=== PATIENT | male | born 1960 | race Caucasian/White ===

== ENCOUNTER 2023-10-18 10:35 | Observation (INO) | payer BC, SELFPAY ==
[2023-10-18] VITALS (72 sets, daily range): BP systolic 85–193; BP diastolic 68–139; PULSE 99–140; RESP 4–33; TEMP 36.3–36.6; O2SAT 93–98; BMI 35.9; BMI 36.7
--- NOTE | 2023-10-18 10:52 | ECG_ITS ---
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
--- NOTE | 2023-10-18 10:52 | ED.SOB1 ---
HPI - SOB/Dyspnea General Chief Complaint: Shortness of Breath/Dyspnea Stated Complaint: SOB Time Seen by Provider: 10/18/23 10:44 Source: patient Mode of arrival: walk-in Limitations: no limitations History of Present Illness HPI Narrative: 63-year-old male presents to the emergency department for shortness of breath. He states that he has not had a fever or cough. He gets quite short of breath with any small exertion. He also noted a swollen painful area in his left calf. He has never had a DVT. No injury there. He has been feeling this way for the last day or 2. Related Data Home Medications Medication Instructions Recorded Confirmed lisinopril 20 mg tablet 20 mg PO DAILY 10/18/23 10/18/23 Allergies Allergy/AdvReac Type Severity Reaction Status Date / Time aspirin Allergy Severe Verified 10/18/23 10:44 albuterol AdvReac Severe Palpitation Verified 10/18/23 10:44 s azithromycin [From Zithromax] AdvReac Severe Palpitation Verified 10/18/23 10:44 s Review of Systems ROS Narrative A ten point review of systems is negative except as noted above. PFSH PFSH Social History Smoking status: Former smoker Exam Narrative Exam Narrative: Nurses note and vital signs reviewed and patient is not hypoxic. General: The patient appears mildly dyspneic. Skin: Warm, dry, no pallor noted. There is no rash noted. Head: Normocephalic, atraumatic Eye: Normal conjunctiva, no drainage Ears, Nose, Mouth, and Throat: oral mucosa is moist. Nares patent. Cardiovascular: Regular Rate and Rhythm, tachycardia Respiratory: Patient is mildly dyspneic, no accessory muscle use, lungs are clear to auscultation, no wheezing, rales or rhonchi Back: non-tender GI: no tenderness to palpation, no masses appreciated. No rebound, guarding, or rigidity noted. Musculoskeletal: Chronic ankle edema present. He has a firm tender area on his left inferior medial calf region. Neurological: A&O x4, normal speech Psychiatric: Cooperative Constitutional Vital Signs, click to edit/add: Last Vital Signs Temp 97.7 F 10/18/23 10:38 Pulse 116 H 10/18/23 15:00 Resp 16 10/18/23 15:00 BP 176/110 H 10/18/23 14:42 Pulse Ox 95 10/18/23 12:31 Course Vital Signs Vital signs: Vital Signs Temperature 97.7 F 10/18/23 10:38 Pulse Rate 135 H 10/18/23 10:38 Respiratory Rate 20 10/18/23 10:38 Pulse Oximetry 98 10/18/23 10:38 Temperature 97.7 F 10/18/23 10:38 Pulse Rate 116 H 10/18/23 15:00 Respiratory Rate 16 10/18/23 15:00 Blood Pressure 176/110 H 10/18/23 14:42 Pulse Oximetry 95 10/18/23 12:31 MDM - SOB/Dyspnea MDM Narrative Medical decision making narrative: The patient presented with shortness of breath and he had persistent tachycardia here. CTA does not show a PE or pneumonia and his laboratory analysis is essentially negative. He was given IV Cardizem bolus which slowed his heart rate down and then he was placed on a Cardizem drip. He was also given additional IV hydralazine because of elevated blood pressure. He is being admitted to the ICU. Treatment diagnosis and disposition were discussed with the patient Differential Diagnosis Differential diagnosis: Likely congestive heart failure, community acquired pneumonia, asthma with exacerbation, pulmonary embolism and other (Pneumonia, pneumothorax) Lab Data Attestation: I reviewed the patient's lab results. Labs: Lab Results 10/18/23 10/18/23 Range/Units 10:47 10:53 WBC 8.4 (4.0-11.0) 10^3/uL RBC 4.88 (4.70-6.10) 10^6/uL Hgb 15.0 (14.0-18.0) g/dL Hct 45.7 (42.0-54.0) % MCV 93.6 (80.0-94.0) fL MCH 30.7 (25.9-34.0) pg MCHC 32.8 (29.9-35.2) g/dL RDW 12.8 (11.0-15.0) % Plt Count 213 (150-450) 10^3/uL MPV 9.4 L (9.5-13.5) fL Neut % (Auto) 71.4 (43.0-75.0) % Lymph % (Auto) 17.8 L (20.5-60.0) % Darke % (Auto) 9.4 (1.7-12.0) % Eos % (Auto) 1.1 (0.9-7.0) % Baso % (Auto) 0.1 L (0.2-2.0) % Neut # (Auto) 6.0 (1.4-6.5) 10^3/uL Lymph # (Auto) 1.5 (1.2-3.8) 10^3/uL Darke # (Auto) 0.8 (0.3-0.8) 10^3/uL Eos # (Auto) 0.1 (0.0-0.7) 10^3/uL Baso # (Auto) 0.0 (0.0-0.1) 10^3/uL Abs Immat Gran (auto) 0.02 (0.00-0.03) 10^3/uL Imm/Tot Granulo (auto) 0.2 (0.0-0.5) % Sodium 144 (136-145) mmol/L Potassium 4.3 (3.5-5.1) mmol/L Chloride 107 (98-107) mmol/L Carbon Dioxide 29.3 (21.0-32.0) mmol/L Anion Gap 12.0 BUN 23.0 H (7.0-18.0) mg/dL Creatinine 1.39 H (0.70-1.30) mg/dL Est GFR ( Amer) >60 (>=60) Est GFR (Non-Af Amer) 52 L (>=60) BUN/Creatinine Ratio 16.5 Glucose 114 H (74-106) mg/dL Calcium 9.0 (8.5-10.1) mg/dL Troponin I High Sens 29.3 (4.0-76.1) pg/mL Influenza Type A Ag Negative Influenza Type B Ag Negative SARS-CoV-2 Ag (CV2AG) Negative (NEGATIVE) Imaging Data CT scan - chest: Radiologist's impression: ITS Impressions Chest X-Ray 10/18/23 11:05 IMPRESSION: No acute heart or lung disease identified. Electronically authenticated by: DOUG JETT Date: 10/18/2023 11:38 Chest CTA 10/18/23 12:10 IMPRESSION: Negative exam. No pulmonary embolism or any acute cardiopulmonary abnormality demonstrated. Electronically authenticated by: BENNIE CRAWFORD Date: 10/18/2023 13:07 Venous Doppler Study 10/18/23 12:11 IMPRESSION: No sonographic evidence of deep venous thrombosis of the bilateral lower extremities. Noncompressible left great saphenous vein, representing thrombophlebitis. Electronically authenticated by: FAITH AMATO Date: 10/18/2023 13:36 ECG Data Attestation: I personally reviewed and interpreted this ECG as follows: (Initial EKG on my interpretation showed sinus tachycardia, uncertain rhythm. Repeat after IV Cardizem was given shows sawtooth pattern consistent with atrial flutter.) Critical Care Time Critical Care Time Critical Care Time: Yes Total Critical Care Time: 40 Attestation: Due to the high probability of sudden and clinically significant deterioration in the patient's condition he/she required the highest level of my preparedness to intervene urgently I provided critical care time including documentation time, medication orders and management, reevaluation, vital sign assessment, ordering and reviewing of lab tests, ordering and reviewing of x-ray studies, and admission orders. Aggregate critical care time is 40 minutes including only time during which I was engaged in work directly related to his/her care and did not include time spent treating other patients simultaneously. Discharge Plan Discharge Chief Complaint: Shortness of Breath/Dyspnea Clinical Impression: Atrial flutter Patient Disposition: Admitted As Inpatient Time of Disposition Decision: 15:25 Condition: Good Prescriptions / Home Meds: No Action lisinopril 20 mg tablet 20 mg PO DAILY Referrals: SHAQUILLE WHITTEN [Primary Care Provider] - 1 week
[2023-10-18 11:01] LABS: Basophils Percent Auto 0.1 % (0.2-2.0); Eosinophils Absolute Auto 0.1 10^3/uL (0.0-0.7); Eosinophils Percent Auto 1.1 % (0.9-7.0); Hematocrit 45.7 % (42.0-54.0); Immature Granulocytes Abs Auto 0.02 10^3/uL (0.00-0.03); Immature Granulocytes Pct Auto 0.2 % (0.0-0.5); Lymphocytes Absolute Auto 1.5 10^3/uL (1.2-3.8); Lymphocytes Percent Auto 17.8 % (20.5-60.0); Mean Corpuscular HGB Conc 32.8 g/dL (29.9-35.2); Mean Corpuscular Hemoglobin 30.7 pg (25.9-34.0); Mean Corpuscular Volume 93.6 fL (80.0-94.0); Mean Platelet Volume 9.4 fL (9.5-13.5); Monocytes Absolute Auto 0.8 10^3/uL (0.3-0.8); Monocytes Percent Auto 9.4 % (1.7-12.0); Neutrophils Percent Auto 71.4 % (43.0-75.0); Platelet Count 213 10^3/uL (150-450); Red Blood Count 4.88 10^6/uL (4.70-6.10); Red Cell Distribution Width 12.8 % (11.0-15.0); White Blood Count 8.4 10^3/uL (4.0-11.0)
--- NOTE | 2023-10-18 11:05 | XR_ITS ---
The [address] [address] Patient Name: LAISHA PERRIN MRN: [id number] date: 1960 Sex: M Assigned Patient Location: ER Current Patient Location: ER Accession/Order Number: [id number] Exam Date: 10/18/2023 11:00 Report Date: 10/18/2023 11:38 At the request of: RASHEEDA SAMS Procedure: XR chest 1V EXAM: XR chest 1V HISTORY: . SOB . COMPARISON: 07/11/2013 TECHNIQUE: Single view of the chest FINDINGS: Heart and vascularity are unremarkable. Lungs are free of focal infiltrates. No acute bony abnormality is appreciated. Left costophrenic angle was excluded on today's exam. XR/XR chest 1V IMPRESSION: No acute heart or lung disease identified. Electronically authenticated by: DOUG JETT Date: 10/18/2023 11:38
[2023-10-18 11:25] LABS: Influenza Virus A Antigen Negative; Influenza Virus B Antigen Negative; Internal Control Within Normal Limits; SARS-CoV-2 Ag NEGATIVE (NEGATIVE)
[2023-10-18 11:32] LABS: BUN Creatinine Ratio 16.5; Carbon Dioxide 29.3 mmol/L (21.0-32.0); Chloride 107 mmol/L (98-107); Estimated GFR (African America >60 (>=60); Estimated GFR (Non-African Ame 52 (>=60); Glucose 114 mg/dL (74-106); Potassium 4.3 mmol/L (3.5-5.1); Sodium 144 mmol/L (136-145); Troponin I High Sensitivity 29.3 pg/mL (4.0-76.1)
--- NOTE | 2023-10-18 12:10 | CT_ITS ---
[address] [address] Patient Name: LAISHA PERRIN MRN: [id number] date: 1960 Sex: M Assigned Patient Location: ER Current Patient Location: ER Accession/Order Number: [id number] Exam Date: 10/18/2023 12:33 Report Date: 10/18/2023 13:07 At the request of: RASHEEDA SAMS Procedure: CT angio chest EXAM: CT angio chest; [id number] REASON FOR EXAM: Short of breath, tachycardia TECHNIQUE: Helical CT images of the chest were obtained after the administration of IV contrast. Multiplanar reformats and maximum intensity projection images were created at the scanner. Dose reduction technique used: Automated exposure control and/or adjustment of the mA and/or kV according to patient size and/or use of iterative reconstruction technique. COMPARISON: None. FINDINGS: Technical quality: Good. Chest: Support devices: None. Visualized Thyroid: No nodules. Chest wall: Within normal limits. Earline/mediastinum/esophagus: No mass. Thoracic lymph nodes: Benign granulomatous calcifications are present within the intrathoracic lymph nodes. Heart and vasculature: -No pulmonary artery filling defect to suggest pulmonary embolism. -Moderate cardiomegaly and mild dilation of the right and left main pulmonary arteries. -No pericardial effusion or aortic aneurysm. Visualized portions of the upper abdomen: Within normal limits. Musculoskeletal: No acute abnormality or suspicious osseous lesion. Lungs/airways: -There are 2 benign calcified granulomas present. -Mild bilateral dependent subpleural scarring and/or atelectasis. -Mild centrilobular emphysema. -No significant nodule or infiltrate. -The central airways are patent. Pleura: No pleural effusion or pneumothorax. CT/CT angio chest IMPRESSION: Negative exam. No pulmonary embolism or any acute cardiopulmonary abnormality demonstrated. Electronically authenticated by: BENNIE CRAWFORD Date: 10/18/2023 13:07
--- NOTE | 2023-10-18 12:11 | US_ITS ---
The [address] [address] Patient Name: LAISHA PERRIN MRN: [id number] date: 1960 Sex: M Assigned Patient Location: ER Current Patient Location: ER Accession/Order Number: [id number] Exam Date: 10/18/2023 12:13 Report Date: 10/18/2023 13:36 At the request of: RASHEEDA SAMS Procedure: US venous doppler LE BI EXAM: US venous doppler LE BI HISTORY: Pain and swelling COMPARISON: None. TECHNIQUE: Evaluation of the deep veins of the bilateral lower extremities was performed utilizing B-mode, color flow and spectral analysis. FINDINGS: Right lower extremity: The visualized vessels comprising the deep venous systems from the common femoral vein through the calf veins demonstrate appropriate compressibility, spontaneous color Doppler flow, and augmentation of flow on spectral Doppler with distal compression. Left lower extremity: The visualized vessels comprising the deep venous systems from the common femoral vein through the calf veins demonstrate appropriate compressibility, spontaneous color Doppler flow, and augmentation of flow on spectral Doppler with distal compression. Additional findings: Bilateral lower extremity edema is present. Noncompressible left great saphenous vein, representing thrombophlebitis. US/US venous doppler LE BI IMPRESSION: No sonographic evidence of deep venous thrombosis of the bilateral lower extremities. Noncompressible left great saphenous vein, representing thrombophlebitis. Electronically authenticated by: FAITH AMATO Date: 10/18/2023 13:36
[2023-10-18] MEDS: DILTIAZEM HCL 25 MG/5 ML VIAL 10 MG IV (13:47)
--- NOTE | 2023-10-18 13:51 | ECG_ITS ---
The 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
[2023-10-18] MEDS: dilTIAZem HCL 125 MG in 0.9 % SODIUM CHLORIDE 100 ML IV (14:41)
[2023-10-18] MEDS: HYDRALAZINE HCL 20 MG/ML VIAL 10 MG IVP (15:50)
--- NOTE | 2023-10-18 16:07 | P.HP_ITS ---
H&P: HPI History of Present Illness Chief complaint: SOB Narrative: Patient presented to the emergency room with increasing shortness of breath and rapid heart rate over the last couple of days. He does have a history of atrial fibrillation with rapid ventricular response in the past. This was related to medications. He has been on no different medications recently. In ER blood pressure was significantly elevated and found to have a acute atrial flutter with rapid ventricular rate. Started on Cardizem drip. CTA showed no pulmonary embolism. Does have some lower extremities pain ultrasound showed no DVT. Review of Systems ROS Status of ROS 10 or more systems reviewed and unremark able except as noted in history and below [facility] Social History Smoking status: Former smoker Meds Home Medications and Allergies Home Medications Medication Instructions Recorded Confirmed Type lisinopril 20 mg tablet 20 mg PO DAILY 10/18/23 10/18/23 History Allergies Allergy/AdvReac Type Severity Reaction Status Date / Time aspirin Allergy Severe Verified 10/18/23 10:44 albuterol AdvReac Severe Palpitation Verified 10/18/23 10:44 s azithromycin [From Zithromax] AdvReac Severe Palpitation Verified 10/18/23 10:44 s Exam Constitutional Vital Signs, click to edit/add: Last Vital Signs Temp 97.7 F 10/18/23 10:38 Pulse 116 H 10/18/23 15:00 Resp 16 10/18/23 15:00 BP 176/110 H 10/18/23 14:42 Pulse Ox 95 10/18/23 12:31 Documenting provider has reviewed patient's vital signs: yes Common normals: no apparent distress HENVA Common normals: nasal mucous membranes and turbinates normal Chest Common normals: inspection of chest normal Respiratory Common normals: normal respiratory effort and no retractions Cardio Common normals: irregular rate and irregular rhythm Rate: tachycardic Rhythm: abnormal rhythm GI Common normals: Normal to inspection, nondistended, normoactive bowel sounds present and soft to palpation Extremity Common normals: abnormal to inspection (Varicose veins bilaterally) Results Labs Labs: Short CBC 10/18/23 Range/Units 10:47 WBC 8.4 (4.0-11.0) 10^3/uL Hgb 15.0 (14.0-18.0) g/dL Hct 45.7 (42.0-54.0) % Plt Count 213 (150-450) 10^3/uL BMP 10/18/23 10:47 Sodium 144 Potassium 4.3 Chloride 107 Carbon Dioxide 29.3 BUN 23.0 H Creatinine 1.39 H Glucose 114 H Calcium 9.0 Assessment and Plan Assessment and Plan (1) Atrial flutter: Plan Respiratory distress, uncontrolled hypertension complicating acute atrial flutter with rapid ventricular response-Place patient on anticoagulants, check echocardiogram, check thyroid, magnesium, BNP and track serial troponins. Patient currently on Cardizem drip. Will titrate that to get heart rate less than 100. Start oral Cardizem as well. May need IV Lanoxin, as needed dosing written for. Check consult to cardiology Hypertension-continue with lisinopril, add metoprolol and the aforementioned Cardizem. Blood pressure significantly elevated on admission is possible cause for going into his atrial flutter Borderline elevation in creatinine-monitor daily. Patient states he had borderline diabetes in the past-will check sugars every morning With potentially controlling his rate and anticoagulating tonight possible discharge tomorrow. Will place patient observation status.
[2023-10-18 16:42] LABS: Magnesium 1.7 mg/dL (1.8-2.4)
[2023-10-18 16:48] LABS: Lactate/Lactic Acid 1.2 mmol/L (0.4-2.0)
[2023-10-18 16:57] LABS: Alanine Aminotransferase 28 U/L (16-63); Albumin Globulin Ratio 1.2; Albumin Level 3.7 g/dL (3.4-5.0); Alkaline Phosphatase 55 U/L (46-116); Aspartate Amino Transferase 22 U/L (15-37); Bilirubin Direct 0.3 mg/dL (0.0-0.2); Bilirubin Total 1.1 mg/dL (0.2-1.0); Free T3 2.98 pg/mL (2.18-3.98); Globulin 3.2 g/dL; Thyroid Stimulating Hormone 1.593 uIU/mL (0.358-3.740); Total Protein 6.9 g/dL (6.4-8.2); Troponin I High Sensitivity 70.5 pg/mL (4.0-76.1)
[2023-10-18 20:06] LABS: Troponin I High Sensitivity 78.5 pg/mL (4.0-76.1)
[2023-10-18] MEDS: APIXABAN 5 MG TABLET PO (21:50)
[2023-10-18] MEDS: DILTIAZEM HCL 60 MG TABLET PO (21:50)
[2023-10-18] MEDS: METOPROLOL TARTRATE 25 MG TABLET PO (21:50)
[2023-10-18] MEDS: HYDROCODONE/ACET 5-325 MG TABLET 1 TAB PO (22:33)
[2023-10-19] VITALS (24 sets, daily range): BP systolic 85–132; BP diastolic 52–109; PULSE 68–180; RESP 12–25; TEMP 36.4–36.8; O2SAT 93–97
[2023-10-19 04:34] LABS: Basophils Percent Auto 0.3 % (0.2-2.0); Eosinophils Absolute Auto 0.2 10^3/uL (0.0-0.7); Eosinophils Percent Auto 1.7 % (0.9-7.0); Hematocrit 43.3 % (42.0-54.0); Hemoglobin 14.2 g/dL (14.0-18.0); Immature Granulocytes Abs Auto 0.02 10^3/uL (0.00-0.03); Immature Granulocytes Pct Auto 0.2 % (0.0-0.5); Lymphocytes Absolute Auto 2.2 10^3/uL (1.2-3.8); Lymphocytes Percent Auto 24.5 % (20.5-60.0); Mean Corpuscular HGB Conc 32.8 g/dL (29.9-35.2); Mean Corpuscular Hemoglobin 30.7 pg (25.9-34.0); Mean Corpuscular Volume 93.5 fL (80.0-94.0); Mean Platelet Volume 9.5 fL (9.5-13.5); Monocytes Absolute Auto 0.9 10^3/uL (0.3-0.8); Monocytes Percent Auto 9.7 % (1.7-12.0); Neutrophils Absolute Auto 5.6 10^3/uL (1.4-6.5); Neutrophils Percent Auto 63.6 % (43.0-75.0); Platelet Count 216 10^3/uL (150-450); Red Blood Count 4.63 10^6/uL (4.70-6.10); Red Cell Distribution Width 13.1 % (11.0-15.0); White Blood Count 8.8 10^3/uL (4.0-11.0)
[2023-10-19 04:49] LABS: Alanine Aminotransferase 24 U/L (16-63); Albumin Globulin Ratio 1.1; Albumin Level 3.3 g/dL (3.4-5.0); Alkaline Phosphatase 49 U/L (46-116); Anion Gap 13.8; Aspartate Amino Transferase 19 U/L (15-37); BUN Creatinine Ratio 18.5; Bilirubin Total 0.7 mg/dL (0.2-1.0); Calcium 8.7 mg/dL (8.5-10.1); Carbon Dioxide 27.3 mmol/L (21.0-32.0); Chloride 106 mmol/L (98-107); Estimated GFR (African America >60 (>=60); Estimated GFR (Non-African Ame 59 (>=60); Globulin 2.9 g/dL; Glucose 110 mg/dL (74-106); Potassium 4.1 mmol/L (3.5-5.1); Sodium 143 mmol/L (136-145); Total Protein 6.2 g/dL (6.4-8.2)
--- OUTSIDE RECORDS SUMMARY | 2023-10-19 06:56 | XMS_ITS | CCD ---
Author Name Unknown Address [address] [place] [address] Organization [facility] Care Team Providers Care Medical Detail Representative Name Role Phone SHAQUILLE QUEEN Admitting Unavailable SHAQUILLE QUEEN Attending Unavailable SHAQUILLE QUEEN Primary Care Unavailable SHAQUILLE QUEEN Consulting Unavailable Shaquille Queen Unavailable Allie Gould Unavailable DO Shaquille Queen Primary Care Provider [phone] SAMANTHA Kim Attending Provider [phone] DO Shaquille Queen Attending Provider Babs Kim Admitting Unavailable Babs Kim Attending Unavailable Shaquille Queen Primary Care Unavailable Shaquille Queen Admitting Unavailable Shaquille Queen Attending Unavailable Shaquille Queen Primary Care Unavailable Allergies Allergy Classification Reported Allergen(s) Allergy Type Date of Onset Reaction(s) Facility (3 sources) Albuterol Drug Allergy [facility] [employer] Other (3 sources) Aspirin Drug Allergy Unknown [facility] Other (3 sources) Azithromycin Drug Allergy [facility] [employer] [facility] Other (3 sources) DAIRY Propensity to adverse reactions DIARRHEA [employer] Other Medications Current Medications Medication Drug Class(es) Dates Sig (Normalized) Sig (Original) 5-HTP 200 MG (3 sources) 5-HTP 200 MG as directed Orally Active Ashwagandha (3 sources) Ashwagandha 5200 mg Active cholecalciferol 0.25 mg oral capsule (1 source) Vitamin D Vitamin D3 250 MCG (50803 UT) as directed Orally Active clindamycin 300 mg oral capsule (2 sources) Lincosamide Antibacterial Start: 02-21-2023 take 1 capsule by mouth every eight hours Clindamycin HCl 300 MG 1 cap(s) Orally tid for 10 day(s) Feb, Active L-Arginine (3 sources) L-Arginine Active Magnesium glycinate (3 sources) Magnesium Glycinate Active [place] 3 1000 MG (3 sources) take 1 capsule by mouth once daily [place] 3 1000 MG 1 capsule Orally Once a day Active Turmeric Curcumin 500 MG (3 sources) take 3 tablets by mouth once daily Turmeric Curcumin 500 MG 3 tab Orally DAILY Active Vitamin D3 250 MCG (64789 UT) (2 sources) Vitamin D3 250 MCG (86413 UT) as directed Orally Active Vitamin K2 100 MCG (3 sources) Vitamin K2 100 MCG as directed Orally Active Completed/Discontinued Medications Medication Drug Class(es) Dates Sig (Normalized) Sig (Original) [place] Bergamot (3 sources) [place] Bergamot 1000 mg Not-Taking [place] Bergamot 1000 mg Active lisinopril 20 mg oral tablet (3 sources) Angiotensin Converting Enzyme Inhibitor Start: 11-23-2017 take 1 tablet by mouth every twenty-four hours Lisinopril 20 MG 1 tablet Orally Once a day for 90 day(s) PRN Nov, Not-Taking Testosterone (3 sources) Androgen Testosterone OTC Not-Taking Testosterone OTC Active Problems Active Problems Problem Classification Problem Date Documented Date Episodic/Chronic Chronic ulcer of skin (3 sources) Non-pressure chronic ulcer of other part of left foot limited to breakdown of skin; Translations: [Ulcer of left foot, limited to breakdown of skin] Chronic Diabetes mellitus without complication (1 source) Prediabetes; Translations: [Prediabetes] Onset: 07-02-2023 Episodic Diabetes mellitus without complication (1 source) Prediabetes; Translations: [PREDIABETES] Onset: 04-18-2020 Essential hypertension (6 sources) Essential (primary) hypertension; Translations: [Essential hypertension] Onset: 04-18-2020 Resolved: 04-30-2022 Chronic Malaise and fatigue (3 sources) Fatigue; Translations: [Chronic fatigue, unspecified] Chronic Other aftercare (1 source) Encounter for therapeutic drug level monitoring; Translations: [Encounter for therapeutic drug level monitoring] Onset: 07-02-2023 Episodic Other inflammatory condition of skin (3 sources) Scalp psoriasis; Translations: [Psoriasis, unspecified] Chronic Other nutritional; endocrine; and metabolic disorders (4 sources) Disorder of lipoprotein metabolism, unspecified; 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 UNS] Onset: 04-10-2020 Chronic Other nutritional; endocrine; and metabolic disorders (3 sources) Body mass index 30+ - obesity; Translations: [Body mass index (BMI) 30.0-30.9, adult] Chronic Other screening for suspected conditions (not mental disorders or infectious disease) (2 sources) Encounter for screening for malignant neoplasm of prostate; Translations: [Encounter for screening for cardiovascular disorders] Onset: 04-18-2020 Episodic Other upper respiratory disease (3 sources) Allergic rhinitis; Translations: [Allergic rhinitis, unspecified] Chronic Other upper respiratory infections (3 sources) Chronic frontal sinusitis; Translations: [Chronic frontal sinusitis] Chronic Residual codes; unclassified (3 sources) History of partial resection of colon; Translations: [Acquired absence of other specified parts of digestive tract] Episodic Skin and subcutaneous tissue infections (1 source) Cellulitis of left lower limb Episodic Unclassified (1 source) Pain in left knee; Translations: [Pain in left knee] Onset: 06-12-2023 Past or Other Problems Problem Classification Problem Date Documented Da te Episodic/Chronic Other skin disorders (1 source) Other hypertrophic disorders of the skin Onset: 04-30-2022 Resolved: 04-30-2022 Episodic Results Test Name Value Interpretation Reference Range Facility Alanine aminotransferase [En zymatic activity/volume] in Serum or PlasmaOrdered By: Shaquille Queen on 07-02-2023 ALT [Catalytic activity/Vol] 14 U/L 7-52 [facility] Albumin [Mass/volume] in Ser um or Plasma by Bromocresol green (BCG) dye binding methoOrdered By: Shaquille Queen on 07-02-2023 Albumin BCG dye [Mass/Vol] 4.3 g/dL 3.5-5.7 [facility] Alkaline phosphatase [Enzyma tic activity/volume] in Serum or PlasmaOrdered By: Shaquille Queen on 07-02-2023 ALP [Catalytic activity/Vol] 54 U/L 34-104 [facility] Aspartate aminotransferase [ Enzymatic activity/volume] in Serum or PlasmaOrdered By: Shaquille Queen on 07-02-2023 AST [Catalytic activity/Vol] 17 U/L 13-39 [facility] Basophils Auto (Bld) [#/Vol] Ordered By: Shaquille Queen on 07-02-2023 Basophils (Bld) [#/Vol] 0.0 10*3/uL 0.0-0.2 [facility] Basophils/100 WBC Auto (Bld) Ordered By: Shaquille Queen on 07-02-2023 Basophils/100 WBC (Bld) 0.3 % . [facility] Bilirubin.total [Mass/volume ] in Serum or PlasmaOrdered By: Shaquille Queen on 07-02-2023 Bilirubin [Mass/Vol] 1.1 mg/dL 0.3-1.0 [facility] Calcium [Mass/volume] in Ser um or PlasmaOrdered By: Shaquille Queen on 07-02-2023 Calcium [Mass/Vol] 9.2 mg/dL 8.6-10.3 [facility] Carbon dioxide, total [Moles /volume] in Serum or PlasmaOrdered By: Shaquille Queen on 07-02-2023 CO2 [Moles/Vol] 29.8 mmol/L 21.0-31.0 [facility] Chloride [Moles/volume] in S wander or PlasmaOrdered By: Shaquille Queen on 07-02-2023 Chloride [Moles/Vol] 101 mmol/L 98-107 [facility] Cholesterol [Mass/volume] in Serum or PlasmaOrdered By: Shaquille Queen on 07-02-2023 Cholesterol [Mass/Vol] 172 mg/dL 140-200 [facility] Comment on above: Chol less than 200 m g/dl low riskChol 201-239 mg/dl borderline riskChol 240 mg/dl and greater high risk Cholesterol in LDL Calc [Mas s/Vol]Ordered By: Shaquille Queen on 07-02-2023 Cholesterol in LDL [Mass/Vol] 116 mg/dL 0-100 [facility] Comment on above: LDL ATP III CLASSIFI CATIONLDL less than 100 mg/dL OptimalLDL 100-129 mg/dL Near or above optimalLDL 130-159 mg/dL Borderline highLDL 160-189 mg/dL HighLDL greater than 189 mg/dL Very high Cholesterol in VLDL Calc [Ma ss/Vol]Ordered By: Shaquille Queen on 07-02-2023 Cholesterol in VLDL [Mass/Vol] 16 mg/dL [facility] Complete Blood Count Auto Di ffon 07-02-2023 Basophils (Bld) [#/Vol] 0.0 10*3/uL Normal 0.0-0.2 [facility] Comment on above: Order Comment: Reaso n for Exam Essential hypertension;Pre-diabetes;Medication FASTING monitoring en Result Comment: PERF ORMED BY: [place] [address] PATHOLOGIST [employer] ALMA GONZALEZ M.D. Performed By: #### L IPID, CMP, CBC #### [facility] [address] Basophils/100 WBC (Bld) 0.3 % Normal . [facility] Comment on above: Order Comment: Reaso n for Exam Essential hypertension;Pre-diabetes;Medication FASTING monitoring en Performed By: #### L IPID, CMP, CBC #### [facility] [address] [place] [address] [place] Eosinophils (Bld) [#/Vol] 0.1 10*3/uL Normal 0.0-0.45 [facility] Comment on above: Order Comment: Reaso n for Exam Essential hypertension;Pre-diabetes;Medication FASTING monitoring en Performed By: #### L IPID, CMP, CBC #### [facility] [address] [place] [address] [place] Eosinophils/100 WBC (Bld) 2.0 % Normal . [facility] Comment on above: Order Comment: Reaso n for Exam Essential hypertension;Pre-diabetes;Medication FASTING monitoring en Performed By: #### L IPID, CMP, CBC #### [facility] [address] [place] [address] [place] Erythrocyte distribution width (RBC) [Ratio] 13.3 % Normal 12.0-14.8 [facility] Comment on above: Order Comment: Reaso n for Exam Essential hypertension;Pre-diabetes;Medication FASTING monitoring en Performed By: #### L IPID, CMP, CBC #### [address] Hematocrit (Bld) [Volume fraction] 44.5 % Normal 38.8-50.0 [facility] Comment on above: Order Comment: Reaso n for Exam Essential hypertension;Pre-diabetes;Medication FASTING monitoring en Performed By: #### L IPID, CMP, CBC #### [address] Hemoglobin (Bld) [Mass/Vol] 15.1 g/dL Normal 13.0-17.0 [facility] Comment on above: Order Comment: Reaso n for Exam Essential hypertension;Pre-diabetes;Medication FASTING monitoring en Performed By: #### L IPID, CMP, CBC #### [address] Lymphocytes (Bld) [#/Vol] 1.7 10*3/uL Normal 1.00-4.8 [facility] Comment on above: Order Comment: Reaso n for Exam Essential hypertension;Pre-diabetes;Medication FASTING monitoring en Performed By: #### L IPID, CMP, CBC #### [address] Lymphocytes/100 WBC (Bld) 22.6 % Normal . [facility] Comment on above: Order Comment: Reaso n for Exam Essential hypertension;Pre-diabetes;Medication FASTING monitoring en Performed By: #### L IPID, CMP, CBC #### [place] [address] [place] MCH (RBC) [Entitic mass] 30.9 pg Normal 27.5-35.2 [facility] Comment on above: Order Comment: Reaso n for Exam Essential hypertension;Pre-diabetes;Medication FASTING monitoring en Performed By: #### L IPID, CMP, CBC #### [address] MCV (RBC) [Entitic vol] 90.9 fL Normal 83.5-101 [facility] Comment on above: Order Comment: Reaso n for Exam Essential hypertension;Pre-diabetes;Medication FASTING monitoring en Performed By: #### L IPID, CMP, CBC #### [facility] [address] Mean Corpuscular HGB Conc 33.9 g/dL Normal 32.5-35.6 [facility] Comment on above: Order Comment: Reaso n for Exam Essential hypertension;Pre-diabetes;Medication FASTING monitoring en Performed By: #### L IPID, CMP, CBC #### [facility] [address] [place] [address] [place] Monocytes (Bld) [#/Vol] 0.8 10*3/uL Normal 0.0-0.8 [facility] Comment on above: Order Comment: Reaso n for Exam Essential hypertension;Pre-diabetes;Medication FASTING monitoring en Performed By: #### L IPID, CMP, CBC #### [facility] [address] [place] [address] [place] Monocytes/100 WBC (Bld) 10.7 % Normal . [facility] Comment on above: Order Comment: Reaso n for Exam Essential hypertension;Pre-diabetes;Medication FASTING monitoring en Performed By: #### L IPID, CMP, CBC #### [facility] [address] [place] [address] [place] Neutrophils (Bld) [#/Vol] 4.8 10*3/uL Normal 1.8-7.7 [facility] Comment on above: Order Comment: Reaso n for Exam Essential hypertension;Pre-diabetes;Medication FASTING monitoring en Performed By: #### L IPID, CMP, CBC #### [facility] [address] [place] [address] [place] Neutrophils/100 WBC (Bld) 64.4 % Normal . [facility] Comment on above: Order Comment: Reaso n for Exam Essential hypertension;Pre-diabetes;Medication FASTING monitoring en Performed By: #### L IPID, CMP, CBC #### [facility] [address] [place] [address] [place] NRBC% 0.2 /100{WBC} Normal 0-0.5 [facility] Comment on above: Order Comment: Reaso n for Exam Essential hypertension;Pre-diabetes;Medication FASTING monitoring en Performed By: #### L IPID, CMP, CBC #### [facility] [address] Platelet mean volume (Bld) [Entitic vol] 7.8 fL Normal 6.6-10.1 [facility] Comment on above: Order Comment: Reaso n for Exam Essential hypertension;Pre-diabetes;Medication FASTING monitoring en Performed By: #### L IPID, CMP, CBC #### [facility] [address] Platelets (Bld) [#/Vol] 212 10*3/uL Normal 150-450 [facility] Comment on above: Order Comment: Reaso n for Exam Essential hypertension;Pre-diabetes;Medication FASTING monitoring en Performed By: #### L IPID, CMP, CBC #### [facility] [address] RBC (Bld) [#/Vol] 4.90 10*6/uL Normal 3.90-5.60 [facility] Comment on above: Order Comment: Reaso n for Exam Essential hypertension;Pre-diabetes;Medication FASTING monitoring en Performed By: #### L IPID, CMP, CBC #### [address] WBC (Bld) [#/Vol] 7.4 10*3/uL Normal 4.1-10.5 [facility] Comment on above: Order Comment: Reaso n for Exam Essential hypertension;Pre-diabetes;Medication FASTING monitoring en Performed By: #### L IPID, CMP, CBC #### [facility] [address] Comprehensive Metabolic Pane yanely 07-02-2023 Albumin [Mass/Vol] 4.3 g/dL Normal 3.5-5.7 [facility] Comment on above: Order Comment: Reaso n for Exam Essential hypertension;Pre-diabetes Reason for Exam Encounter for screening for cardiovascular disorders Performed By: #### L IPID, CMP, CBC #### [address] Albumin/Globulin [Mass ratio] 2.0 {ratio} Normal [facility] Comment on above: Order Comment: Reaso n for Exam Essential hypertension;Pre-diabetes Reason for Exam Encounter for screening for cardiovascular disorders Performed By: #### L IPID, CMP, CBC #### [facility] [address] [place] [address] [facility] ALP [Catalytic activity/Vol] 54 U/L Normal 34-104 [facility] Comment on above: Order Comment: Reaso n for Exam Essential hypertension;Pre-diabetes Reason for Exam Encounter for screening for cardiovascular disorders Performed By: #### L IPID, CMP, CBC #### [facility] [address] ALT [Catalytic activity/Vol] 14 U/L Normal 7-52 [facility] Comment on above: Order Comment: Reaso n for Exam Essential hypertension;Pre-diabetes Reason for Exam Encounter for screening for cardiovascular disorders Performed By: #### L IPID, CMP, CBC #### [facility] [address] [place] [address] [place] Anion gap [Moles/Vol] 9.8 mmol/L Normal 6.0-15.0 [facility] Comment on above: Order Comment: Reaso n for Exam Essential hypertension;Pre-diabetes Reason for Exam Encounter for screening for cardiovascular disorders Performed By: #### L IPID, CMP, CBC #### [facility] [address] [place] [id number] [place] AST [Catalytic activity/Vol] 17 U/L Normal 13-39 [facility] Comment on above: Order Comment: Reaso n for Exam Essential hypertension;Pre-diabetes Reason for Exam Encounter for screening for cardiovascular disorders Performed By: #### L IPID, CMP, CBC #### [facility] [address] [place] [id number] [place] Bilirubin [Mass/Vol] 1.1 mg/dL High 0.3-1.0 [facility] Comment on above: Order Comment: Reaso n for Exam Essential hypertension;Pre-diabetes Reason for Exam Encounter for screening for cardiovascular disorders Performed By: #### L IPID, CMP, CBC #### [facility] [address] [place] [address] [place] Calcium [Mass/Vol] 9.2 mg/dL Normal 8.6-10.3 [facility] Comment on above: Order Comment: Reaso n for Exam Essential hypertension;Pre-diabetes Reason for Exam Encounter for screening for cardiovascular disorders Performed By: #### L IPID, CMP, CBC #### [facility] [address] Chloride [Moles/Vol] 101 mmol/L Normal 98-107 [facility] Comment on above: Order Comment: Reaso n for Exam Essential hypertension;Pre-diabetes Reason for Exam Encounter for screening for cardiovascular disorders Performed By: #### L IPID, CMP, CBC #### [facility] [address] CO2 [Moles/Vol] 29.8 mmol/L Normal 21.0-31.0 [facility] Comment on above: Order Comment: Reaso n for Exam Essential hypertension;Pre-diabetes Reason for Exam Encounter for screening for cardiovascular disorders Performed By: #### L IPID, CMP, CBC #### [facility] [address] Creatinine [Mass/Vol] 1.15 mg/dL Normal 0.70-1.30 [facility] Comment on above: Order Comment: Reaso n for Exam Essential hypertension;Pre-diabetes Reason for Exam Encounter for screening for cardiovascular disorders Performed By: #### L IPID, CMP, CBC #### [facility] [address] GFR/1.73 sq M.predicted MDRD (S/P/Bld) [Vol rate/Area] mL/min/{1.73_m2} Normal [facility] Comment on above: Order Comment: Reaso n for Exam Essential hypertension;Pre-diabetes Reason for Exam Encounter for screening for cardiovascular disorders Performed By: #### L IPID, CMP, CBC #### [facility] [address] Globulin (S) [Mass/Vol] 2.1 g/dL Normal [facility] Comment on above: Order Comment: Reaso n for Exam Essential hypertension;Pre-diabetes Reason for Exam Encounter for screening for cardiovascular disorders Performed By: #### L IPID, CMP, CBC #### [facility] [address] [place] [address] [place] Glucose [Mass/Vol] 102 mg/dL High 70-100 [facility] Comment on above: Order Comment: Reaso n for Exam Essential hypertension;Pre-diabetes Reason for Exam Encounter for screening for cardiovascular disorders Result Comment: [facility] Glucose Reference Range is dependent on time and content of last meal. Glucose of more than 200 mg/dL in a nonstressed, ambulatory subject supports the diagnosis of Diabetes Mellitus. ADA recommended reference range Performed By: #### L IPID, CMP, CBC #### [facility] [address] [place] [address] [place] Potassium [Moles/Vol] 4.6 mmol/L Normal 3.5-5.1 [facility] Comment on above: Order Comment: Reaso n for Exam Essential hypertension;Pre-diabetes Reason for Exam Encounter for screening for cardiovascular disorders Performed By: #### L IPID, CMP, CBC #### [facility] [address] [place] [id number] [place] Protein [Mass/Vol] 6.4 g/dL Normal 6.4-8.9 [facility] Comment on above: Order Comment: Reaso n for Exam Essential hypertension;Pre-diabetes Reason for Exam Encounter for screening for cardiovascular disorders Performed By: #### L IPID, CMP, CBC #### [facility] [address] [place] [address] [place] Sodium [Moles/Vol] 136 mmol/L Normal 136-145 [facility] Comment on above: Order Comment: Reaso n for Exam Essential hypertension;Pre-diabetes Reason for Exam Encounter for screening for cardiovascular disorders Performed By: #### L IPID, CMP, CBC #### [facility] [address] [place] [address] [place] Urea nitrogen [Mass/Vol] 18 mg/dL Normal 7-25 [facility] Comment on above: Order Comment: Reaso n for Exam Essential hypertension;Pre-diabetes Reason for Exam Encounter for screening for cardiovascular disorders Performed By: #### L IPID, CMP, CBC #### [facility] [address] [place] [address] [place] Creatinine [Mass/volume] in Serum or PlasmaOrdered By: Shaquille Queen on 07-02-2023 Creatinine [Mass/Vol] 1.15 mg/dL 0.70-1.30 [facility] Eosinophils Auto (Bld) [#/Vo l]Ordered By: Shaquille Queen on 07-02-2023 Eosinophils (Bld) [#/Vol] 0.1 10*3/uL 0.0-0.45 [facility] Eosinophils/100 WBC Auto (Bl d)Ordered By: Shaquille Queen on 07-02-2023 Eosinophils/100 WBC (Bld) 2.0 % . [facility] Erythrocyte distribution wid th Auto (RBC) [Ratio]Ordered By: Shaquille Queen on 07-02-2023 Erythrocyte distribution width (RBC) [Ratio] 13.3 % 12.0-14.8 [facility] Globulin Calc (S) [Mass/Vol] Ordered By: Shaquille Queen on 07-02-2023 Globulin (S) [Mass/Vol] 2.1 g/dL [facility] Glucose [Mass/volume] in Ser um or PlasmaOrdered By: Shaquille Queen on 07-02-2023 Glucose [Mass/Vol] 102 mg/dL 70-100 [facility] Comment on above: ADA recommended refe rence rangeRandom Glucose Reference Range is dependent on time and content of last meal. Glucose of more than 200 mg/dL in a nonstressed, ambulatory subject supports the diagnosis of Diabetes Mellitus. Hematocrit Auto (Bld) [Volum e fraction]Ordered By: Shaquille Queen on 07-02-2023 Hematocrit (Bld) [Volume fraction] 44.5 % 38.8-50.0 [facility] Hemoglobin [Mass/volume] in BloodOrdered By: Shaquille Queen on 07-02-2023 Hemoglobin (Bld) [Mass/Vol] 15.1 g/dL 13.0-17.0 [facility] Leukocytes [#/volume] correc natalio for nucleated erythrocytes in Blood by Automated counOrdered By: Shaquille Queen on 07-02-2023 WBC corrected for nucl RBC Auto (Bld) [#/Vol] 7.4 10*3/uL 4.1-10.5 [facility] Lipid Panelon 07-02-2023 Cholesterol [Mass/Vol] 172 mg/dL Normal 140-200 [facility] Comment on above: Order Comment: Reaso n for Exam Essential hypertension;Pre-diabetes Reason for Exam Encounter for screening for cardiovascular disorders Result Comment: Chol less than 200 mg/dl low risk Chol 201-239 mg/dl borderline risk Chol 240 mg/dl and greater high risk Performed By: #### L IPID, CMP, CBC #### [facility] [address] Cholesterol in HDL [Mass/Vol] 40 mg/dL Normal 23-92 [facility] Comment on above: Order Comment: Reaso n for Exam Essential hypertension;Pre-diabetes Reason for Exam Encounter for screening for cardiovascular disorders Result Comment: HDL CHOL ATP-III CLASSIFICATION Cardiovascular Risk HDL > or equal to 60 mg/dL LOW HDL < 40 mg/dL HIGH Performed By: #### L IPID, CMP, CBC #### [facility] [address] Cholesterol.total/Choles terol in HDL [Mass ratio] 4.3 {ratio} Normal <5.0 [facility] Comment on above: Order Comment: Reaso n for Exam Essential hypertension;Pre-diabetes Reason for Exam Encounter for screening for cardiovascular disorders Result Comment: PERF ORMED BY: [place] [address] PATHOLOGIST [employer] ALMA GONZALEZ M.D. Performed By: #### L IPID, CMP, CBC #### [facility] [address] [place] [address] LDL Cholesterol,Calculated 116 mg/dL High 0-100 [facility] Comment on above: Order Comment: Reaso n for Exam Essential hypertension;Pre-diabetes Reason for Exam Encounter for screening for cardiovascular disorders Result Comment: LDL ATP III CLASSIFICATION LDL less than 100 mg/dL Optimal LDL 100-129 mg/dL Near or above optimal LDL 130-159 mg/dL Borderline high LDL 160-189 mg/dL High LDL greater than 189 mg/dL Very high Performed By: #### L IPID, CMP, CBC #### [facility] [address] [place] [address] [place] Triglyceride w/Reflex 80 mg/dL Normal 0-149 [facility] Comment on above: Order Comment: Reaso n for Exam Essential hypertension;Pre-diabetes Reason for Exam Encounter for screening for cardiovascular disorders Result Comment: TRIG ATP III CLASSIFICATION TRIG less than 150 mg/dL Normal TRIG 150-199 mg/dL Borderline high TRIG 200-500 mg/dL High TRIG greater than 500 mg/dL Very high Standard traceable to the Center for Disease Conrtrol and Prevention (CDC) test method. Performed By: #### L IPID, CMP, CBC #### [facility] [address] VLDL CHOLESTEROL 16 mg/dL Normal [facility] Comment on above: Order Comment: Reaso n for Exam Essential hypertension;Pre-diabetes Reason for Exam Encounter for screening for cardiovascular disorders Performed By: #### L IPID, CMP, CBC #### [facility] [address] [place] [id number] [facility] Lymphocytes Auto (Bld) [#/Vo l]Ordered By: Shaquille Queen on 07-02-2023 Lymphocytes (Bld) [#/Vol] 1.7 10*3/uL 1.00-4.8 [facility] Lymphocytes/100 WBC Auto (Bl d)Ordered By: Shaquille Queen on 07-02-2023 Lymphocytes/100 WBC (Bld) 22.6 % . [facility] MCH Auto (RBC) [Entitic mass ]Ordered By: Shaquille Queen on 07-02-2023 MCH (RBC) [Entitic mass] 30.9 pg 27.5-35.2 [facility] MCHC Auto (RBC) [Mass/Vol]Or dered By: Shaquille Queen on 07-02-2023 MCHC (RBC) [Mass/Vol] 33.9 g/dL 32.5-35.6 [facility] MCV Auto (RBC) [Entitic vol] Ordered By: Shaquille Queen on 07-02-2023 MCV (RBC) [Entitic vol] 90.9 fL 83.5-101 [facility] Monocytes Auto (Bld) [#/Vol] Ordered By: Shaquille Queen on 07-02-2023 Monocytes (Bld) [#/Vol] 0.8 10*3/uL 0.0-0.8 [facility] Monocytes/100 WBC Auto (Bld) Ordered By: Shaquille Queen on 07-02-2023 Monocytes/100 WBC (Bld) 10.7 % . [facility] Neutrophils Auto (Bld) [#/Vo l]Ordered By: Shaquille Queen on 07-02-2023 Neutrophils (Bld) [#/Vol] 4.8 10*3/uL 1.8-7.7 [facility] Neutrophils/100 WBC Auto (Bl d)Ordered By: Shaquille Queen on 07-02-2023 Neutrophils/100 WBC (Bld) 64.4 % . [facility] No Panel InformationOrdered By: Shaquille Queen on 07-02-2023 Estimated GFR (CKD-EPI) > 60.0 mL/Min [facility] Creatinine Clearance (Chem N/A [facility] Nucleated erythrocytes [Pres ence] in Blood by Automated countOrdered By: Shaquille Queen on 07-02-2023 Nucleated RBC Auto Ql (Bld) 0.2 /100{WBC} 0-0.5 [facility] PSA Screen (Yearly Only)on 1 0 PSA Screen (Yearly Only) 2.130 ng/mL Normal 0.000-4.00 0 [facility] Comment on above: Order Comment: Reaso n for Exam Screening for prostate cancer Result Comment: PERF ORMED BY: [place] [address] PATHOLOGIST [employer] ALMA GONZALEZ M.D. Performed By: #### P SAS #### [address] Platelet mean volume Auto (B ld) [Entitic vol]Ordered By: Shaquille Queen on 07-02-2023 Platelet mean volume (Bld) [Entitic vol] 7.8 fL 6.6-10.1 [facility] Platelets Auto (Bld) [#/Vol] Ordered By: Shaquille Queen on 07-02-2023 Platelets (Bld) [#/Vol] 212 10*3/uL 150-450 [facility] Potassium [Moles/volume] in Serum or PlasmaOrdered By: Shaquille Queen on 07-02-2023 Potassium [Moles/Vol] 4.6 mmol/L 3.5-5.1 [facility] Prostate specific Ag [Mass/v olume] in Serum or PlasmaOrdered By: Shaquille Queen on 07-02-2023 Prostate specific Ag [Mass/Vol] 2.130 ng/mL 0.000-4.000 [facility] Protein [Mass/volume] in Ser um or PlasmaOrdered By: Shaquille Queen on 07-02-2023 Protein [Mass/Vol] 6.4 g/dL 6.4-8.9 [facility] RBC Auto (Bld) [#/Vol]Ordere d By: Shaquille Queen on 07-02-2023 RBC (Bld) [#/Vol] 4.90 10*6/uL 3.90-5.60 [facility] Serum or plasma albumin/glob ulin mass ratioOrdered By: Shaquille Queen on 07-02-2023 Albumin/Globulin [Mass ratio] 2.0 {ratio} [facility] Serum or plasma anion gap de terminationOrdered By: Shaquille Queen on 07-02-2023 Anion gap [Moles/Vol] 9.8 mmol/L 6.0-15.0 [facility] Serum or plasma high density lipoprotein (HDL) cholesterol measurementOrdered By: Shaquille Queen on 07-02-2023 Cholesterol in HDL [Mass/Vol] 40 mg/dL 23-92 [facility] Comment on above: HDL CHOL ATP-III CLA SSIFICATION Cardiovascular RiskHDL > or equal to 60 mg/dL LOWHDL < 40 mg/dL HIGH Serum or plasma total choles terol/high density lipoprotein (HDL) cholesterol mass ratOrdered By: Shaquille Queen on 07-02-2023 Cholesterol.total/Choles terol in HDL [Mass ratio] 4.3 {ratio} <5.0 [facility] Sodium [Moles/volume] in Ser um or PlasmaOrdered By: Shaquille Queen on 07-02-2023 Sodium [Moles/Vol] 136 mmol/L 136-145 [facility] Triglyceride [Mass/volume] i n Serum or PlasmaOrdered By: Shaquille Bret on 07-02-2023 Triglyceride [Mass/Vol] 80 mg/dL 0-149 [facility] Comment on above: TRIG ATP III CLASSIF ICATIONTRIG less than 150 mg/dL NormalTRIG 150-199 mg/dL Borderline highTRIG 200-500 mg/dL High TRIG greater than 500 mg/dL Very highStandard traceable to the Center for Disease Conrtrol and Prevention (CDC) test method. Urea nitrogen [Mass/volume] in Serum or PlasmaOrdered By: Shaquille Queen on 07-02-2023 Urea nitrogen [Mass/Vol] 18 mg/dL 7-25 [facility] WBC Auto (Bld) [#/Vol]Ordere d By: Shaquille Queen on 07-02-2023 WBC (Bld) [#/Vol] 7.4 10*3/uL 4.1-10.5 [facility] XR knee LT 4V*on 06-12-2023 XR knee LT 4V* [facility] [address] XRay Report Signed Patient: Ulises Vang MR#: [id number] : 1960 Acct:[id number] Age/Sex: 63 / M ADM Date: 06/12/23 Loc: XDUC Room: Type: [facility] Attending Dr: Babs Kim APRN Copies to: Babs Kim APRN Ordering Provider: Babs Kim APRN Date of Service: 06/12/23 XR/XR knee LT 4V*: Acute pain of left knee LEFT KNEE - 4 views COMPARISON: None CLINICAL DATA: Pain behind the knee cap for the past 2 weeks. No injury. AP, lateral and both oblique views were obtained. There is no acute fracture or dislocation. There is moderate narrowing at the medial tibiofemoral joint compartment. There is minor marginal spurring. There is a small knee effusion. No soft tissue swelling is noted. XR/XR knee LT 4V* IMPRESSION: DEGENERATIVE CHANGES. NO ACUTE BONY FINDINGS. Impression dictated by: Sandra Duke M.D.06/12/2023 2:19 PM Dictation Location: [place] [address] Transcribed By: [facility] 06/12/23 141 Dictated By: Sandra Duke MD 06/12/231417 Signed By: 06/12/23 141 [facility] Medication Managementon 05-07 Medication Management Entered by Yon De Paz MD on May 27, 2020 13:34:43 EDT From: Yon De Paz MD To: [facility]/pharmacy #[id number] Sent: 05/27/2020 13:34:43 EDT Subject: Medication Management Documented Complete:tamsulosin (tamsulosin 0.4 mg oral capsule) Signed by Yon De Paz MD 05/27/2020 13:34:00 Approved tamsulosin (TAMSULOSIN HCL 0.4 MG CAPSULE) TAKE 1 CAPSULE BY MOUTH EVERY DAY Qty: 30 cap(s) Days Supply: 30 Refills: 10 Substitutions [facility]owed [id number] Patient matched by Yon De Paz MD on 05/27/2020 13:34:34 EDT From: [facility]/pharmacy #[id number] To: Yon De Paz MD, MD Sent: May 27, 2020 10:00:10 AM CDT Subject: Medication Management Due: May 28, 2020 10:00:10 AM CDT On Hold Pending Signature Drug: tamsulosin (tamsulosin 0.4 mg oral capsule) TAKE 1 CAPSULE BY MOUTH EVERY DAY Quantity: 30 cap(s) Days Supply: 30 Refills: 10 Substitutions Allowed Notes from Pharmacy: Dispensed Drug: tamsulosin (tamsulosin 0.4 mg oral capsule) TAKE 1 CAPSULE BY MOUTH EVERY DAY Quantity: 30 cap(s) Days Supply: 30 Refills: 10 Substitutions Allowed Notes from Pharmacy: [facility] LIPID PROFILEon 04-10-2020 CHOL-HDL RATIO NORM SEE BELOW Normal [facility] Comment on above: Result Comment: 3.3 - 4.4 LOW RISK 4.4 - 7.1 AVERAGE RISK 7.1 - 11.0 MODERATE RISK >11.0 HIGH RISK Performed By: #### C MP, LIPID, PSASC #### [facility] [address], [place] [address] Fanny Sandra Cholesterol [Mass/Vol] 180 mg/dL Normal <=200 [facility] Comment on above: Performed By: #### C MP, LIPID, PSASC #### [facility] [address], [place] [address] Fanny Sandra Cholesterol in HDL [Mass/Vol] 35 mg/dL Normal [facility] Comment on above: Performed By: #### C MP, LIPID, PSASC #### [facility] [address] [place] [address] Fanny Sandra Cholesterol in HDL [Mass/Vol] > or = 60 mg/dl - LOW CARDIOVASCULAR RISK <40 mg/dl - HIGH CARDIOVASCULAR RISK Normal [facility] Comment on above: Performed By: #### C MP, LIPID, PSASC #### [facility] [address], [place] [address] Fnany Sandra Cholesterol in LDL [Mass/Vol] 104.8 mg/dL Normal [facility] Comment on above: Performed By: #### C MP, LIPID, PSASC #### [facility] [address], [place] [address] Fanny Sandra Cholesterol in LDL [Mass/Vol] SEE BELOW Normal [facility] Comment on above: Result Comment: <100 mg/dl OPTIMAL 100 - 129 mg/dl NEAR OR ABOVE OPTIMAL 130 - 159 mg/dl BORDERLINE HIGH 160 - 189 mg/dl HIGH >190 mg/dl VERY HIGH Performed By: #### C MP, LIPID, PSASC #### [facility] [address] [place] [address] Fanny Sandra Cholesterol.total/Choles terol in HDL [Mass ratio] 5.1 {ratio} Normal [facility] Comment on above: Performed By: #### C MP, LIPID, PSASC #### [facility] [address], [place] [address] Fanny Sandra Triglyceride [Mass/Vol] 201 mg/dL Critically high <=150 [facility] Comment on above: Performed By: #### C MP, LIPID, PSASC #### [facility] [address], [place] [address] Fanny Sandra VLDL CALC 40.2 mg/dL Normal [facility] Comment on above: Performed By: #### C MP, LIPID, PSASC #### [facility] [address], [place] [address] Fanny Sandra PROF 14(COMP METB)on 020 Albumin [Mass/Vol] 3.9 g/dL Normal 3.5-5.[address] [facility] Comment on above: Performed By: #### C MP, LIPID, PSASC #### [facility] [address] [place] [id number] Fanny Sandra Albumin/Globulin [Mass ratio] 1.3 {ratio} Normal [facility] Comment on above: Performed By: #### C MP, LIPID, PSASC #### [facility] [address] [place] [id number] Fanny Sandra ALP [Catalytic activity/Vol] 61 U/L Normal 38-126 [facility] Comment on above: Performed By: #### C MP, LIPID, PSASC #### [facility] [address] [place] [id number] Fanny Asndra ALT [Catalytic activity/Vol] 37 U/L Normal 21-72 [facility] Comment on above: Performed By: #### C MP, LIPID, PSASC #### [facility] [address], [place] [address] Fanny Sandra Anion gap [Moles/Vol] 8.4 mmol/L Normal [facility] Comment on above: Performed By: #### C MP, LIPID, PSASC #### [facility] [address] [place] [id number] Fanny Sandra AST [Catalytic activity/Vol] 20 U/L Normal 17-59 [facility] Comment on above: Performed By: #### C MP, LIPID, PSASC #### [facility] [address] [place] [address] Fanny Sandra Bilirubin Ql (U) 0.7 mg/dL Normal 0.2-1.3 [facility] Comment on above: Performed By: #### C MP, LIPID, PSASC #### [facility] [address] [place] [address] Fanny Sandra Calcium [Mass/Vol] 8.9 mg/dL Normal 8.4-10.[address] [facility] Comment on above: Performed By: #### C MP, LIPID, PSASC #### [facility] [address] [place] [address] Fanny Sandra Chloride [Moles/Vol] 103 mmol/L Normal 98-107 [facility] Comment on above: Performed By: #### C MP, LIPID, PSASC #### [facility] [address] [place] [address] Fanny Sandra CO2 [Moles/Vol] 32.6 mmol/L Critically high 22.0-30.0 [facility] Comment on above: Performed By: #### C MP, LIPID, PSASC #### [facility] [address] [place] [address] Fanny Sandra Creatinine [Mass/Vol] 1.09 mg/dL Normal 0.66-1.25 [facility] Comment on above: Performed By: #### C MP, LIPID, PSASC #### [facility] [address] [place], [place] [phone] Fanny Sandra EGFR-AF QATARI >60 Normal >=60 [facility] Comment on above: Performed By: #### C MP, LIPID, PSASC #### [facility] [address] [place] [address] Fanny Sandra EGFR-NON AF QATARI >60 Normal >=60 [facility] Comment on above: Performed By: #### C MP, LIPID, PSASC #### [facility] [address] [place] [address] Fanny Sandra Globulin (S) [Mass/Vol] 3.1 g/dL Normal [facility] Comment on above: Performed By: #### C MP, LIPID, PSASC #### [facility] [address] [place] [address] Fanny Sandra Glucose [Mass/Vol] 105 mg/dL Normal 74-[address] [facility] Comment on above: Performed By: #### C MP, LIPID, PSASC #### [facility] [address] [place], [place] [phone] Fanny Sandra Potassium [Moles/Vol] 4.0 mmol/L Normal 3.4-5.0 [facility] Comment on above: Performed By: #### C MP, LIPID, PSASC #### [facility] [address] [place] [address] Fanny Sandra Protein [Mass/Vol] 7.0 g/dL Normal 6.1-8.[address] [facility] Comment on above: Performed By: #### C MP, LIPID, PSASC #### [facility] [address] [place] [address] Fanny Sandra Sodium [Moles/Vol] 140 mmol/L Normal 137-[address] [facility] Comment on above: Performed By: #### C MP, LIPID, PSASC #### [facility] [address] [place], [place] [phone] Fanny Sandra Urea nitrogen [Mass/Vol] 13.0 mg/dL Normal 9.0-20.0 [facility] Comment on above: Performed By: #### C MP, LIPID, PSASC #### [facility] [address] [place], [place] [phone] Fanny Sandra Urea nitrogen/Creatinine [Mass ratio] 11.9 mg/mg Normal [facility] Comment on above: Performed By: #### C MP, LIPID, PSASC #### [facility] [address] [place], [place] [phone] Fanny Sandra Vital Signs Date Time Vital Sign Value Performing Clinician Facility 02-21-2023 10:35-0400 Body height 187.96 cm Allie Gould Other [facility] Other 02-21-2023 10:35-0400 Body mass index (BMI) [Ratio] 36.69 kg/m2 Allie Gould Other [facility] Other 02-21-2023 10:35-0400 Body temperature 97.7 [degF] Allie Gould Other [facility] Other 02-21-2023 10:35-0400 Body weight 129.64 kg Allie Gould Other [facility] Other 02-21-2023 10:35-0400 Diastolic blood pressure 90 mm[Hg] Allie Tapiamond Other [facility] Other 02-21-2023 10:35-0400 Respiratory rate 18 /min Allie Gould Other [facility] Other 02-21-2023 10:35-0400 SaO2% (BldA) [Mass fraction] 97 % Allie Gould Other [facility] Other 02-21-2023 10:35-0400 Systolic blood pressure 144 mm[Hg] Allie Gould Other [facility] Other 04-30-2022 09:00-0400 Body height 187.96 cm Shaquille Queen Other [facility] Other 04-30-2022 09:00-0400 Body mass index (BMI) [Ratio] 35.21 kg/m2 Shaquille Queen Other [facility] Other 04-30-2022 09:00-0400 Body weight 124.42 kg Shaquille Queen Other [facility] Other 04-30-2022 09:00-0400 Diastolic blood pressure 88 mm[Hg] Shaquille Queen Other [facility] Other 04-30-2022 09:00-0400 Respiratory rate 18 /min Shaquille Queen Other [facility] Other 04-30-2022 09:00-0400 SaO2% (BldA) [Mass fraction] 97 % Shaquille Queen Other [facility] Other 04-30-2022 09:00-0400 Systolic blood pressure 138 mm[Hg] Shaquille Queen Other [facility] Other Encounters Encounter Date Encounter Type Care Provider Facility Start: 07-02-2023 End: 07-02-2023 ambulatory Shaquille Queen Facility:[facility] Start: 07-02-2023 End: 07-02-2023 ambulatory DO Shaquille Queen Work Phone: [facility] Work Phone: Start: 07-02-2023 End: 07-02-2023 Patient encounter procedure DO Shaquille Queen Work Phone: [facility] [place] Work Phone: Start: 06-12-2023 End: 06-12-2023 ambulatory Babs Kim Facility:[facility] Start: 06-12-2023 End: 06-12-2023 ambulatory DO Shaquille Queen Work Phone: [facility] Work Phone: Start: 06-12-2023 End: 06-12-2023 Patient encounter procedure DO Shaquille Queen Work Phone: [facility] Work Phone: Start: 05-02-2023 End: 05-02-2023 ambulatory Shaquille Queen Other [facility] Other Start: 05-02-2023 Telephone encounter Shaquille Apple [facility] Start: 02-21-2023 End: 02-21-2023 ambulatory Allie Gould Other [facility] Other Start: 02-21-2023 Office outpatient vi sit 15 minutes Allie Gould [facility] Start: 04-30-2022 End: 04-30-2022 ambulatory Shaquille Queen Other [facility] Other Start: 04-30-2022 Encounter for genera l adult medical examination without abnormal findings Shaquille Queen [facility] Start: 04-30-2022 Periodic preventive med est patient 40-64yrs Shaquille Queen [facility] Start: 04-10-2020 End: 2020 Patient encounter procedure SHAQUILLE QUEEN Facility:[facility] Procedures Date Procedure Procedure Detail Performing Clinician Start: 06-12-2023 Radiologic examinati on of knee DO Shaquille Queen Work Phone: Start: 04-10-2020 [object Object] SHAQUILLE QUEEN Comment on above: Performed By: #### C MP, LIPID, PSASC #### [facility] [address] [place] [address] Fanny Flores Immunizations Immunization Date Immunization Notes Care Provider Fa cili 07-18-2020 influenza, injectabl e, quadrivalent, preservative free Shaquille Queen Other [facility] Other Payers Date Payer Category Payer Self-pay [id number] 1960 Unknown [id number] [id number] [id number] 1959 Unknown [id number] Unknown [id number] [id number] [id number] Unknown [id number] [id number] [id number] Social History Date Type Detail Facility Unknown if ever smoked [facility] Other Sex Assigned At Sex Assigned At Bir th [facility] Other Start: 1960 Sex Assigned At Male [facility] Evaluation note 02-21-2023 Note Date & Type Note Facility 02-21-2023 Evaluation note Encounter Date Diagnosis Assessment Notes Feb, Ulcer of left foot, limited to breakdown of skin (ICD-10 - L97.521) Drink plenty fluids, get plenty of rest. Continue home medications as prescribed. Take the clindamycin as prescribed until gone. Soak your foot in warm water with Epsom salt 2-3 times a day. Follow-up with your family physician if no improvement in 7 to 10 days. Go to the ER for worsening symptoms or concerns Feb, Cellulitis of left foot (ICD-10 - L03.116) Cellulitis: adult home care material was printed Feb, Other Wound infection home care material was printed [facility] Other Evaluation note 04-30-2022 Note Date & Type Note Facility 04-30-2022 Evaluation note Encounter Date Diagnosis Assessment Notes Apr, Well adult exam (ICD-10 - Z00.00) 62-year-old male who is doing very well and is not on any prescribed medication but is on a bunch of [id number] r supplements. His lab work was reviewed with him today and is all within normal limits. We did discuss statin therapy but he would like to keep going with his lifestyle modification and dietary modifications. He is can work on weight loss to help improve his overall health. He would like his skin tags were removed and it was removed today in the office due to it being irritated and in an area where it gets caught on clothing. He is to follow-up in 1 year or sooner if any acute issue arises. Apr, Essential hypertension (ICD-10 - I10) 26 Apr, 2022 Skin tag (ICD-10 - L91.8) [facility] Other Evaluation note Note Date & Type Note Facility Evaluation note No Information [facility] Other Evaluation note Note Date & Type Note Facility Evaluation note No assessment information availa [facility] Work Phone: History general Narrative - Reported Note Date & Type Note Facility History general Narrative - Reported Type Medical History Seasonal allergic rh initis, unspecified chronicity, unspecified trigger Medical History heart arrythmia x 1 occurance Medical History Remote history of al coholism and drug abuse Medical History LUNG NODULES/ BX NEGATIVE Medical History ELEVATED BLOOD SUGAR Medical History RIGHT LEG FRACTURE Medical History COLON MASS S/P FOOD BORN ILLNESS RESECTION OF COLON Surgical History RIGHT SHOULDER REPLACEMENT Surgical History ORIF OF THE RIGHT AN KLE/ TIB/ FIB WITH HARDWARE PLACEMENT 1994 Surgical History hernia Surgical History COLON RESECTION (1 F OOT) DUE TO MASS THAT DEVELOPED S/P FOOD BORN ILLNESS. BENIGN Surgical History hand surgery Surgical History colonoscopy Surgical History tonsillectomy Surgical History wisdom teeth Hospitalization History see above Hospitalization History PNEUMONIA [facility] Other Summary Purpose Family History No Family History Records FoundNo Family History Records FoundNo Family History Records Found Advance Directives No Advanced Directives Records Found Advance Directive Response Recorded Date/ Time Advance Directives No August 9:21am Chief Complaint and Reason for Visit Chief Complaint M25.562 I10 R73.03 Z51.81 Z12.5 Additional Source Comments (unrecognized sect ion and content) No Status Records FoundNo Status Records FoundNo Status Records Found INFORMATION SOURCE (unrecogn ized section and content) DATE CREATED AUTHOR 04/19/2020 [facility] DATE CREATED AUTHOR AUTHOR'S ORGANIZ ATION 05/27/2020 [facility] DATE CREATED AUTHOR AUTHOR'S ORGANIZ ATION 07/04/2023 [facility] REASON FOR VISIT (unrecogniz ed section and content) WELL ADULT/1 YEAR FOLLOWiNFE CTED LEFT FOOT, SHOE RUBBED HOLE AND MADE A OREmissed appt Care Teams (unrecognized sec tion and content) Team Status: Active Member Role Status Dates Shaquille Queen , Primary Care Provider Active Team Status: Inactive Member Role Status Dates Shaquille Queen , DO Primary Care Provider Active Babs Kim APRN Attending Provider Active Team Status: Inactive Member Role Status Dates Shaquille Queen , DO Primary Care Provider, Attending Provider Active Goals (unrecognized section and content) Goals may be documented in a n alternate section FOR RECORDS PERTAINING TO PATIENTS WHO ARE OR HAVE BEEN ENROLLED IN A CHEMICAL DEPENDENCY/SUBSTANCEABUSE PROGRAM, SOME INFORMATION MAY BE OMITTED. This clinical summary was aggregated from multiple sources. Caution should be exercised in using it in the provision of clinical care. This summary normalizes information from multiple sources, and as a consequence, information in this document may materially change the coding, format and clinical context of patient data. In addition, data may be omitted in some cases. CLINICAL DECISIONS SHOULD BE BASED ON THE PRIMARY CLINICAL RECORDS. [facility] [employer] provides no warranty or guarantee of the accuracy or completeness of information in this document.
[2023-10-19 06:59] LABS: Troponin I High Sensitivity 75.2 pg/mL (4.0-76.1)
[2023-10-19] MEDS: MAGNESIUM OXIDE 400 MG TABLET PO (08:44)
[2023-10-19] MEDS: DILTIAZEM HCL 120 MG CAP.ER.24H PO (08:44)
[2023-10-19] MEDS: METOPROLOL TARTRATE 25 MG TABLET PO ×2 (08:44→20:09)
--- NOTE | 2023-10-19 09:22 | P.PN_ITS ---
Progress Note: Subjective Subjective Interval history: Still with significant dyspnea despite improvement in heart rate. With crystal growing technician who does the calculations with ejection fraction. Currently calculations will consider this 20%. Will see if cardiology agrees. This is new for the patient. Exam Constitutional Vital Signs, click to edit/add: Last Vital Signs Temp 98.0 F 10/19/23 07:00 Pulse 87 10/19/23 08:30 Resp 16 10/19/23 08:30 BP 120/90 10/19/23 08:00 Pulse Ox 94 L 10/19/23 08:00 O2 Del Method Room Air 10/19/23 05:31 Documenting provider has reviewed patient's vital signs: yes Common normals: no apparent distress HENMT Common normals: nasal mucous membranes and turbinates normal Chest Common normals: inspection of chest normal Respiratory Common normals: normal respiratory effort and no retractions Cardio Common normals: regular rate; irregular rhythm Rate: not tachycardic Rhythm: abnormal rhythm GI Common normals: Normal to inspection, nondistended, normoactive bowel sounds present and soft to palpation Extremity Common normals: abnormal to inspection (Varicose veins bilaterally) Other: Slight increase in edema compared to previous day. Progress Note: Objective Labs Labs: Short CBC 10/18/23 10/19/23 Range/Units 10:47 04:03 WBC 8.4 8.8 (4.0-11.0) 10^3/uL Hgb 15.0 14.2 (14.0-18.0) g/dL Hct 45.7 43.3 (42.0-54.0) % Plt Count 213 216 (150-450) 10^3/uL BMP 10/18/23 10/19/23 10:47 04:03 Sodium 144 143 Potassium 4.3 4.1 Chloride 107 106 Carbon Dioxide 29.3 27.3 BUN 23.0 H 23.0 H Creatinine 1.39 H 1.24 Glucose 114 H 110 H Calcium 9.0 8.7 Liver Function 10/18/23 10/19/23 Range/Units 16:21 04:03 Total Bilirubin 1.1 H 0.7 (0.2-1.0) mg/dL Direct Bilirubin 0.3 H (0.0-0.2) mg/dL AST 22 19 (15-37) U/L ALT 28 24 (16-63) U/L Alkaline Phosphatase 55 49 (46-116) U/L Albumin 3.7 3.3 L (3.4-5.0) g/dL Progress Note: A&P Assessment and Plan (1) Atrial flutter: Plan Respiratory distress, uncontrolled hypertension complicating acute atrial flutter with rapid ventricular response-Place patient on anticoagulants, echocardiogram with significantly reduced ejection fraction.-Check plan with cardiology, change oral anticoagulants to heparin drip in case of transfer for heart cath. Elevated high-sensitivity troponin-better today. Continue to monitor. Just barely elevated likely due to rate related to demand ischemia. Elevated BNP-with the peripheral edema worse today, likely diastolic heart failure with reduced ejection fraction-plan per cardiology Hypertension-blood pressure low this morning, will hold his lisinopril, continue with metoprolol and Cardizem but use the long-acting Cardizem for rate control. Cough cough cough cough Borderline elevation in creatinine-monitor daily.-Resolved Hyperbilirubinemia possibly related to passive congestion from above. Improved today Patient states he had borderline diabetes in the past-will check sugars every morning With severity of his symptoms progressing. Still with dyspnea and now with peripheral edema consistent with diastolic heart failure with reduced ejection fraction and the atrial flutter, change patient to inpatient status, likely hospitalized 2 more days thus passing the 2 midnights
--- NOTE | 2023-10-19 09:27 | CM.NOTE ---
Rounds made with Dr. Benítez, discussed echo results with pt and need for director operating to evaluate pt. Also discussed possible transfer to higher level of care, pt verbalizes understanding and is in agreement.
[2023-10-19] MEDS: HEPARIN SODIUM,PORCINE/D5W 25,000 UNIT/500 ML IV.SOLN 20 UNIT IV (09:49)
[2023-10-19 10:45] LABS: Partial Thromboplastin Time 29.1 sec (22.3-36.2)
[2023-10-19] MEDS: SPIRONOLACTONE 25 MG TABLET PO (14:04)
--- NOTE | 2023-10-19 16:01 | CA_ITS ---
Patient Name: LAISHA PERRIN MR#: [id number] : 1960 Exam Date: 10/19/2023 Ordering Doctor: DR Jesus Benítez . ECHOCARDIOGRAM REPORT PROCEDURE: CA ECHO DOPPLER COMPLETE INDICATIONS: Dyspnea, Elevated troponin COMPARISON: None. DESCRIPTION: COMPLETE ECHOCARDIOGRAM Real-time transthoracic echocardiography with 2D, M-mode, spectral and color flow Doppler performed. QUALITY: Technical quality was good. LEFT VENTRICLE: Mild dilatation. Mild concentric left ventricular hypertrophy. LV EF: Global left ventricular systolic function is severely decreased. Visual estimation of left ventricular ejection fraction is 15-20%. Global hypokinesis. DIASTOLIC: Not adequately assessed due to heart rhythm. ATRIAL SEPTUM: Inadequately visualized. LEFT ATRIUM: Moderate dilatation. RIGHT ATRIUM: Severe dilatation. RIGHT VENTRICLE: Moderate dilatation. Decreased right ventricular systolic function. TRICUSPID VALVE: Normal mobility and thickness. Moderate regurgitation. Moderate pulmonary hypertension. RVSP 49mmHg MITRAL VALVE: Mildly thickened with normal mobility. No evidence of mitral valve stenosis. There is no mitral annular calcification. Moderate mitral regurgitation. AORTIC VALVE: Normal trileaflet appearance. No visible sclerosis. Normal leaflet mobility. No evidence of aortic valve stenosis. Trivial aortic regurgitation. AORTIC ROOT: Normal diameter and appearance. PULMONIC VALVE: Normal thickness and mobility. No stenosis. Mild regurgitation. PERICARDIUM: Anterior free space; trivial effusion versus fat pad. IVC: Moderate dilatation. Measuring 2.9cm with no collapse. CONCLUSION: 1. Global left ventricular systolic function is severely reduced; visually estimated ejection fraction is 15 to 20% 2. The right ventricle is moderately dilated with reduced systolic function 3. Mildly increased left ventricular wall thickness 4. Biatrial enlargement 5. Moderate tricuspid regurgitation 6. Moderately elevated right ventricular systolic pressure; RVSP 49 mmHg 7. Moderate mitral regurgitation 8. Mild pulmonic regurgitation 9. Anterior free space; trivial effusion versus fat pad Adult Echocardiography Procedure Report Left Ventricle LVEDD (3.7 - 5.6 cm): 6.33 cm LVESD (2.2 - 4.0 cm): 5.77 cm LVIVS thickness (0.6 - 1.2 cm): 1.10 cm LVPW thickness (0.5 - 1.0 cm): 0.98 cm e': 0.08 m/s E - e': 12.19 LVOT Max Gradient: 1.20 mm[Hg], 1.40 mm[Hg] LVOT Area (cm2): 0.57 m/s Peak Velocity (LVOT): 0.55 m/s, 0.59 m/s Mean Velocity (LVOT): 0.37 m/s LVOT Diameter 2.60 cm Left Ventricular Ejection Fraction: 20.14 % Left Atrium LA Volume Index (2D A2C): 51.86 ml/m2 Left Atrium Systolic Dimension: 4.90 cm Mitral Valve Mitral Valve E-Wave Peak Velocity: 0.96 m/s Right Ventricle RV Internal Diastolic Dimension: 5.13 cm Aorta AO Root Diam: 2.92 cm Ascending Ao Diam: 2.85 cm Aortic Valve AoV Area (Peak Ángel): 3.04 cm2, 2.83 cm2, 3.27 cm2 AoV Area (VTI): 3.35 cm2, 3.06 cm2, 3.66 cm2 Peak Velocity(Antegrade Flow): 1.03 m/s, 0.96 m/s Peak Gradient(Antegrade Flow): 4.21 mm[Hg], 3.66 mm[Hg] Mean Velocity(Antegrade Flow): 0.76 m/s, 0.71 m/s Mean Gradient(Antegrade Flow): 2.57 mm[Hg], 2.26 mm[Hg] Velocity Time Integral: 18.43 cm, 16.86 cm Tricuspid Valve Peak Velocity (Regurgitant Flow): 2.91 m/s, 2.78 m/s, 2.76 m/s, 2.83 m/s, 2.86 m/s Pulmonic Valve Mean Gradient: 2.03 mm[Hg], 0.96 mm[Hg], 1.62 mm[Hg] Mean Velocity: 0.69 m/s, 0.47 m/s, 0.62 m/s Peak Velocity: 0.78 m/s Peak Gradient: 3.22 mm[Hg], 1.70 mm[Hg], 2.44 mm[Hg] Right Atrium Right Atrium Systolic Pressure: 199.71 ml, 199.71 ml Dictated by: Eliot Bell M.D. on 10/19/2023 at 08:41 Approved by: Eliot Bell M.D. on 10/19/2023 at 08:46
[2023-10-19 16:16] LABS: PTT Heparin Monitor 30.8 sec (48.2-68.6)
--- NOTE | 2023-10-19 17:37 | P.CN_ITS ---
<Statement entered by PENNY BELTRE - 11/09/23 00:21> This documentation has been reviewed and approved. Consult Note: HPI Data of Consult Patient: new to practice Consult date: 10/19/23 Requesting Physician: Jesus Benítez MD Primary Care Provider: SHAQUILLE WHITTEN Consult Narrative Reason for consult: Atrial flutter with RVR, newly reduced EF Narrative: 63 yo male presented to the emergency room with increasing shortness of breath, fatigue and rapid heart rate over the last couple of days. Admits a history of atrial fibrillation with rapid ventricular response in the past while he was treated for PNA. This was related to medications. He has been on no different medications recently. In ER blood pressure was significantly elevated and found to have a acute atrial flutter with rapid ventricular rate. Started on Cardizem drip and currently is rate controlled with oral cardizem. CTA showed no pulmonary embolism. Does have some lower extremities pain ultrasound showed no DVT. Currently pt is up sitting in chair without s/s of distress, no acute events overnight. Remains in rate controlled A flutter. Admits SOB with exertion and orthopnea. Denied chest pain, recent illness, fever, chills, N/V/D. States leg swelling is much better than when he presented to ED. Currently on heparin infusion. cc:: CC: Jesus Benítez MD Review of Systems ROS Constitutional Reports: change in weight (admits weight gain over last 3-4 weeks); Denies: fever or chills Cardiovascular Reports: shortness of breath with exertion and shortness of breath when lying down; Denies: chest pain [facility] Medical History (Updated 10/19/23 @ 17:55 by SOCORRO ESCOABR) Tonsil and adenoid disease, chronic ?J35.9 - Chronic disease of tonsils and adenoids, unspecified (ICD-10) Gastritis ?K29.70 - Gastritis, unspecified, without bleeding (ICD-10) Bronchitis ?J40 - Bronchitis, not specified as acute or chronic (ICD-10) Pneumonia ?J18.9 - Pneumonia, unspecified organism (ICD-10) HTN (hypertension) ?I10 - Essential (primary) hypertension (ICD-10) Surgical History History of ankle surgery ?Z98.890 - Other specified postprocedural states (ICD-10) H/O shoulder surgery ?Z98.890 - Other specified postprocedural states (ICD-10) History of colon resection ?Z90.49 - Acquired absence of other specified parts of digestive tract (ICD- 10) Family History Mother Family history of cancer Family history of diabetes mellitus Family history of hypertension Father Family history of cancer Social History Smoking status: Former smoker Highest level of school completed/degree received: high school graduate Meds Home Medications and Allergies Home Medications Medication Instructions Recorded Confirmed Type lisinopril 20 mg tablet 20 mg PO DAILY 10/18/23 10/18/23 History Allergies Allergy/AdvReac Type Severity Reaction Status Date / Time aspirin Allergy Severe Verified 10/18/23 10:44 albuterol AdvReac Severe Palpitation Verified 10/18/23 10:44 s azithromycin [From Zithromax] AdvReac Severe Palpitation Verified 10/18/23 10:44 s Exam Constitutional Vital Signs, click to edit/add: Last Vital Signs Temp 98.2 F 10/19/23 15:00 Pulse 96 H 10/19/23 17:00 Resp 16 10/19/23 15:00 BP 117/71 10/19/23 15:00 Pulse Ox 96 10/19/23 15:00 O2 Del Method Room Air 10/19/23 15:00 Common normals: no apparent distress, oriented x3 and well nourished Nutritional appearance: obese Respiratory Common normals: normal respiratory effort, no retractions and no use of ac cessory muscles Auscultation: rales and diminished lung sounds (Diminished B/L posterior bases and fine rales) Cardio Common normals: no JVD (+ JVD), S1 normal heart sound and S2 normal heart sound; irregular rhythm Rate: regular rate Rhythm: abnormal rhythm Heart sounds: no gallops, no murmurs and no rubs Peripheral pulses: radial pulses present, posterior tibial pulses present and dorsalis pedis pulses present Extremity Common normals: full ROM and normal capillary refill General: edema (2-3+ BLE edema) Neuro Common normals: oriented x3, CN's II-XII intact bilaterally and moves all extremities Psych Common normals: mental status grossly normal, thought process normal, cooperative and affect normal Results Labs Labs: Short CBC 10/19/23 Range/Units 04:03 WBC 8.8 (4.0-11.0) 10^3/uL Hgb 14.2 (14.0-18.0) g/dL Hct 43.3 (42.0-54.0) % Plt Count 216 (150-450) 10^3/uL BMP 10/19/23 04:03 Sodium 143 Potassium 4.1 Chloride 106 Carbon Dioxide 27.3 BUN 23.0 H Creatinine 1.24 Glucose 110 H Calcium 8.7 Liver Function 10/19/23 Range/Units 04:03 Total Bilirubin 0.7 (0.2-1.0) mg/dL AST 19 (15-37) U/L ALT 24 (16-63) U/L Alkaline Phosphatase 49 (46-116) U/L Albumin 3.3 L (3.4-5.0) g/dL HS troponin level negative x4 Pro BNP 10/19/23 04:03 714.0 pg/mL <=900.0? 10/18/23 16:21 935.0?H pg/mL =900.0 Pulse Oximetry Attestation: I have reviewed the pertinent pulse oximetry results. Interpretation: stable on room air ECG Attestation: ?I have reviewed the pertinent ECG results. ECG interpretation date: 10/18/23 Interpretation: Interpretive Statements Supraventricular tachycardia, consider atrial flutter with variable AV block 2440 Incomplete right bundle branch block 9150 abnormal ECG Electronically Signed On 10-18-2023 20:18:47 EST by GRABIEL REYES Imaging Chest x-ray: Attestation: I have reviewed the pertinent imaging results. Radiologist's impression: EXAM: XR chest 1V HISTORY: . SOB . COMPARISON: 07/11/2013 TECHNIQUE: Single view of the chest FINDINGS: Heart and vascularity are unremarkable. Lungs are free of focal infiltrates. No acute bony abnormality is appreciated. Left costophrenic angle was excluded on today's exam. XR/XR chest 1V IMPRESSION: No acute heart or lung disease identified. TTE: Radiologist's impression: LEFT VENTRICLE: Mild dilatation. Mild concentric left ventricular hypertrophy. LV EF: Global left ventricular systolic function is severely decreased. Visual estimation of left ventricular ejection fraction is 15-20%. Global hypokinesis. DIASTOLIC: Not adequately assessed due to heart rhythm. ATRIAL SEPTUM: Inadequately visualized. LEFT ATRIUM: Moderate dilatation. RIGHT ATRIUM: Severe dilatation. RIGHT VENTRICLE: Moderate dilatation. Decreased right ventricular systolic function. TRICUSPID VALVE: Normal mobility and thickness. Moderate regurgitation. Moderate pulmonary hypertension. RVSP 49mmHg MITRAL VALVE: Mildly thickened with normal mobility. No evidence of mitral valve stenosis. There is no mitral annular calcification. Moderate mitral regurgitation. AORTIC VALVE: Normal trileaflet appearance. No visible sclerosis. Normal leaflet mobility. No evidence of aortic valve stenosis. Trivial aortic regurgitation. AORTIC ROOT: Normal diameter and appearance. PULMONIC VALVE: Normal thickness and mobility. No stenosis. Mild regurgitation. PERICARDIUM: Anterior free space; trivial effusion versus fat pad. IVC: Moderate dilatation. Measuring 2.9cm with no collapse. CONCLUSION: 1. Global left ventricular systolic function is severely reduced; visually estimated ejection fraction is 15 to 20% 2. The right ventricle is moderately dilated with reduced systolic function 3. Mildly increased left ventricular wall thickness 4. Biatrial enlargement 5. Moderate tricuspid regurgitation 6. Moderately elevated right ventricular systolic pressure; RVSP 49 mmHg 7. Moderate mitral regurgitation 8. Mild pulmonic regurgitation 9. Anterior free space; trivial effusion versus fat pad Venous US: Attestation: I have reviewed the pertinent imaging results. Radiologist's impression: FINDINGS: Right lower extremity: The visualized vessels comprising the deep venous systems from the common femoral vein through the calf veins demonstrate appropriate compressibility, spontaneous color Doppler flow, and augmentation of flow on spectral Doppler with distal compression. Left lower extremity: The visualized vessels comprising the deep venous systems from the common femoral vein through the calf veins demonstrate appropriate compressibility, spontaneous color Doppler flow, and augmentation of flow on spectral Doppler with distal compression. Additional findings: Bilateral lower extremity edema is present. Noncompressible left great saphenous vein, representing thrombophlebitis. US/US venous doppler LE IMPRESSION: No sonographic evidence of deep venous thrombosis of the bilateral lower extremities. Noncompressible left great saphenous vein, representing thrombophlebitis. Electronically authenticated by: FAITH AMATO Date: 10/18/2023 13:36 CT scan - chest: Attestation: I have reviewed the pertinent imaging results. Radiologist's impression: Chest wall: Within normal limits. Earline/mediastinum/esophagus: No mass. Thoracic lymph nodes: Benign granulomatous calcifications are present within the intrathoracic lymph nodes. Heart and vasculature: -No pulmonary artery filling defect to suggest pulmonary embolism. -Moderate cardiomegaly and mild dilation of the right and left main pulmonary arteries. -No pericardial effusion or aortic aneurysm. Visualized portions of the upper abdomen: Within normal limits. Musculoskeletal: No acute abnormality or suspicious osseous lesion. Lungs/airways: -There are 2 benign calcified granulomas present. -Mild bilateral dependent subpleural scarring and/or atelectasis. -Mild centrilobular emphysema. -No significant nodule or infiltrate. -The central airways are patent. Pleura: No pleural effusion or pneumothorax. CT/CT angio chest IMPRESSION: Negative exam. No pulmonary embolism or any acute cardiopulmonary abnormality demonstrated. Assessment and Plan Assessment and Plan (1) Atrial flutter with rapid ventricular response: Assessment and Plan: [id number]= 2- CHF and HTN Remains on heparin infusion anticoagulation- can transition to DOAC after cardiac cath at [facility] pending transfer Rate controlled on cardizem and metoprolol- in light of reduced EF most likely tachycardia mediated will leave pt on these and further GDMT optimization at [facility] Informed Dr Mendiola and D/W Dr Berg and plan for Rt LT CORS cardiac cath and possible a flutter ablation vs JOSELO/CV at [facility]. (2) Acute on chronic systolic heart failure, NYHA class 3: Assessment and Plan: Will need further GDMT optimization and Rate/rhythm control Will continue metoprolol tartrate and cardizem for now can transition to Toprol or Coreg post CV/Ablation and can then DC cardizem, start lasix 40 mg IV bid, potassium Ch 20 meq daily and aldactone Monitor renal function, electrolytes, I&O, daily weights, fluid restriction Low sodium- heart healthy diet. Maintain K+ > 4 and MAG > 2 Planning transfer to [facility] for Cardiac cath and A flutter management with Ablation VS Cardioversion. (3) Benign hypertensive heart disease with heart failure: Assessment and Plan: HTn currently well controlled continue all meds (4) Former cigarette smoker: Assessment and Plan: continue smoking cessation (5) Morbid obesity due to excess calories: Assessment and Plan: recommend weight loss Plan as above
[2023-10-19] MEDS: POTASSIUM CHLORIDE 10 MEQ ER TABLET 20 MEQ PO (20:01)
[2023-10-19] MEDS: FUROSEMIDE 40 MG/4 ML VIAL IVP (20:01)
[2023-10-19] MEDS: HYDROCODONE/ACET 5-325 MG TABLET 1 TAB PO (20:09)
[2023-10-19 22:26] LABS: PTT Heparin Monitor 32.5 sec (48.2-68.6)
[2023-10-19 23:40] LABS: Bilirubin Urine NEGATIVE (NEGATIVE); Blood Urine NEGATIVE (NEGATIVE); Clarity Urine CLEAR (CLEAR); Color Urine LT. YELLOW (YELLOW); Glucose Urine UA NEGATIVE (NEGATIVE); Ketones Urine NEGATIVE (NEGATIVE); Leukocyte Esterase Urine NEGATIVE (NEGATIVE); Nitrite Urine NEGATIVE (NEGATIVE); Protein Urine NEGATIVE (NEG/TRACE); Urobilinogen Urine 0.2 EU/dL (0.2-1.0)
[2023-10-19 23:43] LABS: Urine Microscopic Indicated NO
[2023-10-20] VITALS (45 sets, daily range): BP systolic 113–144; BP diastolic 75–102; PULSE 52–129; RESP 12–20; TEMP 36.4–37; O2SAT 92–97
[2023-10-20 04:34] LABS: Basophils Percent Auto 0.4 % (0.2-2.0); Eosinophils Absolute Auto 0.2 10^3/uL (0.0-0.7); Hemoglobin 14.4 g/dL (14.0-18.0); Immature Granulocytes Abs Auto 0.02 10^3/uL (0.00-0.03); Immature Granulocytes Pct Auto 0.3 % (0.0-0.5); Lymphocytes Absolute Auto 2.5 10^3/uL (1.2-3.8); Lymphocytes Percent Auto 33.8 % (20.5-60.0); Mean Corpuscular HGB Conc 33.5 g/dL (29.9-35.2); Mean Corpuscular Hemoglobin 30.8 pg (25.9-34.0); Mean Corpuscular Volume 92.1 fL (80.0-94.0); Mean Platelet Volume 9.8 fL (9.5-13.5); Monocytes Absolute Auto 0.9 10^3/uL (0.3-0.8); Monocytes Percent Auto 12.1 % (1.7-12.0); Neutrophils Absolute Auto 3.7 10^3/uL (1.4-6.5); Neutrophils Percent Auto 50.4 % (43.0-75.0); Platelet Count 217 10^3/uL (150-450); Red Blood Count 4.67 10^6/uL (4.70-6.10); Red Cell Distribution Width 12.9 % (11.0-15.0); White Blood Count 7.3 10^3/uL (4.0-11.0)
[2023-10-20 05:04] LABS: Alanine Aminotransferase 26 U/L (16-63); Albumin Globulin Ratio 1.1; Albumin Level 3.3 g/dL (3.4-5.0); Alkaline Phosphatase 49 U/L (46-116); Anion Gap 13.3; Aspartate Amino Transferase 21 U/L (15-37); BUN Creatinine Ratio 15.6; Bilirubin Total 0.8 mg/dL (0.2-1.0); Calcium 8.7 mg/dL (8.5-10.1); Carbon Dioxide 28.7 mmol/L (21.0-32.0); Chloride 106 mmol/L (98-107); Estimated GFR (African America >60 (>=60); Estimated GFR (Non-African Ame 53 (>=60); Globulin 3.1 g/dL; Glucose 112 mg/dL (74-106); Sodium 144 mmol/L (136-145); Total Protein 6.4 g/dL (6.4-8.2)
[2023-10-20 05:18] LABS: Troponin I High Sensitivity 43.2 pg/mL (4.0-76.1)
[2023-10-20 05:32] LABS: PTT Heparin Monitor 35.1 sec (48.2-68.6)
[2023-10-20] MEDS: FUROSEMIDE 40 MG/4 ML VIAL IVP ×2 (05:57→19:37)
[2023-10-20] MEDS: HEPARIN SODIUM,PORCINE/D5W 25,000 UNIT/500 ML IV.SOLN 28 UNIT IV (05:57)
[2023-10-20] MEDS: DILTIAZEM HCL 120 MG CAP.ER.24H PO (09:37)
[2023-10-20] MEDS: METOPROLOL TARTRATE 25 MG TABLET PO ×2 (09:38→21:14)
[2023-10-20] MEDS: SPIRONOLACTONE 25 MG TABLET PO (09:38)
[2023-10-20] MEDS: MAGNESIUM OXIDE 400 MG TABLET PO (09:38)
[2023-10-20 10:14] LABS: PTT Heparin Monitor 35.8 sec (48.2-68.6)
--- NOTE | 2023-10-20 11:42 | CM.NOTE ---
Rounds made with Dr. Rockwell. Awaiting transfer to a Tertiary Facility.
[2023-10-20 15:52] LABS: PTT Heparin Monitor 35.5 sec (48.2-68.6)
--- NOTE | 2023-10-20 21:11 | PM.DS1 ---
DS: Providers Provider Date of admission: 10/18/23 19:55 Primary care physician: SHAQUILLE WHITTEN Consults: 10/18/23 16:01 Consult to Cardiology Routine Reason for consultation: recurrent a-flutter - a fib Has provider been notified: No DS: Diagnosis Discharge Diagnosis (1) Atrial flutter with rapid ventricular response: (2) Acute on chronic systolic heart failure, NYHA class 3: (3) Benign hypertensive heart disease with heart failure: (4) Former cigarette smoker: (5) Obesity (BMI 30-39.9): DS: Summary Hospital Course Hospital Course: Reason for admission: See ER note and H&P for details. 63 y/o male to ER with SOB. C/o SOB for several days and pain and swelling in left calf. SOB worsened and to ER. Noted tachycardia and EKG showed rapid atrial flutter. CTA chest negative. Given IV cardizem then started drip and admitted. Hospital course: Continued cardizem drip. Cardiology consulted. Added metoprolol and weaned drip. US leg negative for DVT. Echo showed EF 15-20%. Cardiology recommended transfer to [facility] for heart cath. Started heparin drip. Started IV lasix and edema improved. Patient stable in hospital. Bed available and transferred to [facility] in stable condition. Time Spent with Patient Time attestation: Total time spent providing and/or coordinating discharge services: Exam Constitutional Vital Signs, click to edit/add: Last Vital Signs Temp 98.6 F 10/20/23 16:00 Pulse 102 H 10/20/23 18:00 Resp 18 10/20/23 16:00 BP 113/89 10/20/23 12:14 Pulse Ox 96 10/20/23 11:48 O2 Del Method Room Air 10/20/23 07:09 Documenting provider has reviewed patient's vital signs: yes Common normals: no apparent distress, oriented x3 and alert HENMT Common normals: normocephalic Eye Common normals: PERRL and EOMs intact bilaterally Respiratory Common normals: normal respiratory effort and clear to auscultation bilaterally Cardio Common normals: regular rate, no gallops, no murmurs and no rub Rhythm: abnormal rhythm irregularly irregular GI Common normals: Normal to inspection, nondistended, normoactive bowel sounds present and non-tender Extremity General: edema (1+ pitting bipedal edema) DS: Data Data Completed and Pending Labs on day of discharge: Labs from last 24 hours 10/20/23 10/20/23 10/20/23 15:12 09:25 03:37 WBC 7.3 RBC 4.67 L Hgb 14.4 Hct 43.0 MCV 92.1 MCH 30.8 MCHC 33.5 RDW 12.9 Plt Count 217 MPV 9.8 Neut % (Auto) 50.4 Lymph % (Auto) 33.8 Maverick % (Auto) 12.1 H Eos % (Auto) 3.0 Baso % (Auto) 0.4 Neut # (Auto) 3.7 Lymph # (Auto) 2.5 Maverick # (Auto) 0.9 H Eos # (Auto) 0.2 Baso # (Auto) 0.0 Abs Immat Gran (auto) 0.02 Imm/Tot Granulo (auto) 0.3 PTT (Heparin Absorb) 35.5 L* 35.8 L* 35.1 L* Sodium 144 Potassium 4.0 Chloride 106 Carbon Dioxide 28.7 Anion Gap 13.3 BUN 21.0 H Creatinine 1.35 H Est GFR ( Amer) >60 Est GFR (Non-Af Amer) 53 L BUN/Creatinine Ratio 15.6 Glucose 112 H Calcium 8.7 Total Bilirubin 0.8 AST 21 ALT 26 Alkaline Phosphatase 49 Troponin I High Sens 43.2 NT-Pro-B Natriuret Pep 614.0 Total Protein 6.4 Albumin 3.3 L Globulin 3.1 Albumin/Globulin Ratio 1.1 Urine Color Urine Clarity Urine pH Ur Specific [place] Urine Protein Urine Glucose (UA) Urine Ketones Urine Occult Blood Urine Nitrite Urine Bilirubin Urine Urobilinogen Ur Leukocyte Esterase 10/19/23 10/19/23 23:30 21:52 WBC RBC Hgb Hct MCV MCH MCHC RDW Plt Count MPV Neut % (Auto) Lymph % (Auto) Maverick % (Auto) Eos % (Auto) Baso % (Auto) Neut # (Auto) Lymph # (Auto) [place] # (Auto) Eos # (Auto) Baso # (Auto) Abs Immat Gran (auto) Imm/Tot Granulo (auto) PTT (Heparin Absorb) 32.5 L* Sodium Potassium Chloride Carbon Dioxide Anion Gap BUN Creatinine Est GFR ( Amer) Est GFR (Non-Af Amer) BUN/Creatinine Ratio Glucose Calcium Total Bilirubin AST ALT Alkaline Phosphatase Troponin I High Sens NT-Pro-B Natriuret Pep Total Protein Albumin Globulin Albumin/Globulin Ratio Urine Color Lt. yellow Urine Clarity Clear Urine pH 6.0 Ur Specific [place] 1.010 Urine Protein Negative Urine Glucose (UA) Negative Urine Ketones Negative Urine Occult Blood Negative Urine Nitrite Negative Urine Bilirubin Negative Urine Urobilinogen 0.2 Ur Leukocyte Esterase Negative Discharge Plan Discharge Disposition: Xfer Acute Care Hospital Condition: Good
[2023-10-20] MEDS: POTASSIUM CHLORIDE 10 MEQ ER TABLET 20 MEQ PO (21:14)
[2023-10-20] MEDS: HEPARIN SODIUM,PORCINE/D5W 25,000 UNIT/500 ML IV.SOLN 32 UNIT IV (21:27)
--- NOTE | 2023-10-20 22:24 | PC.NURSE ---
Patient transferred to [facility] via [facility]. Heparin Drip infusing at 1600 Units/hour or 32 ml/hour per [facility] equipment prior to [facility] assuming care of drip and converting to their equipment/pump. Heparin Drip maintained infusing per pump and equipment of Transfer Team. Report Called to [facility] at phone [phone] To VIPUL EVANS. Patient Room number is [id number].
== END 2023-10-20 22:10 | disposition short-term general hospital (02) ==
LOC: ER 16:29 → ICU 10-19 06:54
PROVIDERS: Family Medicine; Admitting Provider Family Medicine; Emergency Provider Emergency Medicine; Visit Provider Family Medicine
DX: I48.92 Unspecified atrial flutter (principal); I11.0 Hypertensive heart disease with heart failure; I50.23 Acute on chronic systolic (congestive) heart failure; R06.03 Acute respiratory distress; R79.89 Other specified abnormal findings of blood chemistry; E80.6 Other disorders of bilirubin metabolism; E66.9 Obesity, unspecified; Z68.36 Body mass index [BMI] 36.0-36.9, adult; Z87.891 Personal history of nicotine dependence; Z79.899 Other long term (current) drug therapy; I83.93 Asymptomatic varicose veins of bilateral lower extremities; Z87.01 Personal history of pneumonia (recurrent); Z90.49 Acquired absence of other specified parts of digestive tract; Z98.890 Other specified postprocedural states; Z20.822 Contact with and (suspected) exposure to COVID-19
CPT/HCPCS: 36415; 71045; 71275; 80048; 80053; 80076; 81003; 83605; 83735; 83880; 84436; 84443; 84481; 84484; 85025; 85730; 87804; 87811; 93005; 93306; 93356; 93970; 94761; 96365; 96366; 96367; 96375; 96376; 99285; G0378; J0360; J1644; J1940; Q9967

== ENCOUNTER 2023-10-27 14:00 | Outpatient (OUT) | payer BC, SELFPAY ==
--- OUTSIDE RECORDS SUMMARY | 2023-10-27 14:11 | XMS_ITS | CCD ---
Author Name Unknown Address [address] [place] [address] Organization [facility] Care Team Providers Care Intranet Support Name Role Phone SHAQUILLE WHITTEN Admitting Unavailable SHAQUILLE WHITTEN Attending Unavailable SHAQUILLE WHITTEN Primary Care Unavailable SHAQUILLE WHITTEN Consulting Unavailable Bret Shaquille Unavailable Allie Gould Unavailable DO Shaquille Whitten Primary Care Provider SAMANTHA Kim Attending Provider DO Shaquille Whitten Attending Provider [phone] Babs Kim Admitting Unavailable Babs Kim Attending Unavailable Shaquille Whitten N Primary Care Unavailable Shaquille Whitten N Admitting Unavailable Shaquille Whitten Attending Unavailable Shaquille Whitten N Primary Care Unavailable DELMY, HANI Referring Unavailable DELMY, HANI Referring Unavailable LUZ, SOCORRO Referring Unavailable MILADY, ANTONIO Admitting Unavailable HORANI, GALDINO Attending Unavailable DELMY, HANI Referring Unavailable Allergies Allergy Classification Reported Allergen(s) Allergy Type Date of Onset Reaction(s) Facility (4 sources) Albuterol; Translations: [ALBUTEROL] Drug Allergy 10-24-19 [facility] Repository (3 sources) Aspirin Drug Allergy Unknown [facility] Other (3 sources) Azithromycin Drug Allergy heart [facility] Other (3 sources) DAIRY Propensity to adverse reactions DIARRHEA [facility] Other (1 source) Lactose; Translations: [LACTOSE] Drug Allergy 10-24-19 [facility] Repository (1 source) Salicylic Acid; Translations: [SALICYLIC ACID] Drug Allergy 10-24-19 [facility] Repository (1 source) ALLERGIES NOT ON FILE; Translations: [ALLERGIES NOT ON FILE] Propensity to adverse reactions (disorder) [facility] Repository Medications Current Medications Medication Drug Class(es) Dates Sig (Normalized) Sig (Original) 5-HTP 200 MG (3 sources) 5-HTP 200 MG as directed Orally Active Ashwagandha (3 sources) Ashwagandha 5200 mg Active cholecalciferol 0.25 mg oral capsule (1 source) Vitamin D Vitamin D3 250 MCG (10334 UT) as directed Orally Active clindamycin 300 mg oral capsule (2 sources) Lincosamide Antibacterial Start: 02-21-2023 take 1 capsule by mouth every eight hours Clindamycin HCl 300 MG 1 cap(s) Orally tid for 10 day(s) Feb, Active L-Arginine (3 sources) L-Arginine Active Magnesium glycinate (3 sources) Magnesium Glycinate Active Bristow 3 1000 MG (3 sources) take 1 capsule by mouth once daily Bristow 3 1000 MG 1 capsule Orally Once a day Active Turmeric Curcumin 500 MG (3 sources) take 3 tablets by mouth once daily Turmeric Curcumin 500 MG 3 tab Orally DAILY Active Vitamin D3 250 MCG (42516 UT) (2 sources) Vitamin D3 250 MCG (77861 UT) as directed Orally Active Vitamin K2 100 MCG (3 sources) Vitamin K2 100 MCG as directed Orally Active Completed/Discontinued Medications Medication Drug Class(es) Dates Sig (Normalized) Sig (Original) Soddy-Daisy Bergamot (3 sources) Soddy-Daisy Bergamot 1000 mg Not-Taking Soddy-Daisy Bergamot 1000 mg Active lisinopril 20 mg oral tablet (3 sources) Angiotensin Converting Enzyme Inhibitor Start: 11-23-2017 take 1 tablet by mouth every twenty-four hours Lisinopril 20 MG 1 tablet Orally Once a day for 90 day(s) PRN Nov, Not-Taking Testosterone (3 sources) Androgen Testosterone OTC Not-Taking Testosterone OTC Active Problems Active Problems Problem Classification Problem Date Documented Da te Episodic/Chronic Cardiac dysrhythmias (4 sources) Unspecified atrial fibrillation; Translations: [Typical atrial flutter] Onset: 10-21-2023 Chronic Chronic ulcer of skin (3 sources) Non-pressure chronic ulcer of other part of left foot limited to breakdown of skin; Translations: [Ulcer of left foot, limited to breakdown of skin] Chronic Congestive heart failure; nonhypertensive (4 sources) Acute on chronic systolic (congestive) heart failure; Translations: [Chronic systolic (congestive) heart failure] Onset: 10-21-2023 Chronic Diabetes mellitus without complication (1 source) [...] Test Name Value Interpretation Reference Range Facility 30on 10-25-2023 30 The patient is Moderately Stable - Low risk of patient condition declining or worsening The patient's goals for the shift include Comfort The clinical goals for the shift include VSS, safety Problem: Pain - Adult Goal: Verbalizes/displays adequate comfort level or baseline comfort level Outcome: Progressing Flowsheets (Taken 10/25/2023 0715) Verbalizes/displays adequate comfort level or baseline comfort level: Encourage patient to monitor pain and request assistance Problem: Discharge Planning Goal: Discharge to home or other facility with appropriate resources Outcome: Progressing Problem: Chronic Conditions and Co-morbidities Goal: Patient's chronic conditions and co-morbidity symptoms are monitored and maintained or improved Outcome: Progressing Normal [facility] 30 The patient is Moderately Stable - Low risk of patient condition declining or worsening The patient's goals for the shift include comfort/rest The clinical goals for the shift include vss Problem: Pain - Adult Goal: Verbalizes/displays adequate comfort level or baseline comfort level Outcome: Progressing Problem: Safety - Adult Goal: Free from fall injury Outcome: Progressing Flowsheets (Taken 10/24/2023 2300) Free from fall injury: Assess patient frequently for physical needs Identify cognitive and physical deficits and behaviors that affect risk of falls Maple fall precautions as indicated by assessment Educate patient/family on patient safety, including physical limitations Instruct patient to call for assistance with activity based on assessment Modify environment to reduce risk of injury Consider OT/PT consult to assist with strengthening/mobilit y Problem: Discharge Planning Goal: Discharge to home or other facility with appropriate resources Outcome: Progressing Flowsheets (Taken 10/24/2023 2300) Discharge to home or other facility with appropriate resources: Identify barriers to discharge with patient and caregiver Arrange for needed discharge resources and transportation as appropriate Identify discharge learning needs (meds, wound care, etc) Refer to discharge planning if patient needs post-hospital services based on physician order or complex needs related to functional status, cognitive ability or social support system Problem: Chronic Conditions and Co-morbidities Goal: Patient's chronic conditions and co-morbidity symptoms are monitored and maintained or improved Outcome: Progressing Flowsheets (Taken 10/24/2023 2300) Care Plan - Patient's Chronic Conditions and Co-Morbidity Symptoms are Monitored and Maintained or Improved: Monitor and assess patient's chronic conditions and comorbid symptoms for stability, deterioration, or improvement Collaborate with multidisciplinary team to address chronic and comorbid conditions and prevent exacerbation or deterioration Update acute care plan with appropriate goals if chronic or comorbid symptoms are exacerbated and prevent overall improvement and discharge Normal [facility] BASIC METABOLIC PANELon 02-2 Anion gap [Moles/Vol] 13 mmol/L Normal 7-20 [facility] Comment on above: Performed By: #### L [id number] #### [facility] [address] [place] [address] Calcium [Mass/Vol] 8.9 mg/dL Normal 8.6-10.3 [facility] Comment on above: Performed By: #### L [id number] #### [facility] (BEAK[facility]) [address] [place] [address] Chloride [Moles/Vol] 97 mmol/L Low 98-107 [facility] Comment on above: Performed By: #### L [id number] #### [facility] (BEAKER) [address] [place] [address] CO2 [Moles/Vol] 29 mmol/L Normal 21-31 [facility] Comment on above: Performed By: #### L [id number] #### [facility] ([facility]) [address] [place] [address] Creatinine [Mass/Vol] 1.48 mg/dL High 0.70-1.30 [facility] Comment on above: Performed By: #### L [id number] #### [facility] [address] [place] [address] GLOMERULAR FILTRATION RATE ML/MIN/1.73 SQ M.PREDICTED 52.8 mL/min/1.73m*2 Low >60.0 [facility] Comment on above: Result Comment: The [facility]???s estimated glomerular filtration rate (eGFR) will no longer include consideration of race in its calculation. The National Kidney Foundation???s eGFR Task Force developed new recommendations for the estimation of the glomerular filtration rate in the [place] They recommend immediate implementation of the new equation refit without the race variable in all laboratories because the calculation does not include race. In addition to not including race in the calculation and reporting, it included diversity in its development, and has acceptable performance characteristics and potential consequences that do not disproportionately affect any one group of individuals. Performed By: #### L [id number] #### [facility] ([facility]) [address] [place] [address] Glucose [Mass/Vol] 117 mg/dL High 70-100 [facility] Comment on above: Performed By: #### L [id number] #### [facility] ([facility]) [address] [place] [address] Potassium [Moles/Vol] 4.0 mmol/L Normal 3.5-5.1 [facility] Comment on above: Performed By: #### L [id number] #### [facility] ([facility]) [address] [place] [address] Sodium [Moles/Vol] 135 mmol/L Low 136-145 [facility] Comment on above: Performed By: #### L [id number] #### [facility] ([facility]) [address] [place] [address] Urea nitrogen [Mass/Vol] 29 mg/dL High 7-25 [facility] Comment on above: Performed By: #### L [id number] #### [facility] ([facility]) [address] [place] [address] UREA NITROGEN/CREATININE (MASS RATIO) IN SER/PLAS 19.6 Normal [facility] Comment on above: Performed By: #### L [id number] #### [facility] ([facility]) [address] [place] [address] CBCon 10-25-2023 Erythrocyte distribution width (RBC) [Ratio] 12.7 % Normal 11.5-15.0 [facility] Comment on above: Performed By: #### L [id number] #### [facility] [address] [place] [address] ERYTHROCYTE MEAN CORPUSCULAR HEMOGLOBIN CONCENTRATION (G/DL) BY AUTOMATED 34.1 g/dL Normal 32.0-35.0 [facility] Comment on above: Performed By: #### L [id number] #### [facility] ([facility]) [address] [place] [address] Hematocrit (Bld) [Volume fraction] 49.3 % Normal 39.0-55.0 [facility] Comment on above: Performed By: #### L [id number] #### [facility] ([facility]) [address] [place] [address] Hemoglobin (Bld) [Mass/Vol] 16.8 g/dL Normal 13.0-17.0 [facility] Comment on above: Performed By: #### L [id number] #### [facility] ([facility]) [address] [place] [address] MCH (RBC) [Entitic mass] 30.8 pg Normal 27.0-33.0 [facility] Comment on above: Performed By: #### L [id number] #### [facility] ([facility]) [address] [place] [address] MCV (RBC) [Entitic vol] 90.5 fL Normal 82.0-98.0 [facility] Comment on above: Performed By: #### L [id number] #### [facility] ([facility]) [address] [place] [address] PLATELETS (10*3/UL) IN BLOOD AUTOMATED COUNT 259 10*3/uL Normal 150-400 [facility] Comment on above: Performed By: #### L [id number] #### [facility] [address] [place] [address] RBC (Bld) [#/Vol] 5.45 10*6/uL Normal 4.20-5.70 [facility] Comment on above: Performed By: #### L [id number] #### [facility] (BEAKER) [address] [place] [address] WBC (Bld) [#/Vol] 9.33 10*3/uL Normal 4.00-10.60 [facility] Comment on above: Performed By: #### L [id number] #### [facility] (AKER) [address] [place] [address] 30on 10-24-2023 30 The patient is Moderately Stable - Low risk of patient condition declining or worsening The patient's goals for the shift include heart cath The clinical goals for the shift include VSS, safety Problem: Pain - Adult Goal: Verbalizes/displays adequate comfort level or baseline comfort level Outcome: Progressing Flowsheets (Taken 10/24/2023 0725) Verbalizes/displays adequate comfort level or baseline comfort level: Encourage patient to monitor pain and request assistance Problem: Safety - Adult Goal: Free from fall injury Outcome: Progressing Flowsheets (Taken 10/24/2023 0803) Free from fall injury: Assess patient frequently for physical needs [facility] 30 Daily Case Managemen t Update Multidisciplinary rounds have been completed. Barriers to Discharge: Pending clinical course and improvement in clinical condition. Pending catheterization and ablation planned for today. Diet: Dietary Orders (From admission, onward) Start Ordered 10/24/23 0001 Diet NPO Diet effective midnight Comments: Sips with medications Question: Reason for NPO: Answer: Operation/Procedure 10/23/23 0932 Physician Expected Discharge Date: Discharge Delays: PT Six Click Score: 24 OT Six Click Score: PT Recommendations: OT Recommendations: New Consults: Normal [facility] 30 The patient is Moderately Stable - Low risk of patient condition declining or worsening The patient's goals for the shift include NPO for heart cath The clinical goals for the shift include vss Problem: Pain - Adult Goal: Verbalizes/displays adequate comfort level or baseline comfort level Outcome: Progressing Problem: Safety - Adult Goal: Free from fall injury Outcome: Progressing Flowsheets (Taken 10/24/2023 0000) Free from fall injury: Assess patient frequently for physical needs Identify cognitive and physical deficits and behaviors that affect risk of falls Maple fall precautions as indicated by assessment Educate patient/family on patient safety, including physical limitations Instruct patient to call for assistance with activity based on assessment Modify environment to reduce risk of injury Consider OT/PT consult to assist with strengthening/mobilit y Problem: Discharge Planning Goal: Discharge to home or other facility with appropriate resources Outcome: Progressing Flowsheets (Taken 10/24/20239) Discharge to home or other facility with appropriate resources: Identify barriers to discharge with patient and caregiver Arrange for needed discharge resources and transportation as appropriate Identify discharge learning needs (meds, wound care, etc) Refer to discharge planning if patient needs post-hospital services based on physician order or complex needs related to functional status, cognitive ability or social support system Problem: Chronic Conditions and Co-morbidities Goal: Patient's chronic conditions and co-morbidity symptoms are monitored and maintained or improved Outcome: Progressing Flowsheets (Taken 10/24/20239) Care Plan - Patient's Chronic Conditions and Co-Morbidity Symptoms are Monitored and Maintained or Improved: Monitor and assess patient's chronic conditions and comorbid symptoms for stability, deterioration, or improvement Collaborate with multidisciplinary team to address chronic and comorbid conditions and prevent exacerbation or deterioration Update acute care plan with appropriate goals if chronic or comorbid symptoms are exacerbated and prevent overall improvement and discharge Normal [facility] Sincere 10-24-2023 ANES - Attestation signed by Hernandez Mendiola MD at 10/26/2023 8:59 AM By using the attestations below, the signing clinician agrees that I have read and verify that the documentation has been personally reviewed by me and ensure that the documentation accurately reflects the encounter. GC: I personally saw this patient on the day of the encounter, performed the yanez portion(s) of the service and participated in the management and confirm the resident's documentation. Please note there may be an additional personal documentation from me. 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 Use of blood products discussed with patient who consented to blood products. Plan discussed with attending. Additional Equipment Requests Normal [facility] ANTI-XA (HEPARIN LEVEL)on HEPARIN UNFRACTIONATED (U/ML) IN PPP BY CHROMOGENIC METHOD <0.10 Invalid Interpretation Code 0.3-0.7 [facility] Comment on above: Result Comment: Bernie roxaban and Apixaban will interfere with the anti Xa assay used to monitor UFH and LMWH. Performed By: #### L [id number] #### [facility] (BEAKER) [address] [place] [address] HEPARIN UNFRACTIONATED (U/ML) IN PPP BY CHROMOGENIC METHOD 0.28 IU/mL Low 0.3-0.7 [facility] Comment on above: Result Comment: Bernie roxaban and Apixaban will interfere with the anti Xa assay used to monitor UFH and LMWH. Performed By: #### L [id number] #### [facility] (BEAKER) [address] [place] [address] BASIC METABOLIC PANELon 10-06 Anion gap [Moles/Vol] 10 mmol/L Normal 7-20 [facility] Comment on above: Performed By: #### L [id number] ####[facility] (BEAKER)[address] [place] [address] Calcium [Mass/Vol] 9.1 mg/dL Normal 8.6-10.3 [facility] Comment on above: Performed By: #### L [id number] ####[facility] ([facility]ER)[address] [place] [address] Chloride [Moles/Vol] 100 mmol/L Normal 98-107 [facility] Comment on above: Performed By: #### L [id number] ####[facility] (BEAKER)[address] [place] [address] CO2 [Moles/Vol] 29 mmol/L Normal 21-31 [facility] Comment on above: Performed By: #### L [id number] ####[facility] (BEAKER)[address] [place] [address] Creatinine [Mass/Vol] 1.24 mg/dL Normal 0.70-1.30 [facility] Comment on above: Performed By: #### L [id number] ####[facility] ([facility])[address] [place] [address] GLOMERULAR FILTRATION RATE ML/MIN/1.73 SQ M.PREDICTED 65.3 mL/min/1.73m*2 Normal >60.0 [facility] Comment on above: Result Comment: The [facility]???s estimated glomerular filtration rate (eGFR) will no longer include consideration of race in its calculation. The National Kidney Foundation???s eGFR Task Force developed new recommendations for the estimation of the glomerular filtration rate in the [place] They recommend immediate implementation of the new equation refit without the race variable in all laboratories because the calculation does not include race. In addition to not including race in the calculation and reporting, it included diversity in its development, and has acceptable performance characteristics and potential consequences that do not disproportionately affect any one group of individuals. Performed By: #### L [id number] ####[facility] (BEAKER)[address] [place] [address] Glucose [Mass/Vol] 98 mg/dL Normal 70-100 [facility] Comment on above: Performed By: #### L [id number] ####[facility] (BEAKER)[address] [place] [address] Potassium [Moles/Vol] 4.0 mmol/L Normal 3.5-5.1 [facility] Comment on above: Performed By: #### L [id number] ####[facility] [place] [address] Sodium [Moles/Vol] 135 mmol/L Low 136-145 [facility] Comment on above: Performed By: #### L [id number] ####[facility] [place] [address] Urea nitrogen [Mass/Vol] 24 mg/dL Normal 7-25 [facility] Comment on above: Performed By: #### L [id number] ####[facility] [place] [address] UREA NITROGEN/CREATININE (MASS RATIO) IN SER/PLAS 19.4 Normal [facility] Comment on above: Performed By: #### L [id number] ####[facility] [place] [address] CBCon 10-24-2023 Erythrocyte distribution width (RBC) [Ratio] 12.6 % Normal 11.5-15.0 [facility] Comment on above: Performed By: #### L [id number] #### [facility] [address] [place] [address] ERYTHROCYTE MEAN CORPUSCULAR HEMOGLOBIN CONCENTRATION (G/DL) BY AUTOMATED 34.4 g/dL Normal 32.0-35.0 [facility] Comment on above: Performed By: #### L [id number] #### [facility] [address] [place] [address] Hematocrit (Bld) [Volume fraction] 49.1 % Normal 39.0-55.0 [facility] Comment on above: Performed By: #### L [id number] #### [facility] (BEAKER) [address] [place] [address] Hemoglobin (Bld) [Mass/Vol] 16.9 g/dL Normal 13.0-17.0 [facility] Comment on above: Performed By: #### L [id number] #### [facility] [address] [place] [address] MCH (RBC) [Entitic mass] 30.6 pg Normal 27.0-33.0 [facility] Comment on above: Performed By: #### L [id number] #### [facility] [address] [place] [address] MCV (RBC) [Entitic vol] 88.9 fL Normal 82.0-98.0 [facility] Comment on above: Performed By: #### L [id number] #### [facility] ([facility]) [address] [place] [address] PLATELETS (10*3/UL) IN BLOOD AUTOMATED COUNT 263 10*3/uL Normal 150-400 [facility] Comment on above: Performed By: #### L [id number] #### [facility] ([facility]) [address] [place] [address] RBC (Bld) [#/Vol] 5.52 10*6/uL Normal 4.20-5.70 [facility] Comment on above: Performed By: #### L [id number] #### [facility] ([facility]) [address] [place] [address] WBC (Bld) [#/Vol] 8.44 10*3/uL Normal 4.00-10.60 [facility] Comment on above: Performed By: #### L [id number] #### [facility] ([facility]) [address] [place] [address] HPon 10-24-2023 HP - Attestation signed by Hernandez Mendiola MD at 10/26/2023 8:59 AM By using the attestations below, the signing clinician agrees that I have read and verify that the documentation has been personally reviewed by me and ensure that the documentation accurately reflects the encounter. GC: I personally saw this patient on the day of the encounter, performed the yanez portion(s) of the service and participated in the management and confirm the resident's documentation. Please note there may be an additional personal documentation from me. Cardiology Consult Note HPI: Ranjit Perrin is a 63 y.o. male was transferred from [facility], the patient presented there with shortness of breath, and palpitation he said he started feeling episodes of palpitation for the last 2 weeks prior to his admission, he was being treated as pneumonia, he was found to have atrial flutter, evaluation there showed elevated BNP at 700, echo was done showed drop in ejection fraction to 10 to 15%, he has known normal baseline EF, the patient was transferred to our hospital for further evaluation. patient denies exertional chest pain, denies orthopnea, denies PND's denies lower extremity swelling. Cardiology ROS: GENERAL: Denies fever, chills, night sweats, weight loss. CARDIOVASCULAR: mentioned RESPIRATORY: Denies SOB, coughing, wheezing GI: Denies abdominal pain, nausea/vomiting. PSYCH: Denies anxiety. Past Medical History He has no past medical history on file. Surgical History He has no past surgical history on file. Social History He reports that he quit smoking about 15 years ago. His smoking use included cigarettes. He has never used smokeless tobacco. No history on file for alcohol use and drug use. Family History No family history on file. Allergies Patient has no allergy information on record. Medications Medications Prior to Admission Medication Sig Dispense Refill Last Dose lisinopril 20 mg tablet Take 20 mg by mouth in the morning. Last Recorded Vitals Patient Vitals for the past 24 hrs: BP Temp Temp src Pulse Resp SpO2 Weight 10/24/23 1115 118/84 36.5 ???C (97.7 ???F) Temporal (!) 111 19 96 % -- 10/24/23 0912 123/84 -- -- 103 -- -- -- 10/24/23 0725 105/78 36.6 ???C (97.8 ???F) Temporal 107 24 97 % -- 10/24/23 0600 -- -- -- -- -- -- 123 kg (272 lb 2.8 oz) 10/24/23 0440 114/87 36.5 ???C (97.7 ???F) Temporal 103 19 96 % -- 10/24/23 0010 120/76 36.6 ???C (97.9 ???F) Temporal 103 17 96 % -- 10/23/23 2110 147/79 36.6 ???C (97.9 ???F) Temporal (!) 112 20 92 % -- Physical Examination: GENERAL: AOx3, in no acute distress. HEAD: Atraumatic, normocephalic. EYES: NÉSTOR, EOMI. NECK: No JVD present. CARDIAC: RRR. No murmur, rubs, or gallops. RESPIRATORY: CTAB, no increased effort of breathing. ABDOMEN: Soft, nontender, nondistended. EXTREMITIES: No lower extremity edema, peripheral pulses are 2+ bilaterally. NEURO: No focal deficits Relevant Lab Results @LABRESULTS@ Encounter Date: 10/20/23 ECG 12 lead Result Value Ventricular Rate 97 Atrial Rate 250 QRS DURATION 116 QT Interval 382 QTC CALCULATION(BAZETT) 485 P [place] 267 R-[place] -9 T Wave [place] 64 Impression Atrial flutter with variable A-V block Cannot rule out Inferior infarct , age undetermined Abnormal ECG No previous ECGs available Confirmed by Nicky TAMEZ, L.S. (2) on 10/21/2023 6:27:14 PM No results found for: CKTOTAL , CKMB , CKMBINDEX , TROPONINI Complete Echo (TTE) w/wo Imaging Agent, Strain, 3D, Bubble Study Result Date: 10/22/2023 1 1 [facility] Heart Station [address] [place] [address] [phone] (fax) Echocardiogram-[facility] Name: LAISHA PERRIN Study Date: 10/21/2023 02:19 PM B/P: 112 mmHg/92 mmHg HR: 108 bpm Date of : 1960 Location: [facility] Height: 74 in. Age: 63 year(s) Patient Room: 3141 Weight: 278 lb. Gender: Male Patient Status: InPt BSA: 2.5 m2 Indication: Atrial Fibrillation, Atrial Flutter Examination: Echocardiogram (Complete) Image Quality: Fair Patient Consent: Procedure explained to patient Conclusions Left Ventricle: The left ventricle is normal size. Global left ventricular systolic function is severely reduced. The EF is 20 % visually. Left ventricular wall thickness is mildly increased. No regional wall motion abnormality. Right Ventricle: The right ventricle is at upper normal limits in size. Mildly reduced right ventricular systolic function.Doppler studies suggest normal right sided pressures. Left Atrium: The left atrium is mildly enlarged. Overall Conclusions: No significant valvular abnormalities Measurements Left Ventricle Label Value Normal Value LVOTd 2 cm (19cm - 21cm) LVOT VTI 9 cm (18cm - 22cm) LV (more content not included)... Normal [facility] ANTI-XA (HEPARIN LEVEL)on HEPARIN UNFRACTIONATED (U/ML) IN PPP BY CHROMOGENIC METHOD 0.51 IU/mL Normal 0.3-0.7 [facility] Comment on above: Result Comment: [place] roxaban and Apixaban will interfere with the anti Xa assay used to monitor UFH and LMWH. Performed By: #### L [id number] #### [facility] ([facility]) [address] [place] [address] BASIC METABOLIC PANELon 10-06 Anion gap [Moles/Vol] 12 mmol/L Normal 7-20 [facility] Comment on above: Performed By: #### L [id number] #### [facility] ([facility]) [address] [place] [address] Calcium [Mass/Vol] 9.2 mg/dL Normal 8.6-10.3 [facility] Comment on above: Performed By: #### L [id number] #### [facility] [address] [place] [address] Chloride [Moles/Vol] 100 mmol/L Normal 98-107 [facility] Comment on above: Performed By: #### L [id number] #### [facility] ([facility]) [address] [place] [address] CO2 [Moles/Vol] 28 mmol/L Normal 21-31 [facility] Comment on above: Performed By: #### L [id number] #### [facility] ([facility]) [address] [place] [address] Creatinine [Mass/Vol] 1.28 mg/dL Normal 0.70-1.30 [facility] Comment on above: Performed By: #### L [id number] #### [facility] ([facility]) [address] [place] [address] GLOMERULAR FILTRATION RATE ML/MIN/1.73 SQ M.PREDICTED 62.9 mL/min/1.73m*2 Normal >60.0 [facility] Comment on above: Result Comment: The [facility]???s estimated glomerular filtration rate (eGFR) will no longer include consideration of race in its calculation. The National Kidney Foundation???s eGFR Task Force developed new recommendations for the estimation of the glomerular filtration rate in the [place] They recommend immediate implementation of the new equation refit without the race variable in all laboratories because the calculation does not include race. In addition to not including race in the calculation and reporting, it included diversity in its development, and has acceptable performance characteristics and potential consequences that do not disproportionately affect any one group of individuals. Performed By: #### L [id number] #### [facility] [address] [place] [address] Glucose [Mass/Vol] 111 mg/dL High 70-100 [facility] Comment on above: Performed By: #### L [id number] #### [facility] ([facility]) [address] [place] [address] Potassium [Moles/Vol] 4.0 mmol/L Normal 3.5-5.1 [facility] Comment on above: Performed By: #### L [id number] #### [facility] ([facility]) [address] [place] [address] Sodium [Moles/Vol] 136 mmol/L Normal 136-145 [facility] Comment on above: Performed By: #### L [id number] #### [facility] ([facility]) [address] [place] [address] Urea nitrogen [Mass/Vol] 24 mg/dL Normal 7-25 [facility] Comment on above: Performed By: #### L [id number] #### [facility] ([facility]) [address] [place] [address] UREA NITROGEN/CREATININE (MASS RATIO) IN SER/PLAS 18.8 Normal [facility] Comment on above: Performed By: #### L [id number] #### [facility] [address] [place] [address] 30on 10-22-2023 30 The patient is Moderately Stable - Low risk of patient condition declining or worsening The patient's goals for the shift include comfort, rest The clinical goals for the shift include stable vitals Over the shift, the patient did not make progress toward the following goals. Problem: Pain - Adult Goal: Verbalizes/displays adequate comfort level or baseline comfort level Outcome: Progressing Problem: Safety - Adult Goal: Free from fall injury Outcome: Progressing Problem: Discharge Planning Goal: Discharge to home or other facility with appropriate resources Outcome: Progressing Problem: Chronic Conditions and Co-morbidities Goal: Patient's chronic conditions and co-morbidity symptoms are monitored and maintained or improved Outcome: Progressing Normal [facility] 30 The patient is Moderately Stable - Low risk of patient condition declining or worsening The patient's goals for the shift include Rest The clinical goals for the shift include control heartrate Problem: Pain - Adult Goal: Verbalizes/displays adequate comfort level or baseline comfort level Outcome: Progressing Problem: Safety - Adult Goal: Free from fall injury Outcome: Progressing Problem: Discharge Planning Goal: Discharge to home or other facility with appropriate resources Outcome: Progressing Problem: Chronic Conditions and Co-morbidities Goal: Patient's chronic conditions and co-morbidity symptoms are monitored and maintained or improved Outcome: Progressing Normal [facility] ANTI-XA (HEPARIN LEVEL)on HEPARIN UNFRACTIONATED (U/ML) IN PPP BY CHROMOGENIC METHOD 0.51 IU/mL Normal 0.3-0.7 [facility] Comment on above: Result Comment: [place] roxaban and Apixaban will interfere with the anti Xa assay used to monitor UFH and LMWH. Performed By: #### L [id number] #### [facility] [address] [place] [address] BASIC METABOLIC PANELon 10-06 Anion gap [Moles/Vol] 10 mmol/L Normal 7-20 [facility] Comment on above: Performed By: #### L [id number] #### [facility] ([facility]) [address] [place] [address] Calcium [Mass/Vol] 9.1 mg/dL Normal 8.6-10.3 [facility] Comment on above: Performed By: #### L [id number] #### [facility] [address] [place] [address] Chloride [Moles/Vol] 101 mmol/L Normal 98-107 [facility] Comment on above: Performed By: #### L [id number] #### [facility] ([facility]) [address] [place] [address] CO2 [Moles/Vol] 28 mmol/L Normal 21-31 [facility] Comment on above: Performed By: #### L [id number] #### [facility] ([facility]) [address] [place] [address] Creatinine [Mass/Vol] 1.40 mg/dL High 0.70-1.30 [facility] Comment on above: Performed By: #### L [id number] #### [facility] ([facility]) [address] [place] [address] GLOMERULAR FILTRATION RATE ML/MIN/1.73 SQ M.PREDICTED 56.5 mL/min/1.73m*2 Low >60.0 [facility] Comment on above: Result Comment: The [facility]???s estimated glomerular filtration rate (eGFR) will no longer include consideration of race in its calculation. The National Kidney Foundation???s eGFR Task Force developed new recommendations for the estimation of the glomerular filtration rate in the [place] They recommend immediate implementation of the new equation refit without the race variable in all laboratories because the calculation does not include race. In addition to not including race in the calculation and reporting, it included diversity in its development, and has acceptable performance characteristics and potential consequences that do not disproportionately affect any one group of individuals. Performed By: #### L [id number] #### [facility] ([facility]) [address] [place] [address] Glucose [Mass/Vol] 134 mg/dL High 70-100 [facility] Comment on above: Performed By: #### L [id number] #### [facility] ([facility]) [address] [place] [address] Potassium [Moles/Vol] 3.8 mmol/L Normal 3.5-5.1 [facility] Comment on above: Performed By: #### L [id number] #### [facility] ([facility]) [address] [place] [address] Sodium [Moles/Vol] 135 mmol/L Low 136-145 [facility] Comment on above: Performed By: #### L [id number] #### [facility] ([facility]) [address] [place] [address] Urea nitrogen [Mass/Vol] 21 mg/dL Normal 7-25 [facility] Comment on above: Performed By: #### L [id number] #### [facility] ([facility]) [address] [place] [address] UREA NITROGEN/CREATININE (MASS RATIO) IN SER/PLAS 15.0 Normal [facility] Comment on above: Performed By: #### L [id number] #### [facility] [address] [place] [address] CBCon 10-22-2023 Erythrocyte distribution width (RBC) [Ratio] 12.9 % Normal 11.5-15.0 [facility] Comment on above: Performed By: #### L [id number] ####[facility] ([facility])[address] [place] [address] ERYTHROCYTE MEAN CORPUSCULAR HEMOGLOBIN CONCENTRATION (G/DL) BY AUTOMATED 34.5 g/dL Normal 32.0-35.0 [facility] Comment on above: Performed By: #### L [id number] ####[facility] ([facility])[address] [place] [address] Hematocrit (Bld) [Volume fraction] 47.5 % Normal 39.0-55.0 [facility] Comment on above: Performed By: #### L [id number] ####[facility] ([facility])[address] [place] [address] Hemoglobin (Bld) [Mass/Vol] 16.4 g/dL Normal 13.0-17.0 [facility] Comment on above: Performed By: #### L [id number] ####[facility] ([facility])[address] [place] [address] MCH (RBC) [Entitic mass] 31.3 pg Normal 27.0-33.0 [facility] Comment on above: Performed By: #### L [id number] ####[facility] ([facility])[address] [place] [address] MCV (RBC) [Entitic vol] 90.6 fL Normal 82.0-98.0 [facility] Comment on above: Performed By: #### L [id number] ####[facility] ([facility])[address] [place] [address] PLATELETS (10*3/UL) IN BLOOD AUTOMATED COUNT 242 10*3/uL Normal 150-400 [facility] Comment on above: Performed By: #### L [id number] ####[facility] ([facility])[address] [place] [address] RBC (Bld) [#/Vol] 5.24 10*6/uL Normal 4.20-5.70 [facility] Comment on above: Performed By: #### L [id number] ####[facility] ([facility])[address] [place] [address] WBC (Bld) [#/Vol] 7.70 10*3/uL Normal 4.00-10.60 [facility] Comment on above: Performed By: #### L [id number] ####[facility] ([facility])[address] [place] [address] 30on 10-21-2023 30 Problem: Pain - Adul t Goal: Verbalizes/displays adequate comfort level or baseline comfort level Outcome: Progressing Problem: Safety - Adult Goal: Free from fall injury Outcome: Progressing Flowsheets (Taken 10/21/2023729) Free from fall injury: Assess patient frequently for physical needs Identify cognitive and physical deficits and behaviors that affect risk of falls Maple fall precautions as indicated by assessment Educate patient/family on patient safety, including physical limitations Instruct patient to call for assistance with activity based on assessment Modify environment to reduce risk of injury Consider OT/PT consult to assist with strengthening/mobilit y Problem: Discharge Planning Goal: Discharge to home or other facility with appropriate resources Outcome: Progressing Flowsheets (Taken 10/21/2023718) Discharge to home or other facility with appropriate resources: Identify barriers to discharge with patient and caregiver Arrange for needed discharge resources and transportation as appropriate Identify discharge learning needs (meds, wound care, etc) Arrange for interpreters to assist at discharge as needed Refer to discharge planning if patient needs post-hospital services based on physician order or complex needs related to functional status, cognitive ability or social support system Problem: Chronic Conditions and Co-morbidities Goal: Patient's chronic conditions and co-morbidity symptoms are monitored and maintained or improved Outcome: Progressing Flowsheets (Taken 10/21/2023718) Care Plan - Patient's Chronic Conditions and Co-Morbidity Symptoms are Monitored and Maintained or Improved: Monitor and assess patient's chronic conditions and comorbid symptoms for stability, deterioration, or improvement Collaborate with multidisciplinary team to address chronic and comorbid conditions and prevent exacerbation or deterioration Update acute care plan with appropriate goals if chronic or comorbid symptoms are exacerbated and prevent overall improvement and discharge The patient is Moderately Stable - Low risk of patient condition declining or worsening The patient's goals for the shift include cath The clinical goals for the shift include control heartrate Normal [facility] 30 The patient is Moderately Stable - Low risk of patient condition declining or worsening The patient's goals for the shift include Rest The clinical goals for the shift include stable vs Problem: Safety - Adult Goal: Free from fall injury Outcome: Progressing Problem: Chronic Conditions and Co-morbidities Goal: Patient's chronic conditions and co-morbidity symptoms are monitored and maintained or improved Outcome: Progressing Normal [facility] ANTI-XA (HEPARIN LEVEL)on HEPARIN UNFRACTIONATED (U/ML) IN PPP BY CHROMOGENIC METHOD 0.59 IU/mL Normal 0.3-0.7 [facility] Comment on above: Result Comment: [place] roxaban and Apixaban will interfere with the anti Xa assay used to monitor UFH and LMWH. Performed By: #### L [id number] #### [facility] ([facility]) [address] [place] [address] HEPARIN UNFRACTIONATED (U/ML) IN PPP BY CHROMOGENIC METHOD 0.72 IU/mL High 0.3-0.7 [facility] Comment on above: Result Comment: [place] roxaban and Apixaban will interfere with the anti Xa assay used to monitor UFH and LMWH. Performed By: #### L [id number] #### [facility] ([place]) [address] [place] [address] HEPARIN UNFRACTIONATED (U/ML) IN PPP BY CHROMOGENIC METHOD 0.43 IU/mL Normal 0.3-0.7 [facility] Comment on above: Order Comment: Check anti-Xa level every 6 hours while on heparin infusion, or per protocol. Result Comment: [place] roxaban and Apixaban will interfere with the anti Xa assay used to monitor UFH and LMWH. Performed By: #### L [id number] ####[facility] ([facility])[address] [place] [address] APTTon 10-21-2023 ACTIVATED PARTIAL THROMBOPLASTIN TIME IN PPP BY COAGULATION ASSAY 35.9 Seconds High 25.0-35.0 [facility] Comment on above: Order Comment: Basel ine aPTT before initiating heparin infusion. Result Comment: Clin ical significance of the APTT is questionable in the presence of heparin. Performed By: #### L [id number] ####[facility] ([facility])[address] [place] [address] B-TYPE NATRIURETIC PEPTIDEon 10-21-2023 Natriuretic peptide B (Bld) [Mass/Vol] 169 pg/mL High 0-100 [facility] Comment on above: Performed By: #### L [id number] #### [facility] ([facility]) [address] [place] [address] CBC WITH AUTO DIFFERENTIALon 10-21-2023 Basophils (Bld) [#/Vol] 0.03 10*3/uL Normal 0.00-0.20 [facility] Comment on above: Performed By: #### L [id number] #### [facility] ([facility]) [address] [place] [address] Basophils/100 WBC (Bld) 0.4 % Normal 0.0-1.0 [facility] Comment on above: Performed By: #### L [id number] #### [facility] ([facility]) [address] [place] [address] Eosinophils (Bld) [#/Vol] 0.21 10*3/uL Normal 0.00-0.50 [facility] Comment on above: Performed By: #### L [id number] #### [facility] ([facility]) [address] [place] [address] Eosinophils/100 WBC (Bld) 2.5 % Normal 0.0-6.0 [facility] Comment on above: Performed By: #### L [id number] #### [facility] ([facility]) [address] [place] [address] Erythrocyte distribution width (RBC) [Ratio] 12.8 % Normal 11.5-15.0 [facility] Comment on above: Performed By: #### L [id number] #### [facility] ([facility]) [address] [place] [address] ERYTHROCYTE MEAN CORPUSCULAR HEMOGLOBIN CONCENTRATION (G/DL) BY AUTOMATED 33.7 g/dL Normal 32.0-35.0 [facility] Comment on above: Performed By: #### L [id number] #### [facility] ([facility]) [address] [place] [address] Hematocrit (Bld) [Volume fraction] 46.0 % Normal 39.0-55.0 [facility] Comment on above: Performed By: #### L [id number] #### [facility] [address] [place] [address] Hemoglobin (Bld) [Mass/Vol] 15.5 g/dL Normal 13.0-17.0 [facility] Comment on above: Performed By: #### L [id number] #### [facility] ([facility]) [address] [place] [address] Immature granulocytes (Bld) [#/Vol] 0.03 10*3/uL Normal 0.00-0.20 [facility] Comment on above: Performed By: #### L [id number] #### [facility] ([facility]) [address] [place] [address] Immature granulocytes/100 WBC (Bld) 0.4 % Normal 0.0-1.0 [facility] Comment on above: Performed By: #### L [id number] #### [facility] ([facility]) [address] [place] [address] Lymphocytes (Bld) [#/Vol] 2.58 10*3/uL Normal 1.20-4.00 [facility] Comment on above: Performed By: #### L [id number] #### [facility] ([facility]) [address] [place] [address] Lymphocytes/100 WBC (Bld) 30.3 % Normal 20.0-45.0 [facility] Comment on above: Performed By: #### L [id number] #### [facility] ([facility]) [address] [place] [address] MCH (RBC) [Entitic mass] 30.4 pg Normal 27.0-33.0 [facility] Comment on above: Performed By: #### L [id number] #### [facility] ([facility]) [address] [place] [address] MCV (RBC) [Entitic vol] 90.2 fL Normal 82.0-98.0 [facility] Comment on above: Performed By: #### L [id number] #### [facility] ([facility]) [address] [place] [address] Monocytes (Bld) [#/Vol] 0.82 10*3/uL Normal 0.10-1.00 [facility] Comment on above: Performed By: #### L [id number] #### [facility] ([facility]) [address] [place] [address] Monocytes/100 WBC (Bld) 9.6 % Normal 5.0-12.0 [facility] Comment on above: Performed By: #### L [id number] #### [facility] ([facility]) [address] [place] [address] Neutrophils (Bld) [#/Vol] 4.85 10*3/uL Normal 1.60-7.60 [facility] Comment on above: Performed By: #### L [id number] #### [facility] ([facility]) [address] [place] [address] Neutrophils/100 WBC (Bld) 56.8 % Normal 40.0-72.0 [facility] Comment on above: Performed By: #### L [id number] #### [facility] ([facility]) [address] [place] [address] NRBC (PER 100 WBCS) BY AUTOMATED COUNT 0.0 % Normal 0 [facility] Comment on above: Performed By: #### L [id number] #### [facility] ([facility]) [address] [place] [address] PLATELETS (10*3/UL) IN BLOOD AUTOMATED COUNT 249 10*3/uL Normal 150-400 [facility] Comment on above: Performed By: #### L [id number] #### [facility] ([facility]) [address] [place] [address] RBC (Bld) [#/Vol] 5.10 10*6/uL Normal 4.20-5.70 [facility] Comment on above: Performed By: #### L [id number] #### [facility] ([facility]) [address] [place] [address] WBC (Bld) [#/Vol] 8.52 10*3/uL Normal 4.00-10.60 [facility] Comment on above: Performed By: #### L [id number] #### [facility] ([facility]) [address] [place] [address] COMPREHENSIVE METABOLIC PANE Eyal 10-21-2023 Albumin [Mass/Vol] 4.0 g/dL Normal 3.5-5.7 [facility] Comment on above: Performed By: #### L [id number] #### [facility] ([facility]) [address] [place] [address] ALP [Catalytic activity/Vol] 44 U/L Normal 34-104 [facility] Comment on above: Performed By: #### L [id number] #### [facility] ([facility]) [address] [place] [address] ALT [Catalytic activity/Vol] 16 U/L Normal 7-52 [facility] Comment on above: Performed By: #### L [id number] #### [facility] ([facility]) [address] [place] [address] Anion gap [Moles/Vol] 12 mmol/L Normal 7-20 [facility] Comment on above: Performed By: #### L [id number] #### [facility] ([facility]) [address] [place] [address] AST [Catalytic activity/Vol] 19 U/L Normal 13-39 [facility] Comment on above: Performed By: #### L [id number] #### [facility] [address] [place] [address] Bilirubin [Mass/Vol] 0.9 mg/dL Normal 0.3-1.0 [facility] Comment on above: Performed By: #### L [id number] #### [facility] [address] [place] [address] Calcium [Mass/Vol] 8.9 mg/dL Normal 8.6-10.3 [facility] Comment on above: Performed By: #### L [id number] #### [facility] ([facility]) [address] [place] [address] Chloride [Moles/Vol] 100 mmol/L Normal 98-107 [facility] Comment on above: Performed By: #### L [id number] #### [facility] [address] [place] [address] CO2 [Moles/Vol] 30 mmol/L Normal 21-31 [facility] Comment on above: Performed By: #### L [id number] #### [facility] ([facility]) [address] [place] [address] Creatinine [Mass/Vol] 1.39 mg/dL High 0.70-1.30 [facility] Comment on above: Performed By: #### L [id number] #### [facility] [address] [place] [address] GLOMERULAR FILTRATION RATE ML/MIN/1.73 SQ M.PREDICTED 57.0 mL/min/1.73m*2 Low >60.0 [facility] Comment on above: Result Comment: The [facility]???s estimated glomerular filtration rate (eGFR) will no longer include consideration of race in its calculation. The National Kidney Foundation???s eGFR Task Force developed new recommendations for the estimation of the glomerular filtration rate in the [place] They recommend immediate implementation of the new equation refit without the race variable in all laboratories because the calculation does not include race. In addition to not including race in the calculation and reporting, it included diversity in its development, and has acceptable performance characteristics and potential consequences that do not disproportionately affect any one group of individuals. Performed By: #### L [id number] #### [facility] ([facility]) [address] [place] [address] Glucose [Mass/Vol] 99 mg/dL Normal 70-100 [facility] Comment on above: Performed By: #### L [id number] #### [facility] ([facility]) [address] [place] [address] Potassium [Moles/Vol] 3.8 mmol/L Normal 3.5-5.1 [facility] Comment on above: Performed By: #### L [id number] #### [facility] ([facility]) [address] [place] [address] Protein [Mass/Vol] 6.4 g/dL Normal 6.0-8.3 [facility] Comment on above: Performed By: #### L [id number] #### [facility] ([facility]) [address] [place] [address] Sodium [Moles/Vol] 138 mmol/L Normal 136-145 [facility] Comment on above: Performed By: #### L [id number] #### [facility] ([facility]) [address] [place] [address] Urea nitrogen [Mass/Vol] 20 mg/dL Normal 7-25 [facility] Comment on above: Performed By: #### L [id number] #### [facility] ([facility]) [address] [place] [address] UREA NITROGEN/CREATININE (MASS RATIO) IN SER/PLAS 14.4 Normal [facility] Comment on above: Performed By: #### L [id number] #### [facility] ([facility]) [address] [place] [address] CONSULTon 10-21-2023 CONSULT Cardiology Consult Note Reason for Consult: A. fib/flutter HPI: Ranjit Perrin is a 63 y.o. male was transferred from [facility], the patient presented there with shortness of breath, and palpitation he said he started feeling episodes of palpitation for the last 2 weeks prior to his admission, he was being treated as pneumonia, he was found to have atrial flutter, evaluation there showed elevated BNP at 700, echo was done showed drop in ejection fraction to 10 to 15%, he has known normal baseline EF, the patient was transferred to our hospital for further evaluation. patient denies exertional chest pain, denies orthopnea, denies PND's denies lower extremity swelling. Cardiology ROS: GENERAL: Denies fever, chills, night sweats, weight loss. CARDIOVASCULAR: mentioned RESPIRATORY: Denies SOB, coughing, wheezing GI: Denies abdominal pain, nausea/vomiting. PSYCH: Denies anxiety. Past Medical History He has no past medical history on file. Surgical History He has no past surgical history on file. Social History He reports that he quit smoking about 15 years ago. His smoking use included cigarettes. He has never used smokeless tobacco. No history on file for alcohol use and drug use. Family History No family history on file. Allergies Patient has no allergy information on record. Medications Medications Prior to Admission Medication Sig Dispense Refill Last Dose lisinopril 20 mg tablet Take 20 mg by mouth in the morning. Last Recorded Vitals Patient Vitals for the past 24 hrs: BP Temp Temp src Pulse Resp SpO2 Height Weight 10/21/23 1247 (!) 112/92 36.4 ???C (97.5 ???F) Temporal 106 22 95 % -- -- 10/21/23 1029 (!) 125/91 36.6 ???C (97.9 ???F) Temporal 100 19 95 % -- -- 10/21/23 0833 -- -- -- -- -- 93 % -- -- 10/21/23 0719 114/84 36.6 ???C (97.9 ???F) Temporal 98 14 92 % -- -- 10/21/23 0525 -- -- -- -- -- -- -- 126 kg (278 lb 6.4 oz) 10/21/23 0355 109/87 -- -- 93 16 93 % -- -- 10/20/23 2348 (!) 124/92 36.7 ???C (98.1 ???F) Temporal 96 20 96 % 1.88 m (6' 2.02 ) 126 kg (278 lb 6.4 oz) Physical Examination: GENERAL: AOx3, in no acute distress. HEAD: Atraumatic, normocephalic. EYES: NÉSTOR, EOMI. NECK: No JVD present. CARDIAC: RRR. No murmur, rubs, or gallops. RESPIRATORY: CTAB, no increased effort of breathing. ABDOMEN: Soft, nontender, nondistended. EXTREMITIES: No lower extremity edema, peripheral pulses are 2+ bilaterally. NEURO: No focal deficits Relevant Lab Results @LABRESULTS@ Encounter Date: 10/20/23 ECG 12 lead Result Value Ventricular Rate 97 Atrial Rate 250 QRS DURATION 116 QT Interval 382 QTC CALCULATION(BAZETT) 485 P [place] 267 R-[place] -9 T Wave [place] 64 Impression Atrial flutter with variable A-V block Inferior infarct , age undetermined Abnormal ECG No previous ECGs available No results found for: CKTOTAL , CKMB , CKMBINDEX , TROPONINI No echocardiogram results found for the past 12 months No nuclear medicine results found for the past 12 months Relevant Imaging Results ECG 12 lead Atrial flutter with variable A-V block Inferior infarct , age undetermined Abnormal ECG No previous ECGs available Assessment: atrial flutter with rapid ventricular response 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 , 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 essential hypertension tobacco use Plan: anticoagulation with Eliquis for stroke prevention, we will try rhythm control with beta-blockers plan on flutter ablation if remains in a flutter plans for coronary angiography to rule out ischemic cardiomyopathy on Tuesday will uptitrate his GDMT based on his blood pressure/kidney function duration will continue to follow Galdino Fischer MD [employer] - PGY4 [facility] By using the attestations below, the signing clinician agrees that I have read and verify that the documentation has been personally reviewed by me and ensure that the documentation accurately reflects the encounter. GC: I personally saw this patient on the day of the encounter, performed the yanez portion(s) of the service and participated in the management and confirm the resident's documentation. Please note there may be an additional personal documentation from me. Will aim for termination to SR on Tuesday with flutter ablation. Educated pt that he possibly has underlying Afib also. Will also consider eval for ischemia if CMP not tachycardia mediated. Normal [facility] PLATELET COUNTon 10-21-2023 PLATELETS (10*3/UL) IN BLOOD AUTOMATED COUNT 279 10*3/uL Normal 150-400 [facility] Comment on above: Performed By: #### L [id number] #### [facility] ([facility]) [address] [place] [address] POCT GLUCOSE METER UNSOLICIT ED RESULTSon 10-21-2023 Glucose [Mass/Vol] 173 mg/dL High 70-105 [facility] Comment on above: Order Comment: Waive d Testing in the ED is performed under the ED CLIA certificate #[id number]. Result Comment: estefani tel2 Performed By: #### L [id number] #### [facility] ([facility]) [address] [place] [address] Alanine aminotransferase [En zymatic activity/volume] in Serum or PlasmaOrdered By: Shaquille Whitten on 07-02-2023 ALT [Catalytic activity/Vol] 14 U/L 7-52 [facility] Albumin [Mass/volume] in Ser um or Plasma by Bromocresol green (BCG) dye binding methoOrdered By: Shaquille Whitten on 07-02-2023 Albumin BCG dye [Mass/Vol] 4.3 g/dL 3.5-5.7 [facility] Alkaline phosphatase [Enzyma tic activity/volume] in Serum or PlasmaOrdered By: Shaquille Whitten on 07-02-2023 ALP [Catalytic activity/Vol] 54 U/L 34-104 [facility] Aspartate aminotransferase [ Enzymatic activity/volume] in Serum or PlasmaOrdered By: Shaquille Whitten on 07-02-2023 AST [Catalytic activity/Vol] 17 U/L 13-39 [facility] Basophils Auto (Bld) [#/Vol] Ordered By: Shaquille Whitten on 07-02-2023 Basophils (Bld) [#/Vol] 0.0 10*3/uL 0.0-0.2 [facility] Basophils/100 WBC Auto (Bld) Ordered By: Shaquille Whitten on 07-02-2023 Basophils/100 WBC (Bld) 0.3 % . F [facility] Bilirubin.total [Mass/volume ] in Serum or PlasmaOrdered By: Shaquille Whitten on 07-02-2023 Bilirubin [Mass/Vol] 1.1 mg/dL 0.3-1.0 [facility] Calcium [Mass/volume] in Ser um or PlasmaOrdered By: Shaquille Whitten on 07-02-2023 Calcium [Mass/Vol] 9.2 mg/dL 8.6-10.3 [facility] Carbon dioxide, total [Moles /volume] in Serum or PlasmaOrdered By: Shaquille Whitten on 07-02-2023 CO2 [Moles/Vol] 29.8 mmol/L 21.0-31.0 [facility] Chloride [Moles/volume] in S wander or PlasmaOrdered By: Shaquille Whitten on 07-02-2023 Chloride [Moles/Vol] 101 mmol/L 98-107 [facility] Cholesterol [Mass/volume] in Serum or PlasmaOrdered By: Shaquille Whitten on 07-02-2023 Cholesterol [Mass/Vol] 172 mg/dL 140-200 [facility] Comment on above: Chol less than 200 m g/dl low riskChol 201-239 mg/dl borderline riskChol 240 mg/dl and greater high risk Cholesterol in LDL Calc [Mas s/Vol]Ordered By: Shaquille Whitten on 07-02-2023 Cholesterol in LDL [Mass/Vol] 116 mg/dL 0-100 [facility] Comment on above: LDL ATP III CLASSIFI CATIONLDL less than 100 mg/dL OptimalLDL 100-129 mg/dL Near or above optimalLDL 130-159 mg/dL Borderline highLDL 160-189 mg/dL HighLDL greater than 189 mg/dL Very high Cholesterol in VLDL Calc [Ma ss/Vol]Ordered By: Shaquille Whitten on 07-02-2023 Cholesterol in VLDL [Mass/Vol] 16 mg/dL [facility] Complete Blood Count Auto Di ffon 07-02-2023 Basophils (Bld) [#/Vol] 0.0 10*3/uL Normal 0.0-0.2 [facility] Comment on above: Order Comment: Reaso n for Exam Essential hypertension;Pre-diabetes;Medication FASTING monitoring en Result Comment: PERF ORMED BY: [place] [address] PATHOLOGIST SERVICE DISMANTLER ALMA GONZALEZ M.D. Performed By: #### L IPID, CMP, CBC #### [facility] [address] [place] [address] [place] Basophils/100 WBC (Bld) 0.3 % Normal . [facility] Comment on above: Order Comment: Reaso n for Exam Essential hypertension;Pre-diabetes;Medication FASTING monitoring en Performed By: #### L IPID, CMP, CBC #### [address] Eosinophils (Bld) [#/Vol] 0.1 10*3/uL Normal 0.0-0.45 [facility] Comment on above: Order Comment: Reaso n for Exam Essential hypertension;Pre-diabetes;Medication FASTING monitoring en Performed By: #### L IPID, CMP, CBC #### [facility] [address] [place] [address] [place] Eosinophils/100 WBC (Bld) 2.0 % Normal . [facility] Comment on above: Order Comment: Reaso n for Exam Essential hypertension;Pre-diabetes;Medication FASTING monitoring en Performed By: #### L IPID, CMP, CBC #### [facility] [address] [place] [address] Erythrocyte distribution width (RBC) [Ratio] 13.3 % Normal 12.0-14.8 [facility] Comment on above: Order Comment: Reaso n for Exam Essential hypertension;Pre-diabetes;Medication FASTING monitoring en Performed By: #### L IPID, CMP, CBC #### [facility] [address] [place] [address] Hematocrit (Bld) [Volume fraction] 44.5 % Normal 38.8-50.0 [facility] Comment on above: Order Comment: Reaso n for Exam Essential hypertension;Pre-diabetes;Medication FASTING monitoring en Performed By: #### L IPID, CMP, CBC #### [address] Hemoglobin (Bld) [Mass/Vol] 15.1 g/dL Normal 13.0-17.0 [facility] Comment on above: Order Comment: Reaso n for Exam Essential hypertension;Pre-diabetes;Medication FASTING monitoring en Performed By: #### L IPID, CMP, CBC #### [address] Lymphocytes (Bld) [#/Vol] 1.7 10*3/uL Normal 1.00-4.8 [facility] Comment on above: Order Comment: Reaso n for Exam Essential hypertension;Pre-diabetes;Medication FASTING monitoring en Performed By: #### L IPID, CMP, CBC #### [address] Lymphocytes/100 WBC (Bld) 22.6 % Normal . [facility] Comment on above: Order Comment: Reaso n for Exam Essential hypertension;Pre-diabetes;Medication FASTING monitoring en Performed By: #### L IPID, CMP, CBC #### [address] MCH (RBC) [Entitic mass] 30.9 pg Normal 27.5-35.2 [facility] Comment on above: Order Comment: Reaso n for Exam Essential hypertension;Pre-diabetes;Medication FASTING monitoring en Performed By: #### L IPID, CMP, CBC #### [address] MCV (RBC) [Entitic vol] 90.9 fL Normal 83.5-101 F [facility] Comment on above: Order Comment: Reaso n for Exam Essential hypertension;Pre-diabetes;Medication FASTING monitoring en Performed By: #### L IPID, CMP, CBC #### [address] Mean Corpuscular HGB Conc 33.9 g/dL Normal 32.5-35.6 [facility] Comment on above: Order Comment: Reaso n for Exam Essential hypertension;Pre-diabetes;Medication FASTING monitoring en Performed By: #### L IPID, CMP, CBC #### [facility] [address] [place] [address] [place] Monocytes (Bld) [#/Vol] 0.8 10*3/uL Normal 0.0-0.8 [facility] Comment on above: Order Comment: Reaso n for Exam Essential hypertension;Pre-diabetes;Medication FASTING monitoring en Performed By: #### L IPID, CMP, CBC #### [facility] [address] [place] [address] [place] Monocytes/100 WBC (Bld) 10.7 % Normal . [facility] Comment on above: Order Comment: Reaso n for Exam Essential hypertension;Pre-diabetes;Medication FASTING monitoring en Performed By: #### L IPID, CMP, CBC #### [facility] [address] [place] [address] [place] Neutrophils (Bld) [#/Vol] 4.8 10*3/uL Normal 1.8-7.7 [facility] Comment on above: Order Comment: Reaso n for Exam Essential hypertension;Pre-diabetes;Medication FASTING monitoring en Performed By: #### L IPID, CMP, CBC #### [facility] [address] [place] [address] [place] Neutrophils/100 WBC (Bld) 64.4 % Normal . [facility] Comment on above: Order Comment: Reaso n for Exam Essential hypertension;Pre-diabetes;Medication FASTING monitoring en Performed By: #### L IPID, CMP, CBC #### [facility] [address] [place] [address] [place] NRBC% 0.2 /100{WBC} Normal 0-0.5 [facility] Comment on above: Order Comment: Reaso n for Exam Essential hypertension;Pre-diabetes;Medication FASTING monitoring en Performed By: #### L IPID, CMP, CBC #### [facility] [address] Platelet mean volume (Bld) [Entitic vol] 7.8 fL Normal 6.6-10.1 [facility] Comment on above: Order Comment: Reaso n for Exam Essential hypertension;Pre-diabetes;Medication FASTING monitoring en Performed By: #### L IPID, CMP, CBC #### [facility] [address] Platelets (Bld) [#/Vol] 212 10*3/uL Normal 150-450 [facility] Comment on above: Order Comment: Reaso n for Exam Essential hypertension;Pre-diabetes;Medication FASTING monitoring en Performed By: #### L IPID, CMP, CBC #### [facility] [address] RBC (Bld) [#/Vol] 4.90 10*6/uL Normal 3.90-5.[address] [facility] Comment on above: Order Comment: Reaso n for Exam Essential hypertension;Pre-diabetes;Medication FASTING monitoring en Performed By: #### L IPID, CMP, CBC #### [address] WBC (Bld) [#/Vol] 7.4 10*3/uL Normal 4.1-10.5 [facility] Comment on above: Order Comment: Reaso n for Exam Essential hypertension;Pre-diabetes;Medication FASTING monitoring en Performed By: #### L IPID, CMP, CBC #### [facility] [address] [place] [address] Comprehensive Metabolic Pane eyal 07-02-2023 Albumin [Mass/Vol] 4.3 g/dL Normal 3.5-5.7 [facility] Comment on above: Order Comment: Reaso n for Exam Essential hypertension;Pre-diabetes Reason for Exam Encounter for screening for cardiovascular disorders Performed By: #### L IPID, CMP, CBC #### [facility] [address] Albumin/Globulin [Mass ratio] 2.0 {ratio} Normal [facility] Comment on above: Order Comment: Reaso n for Exam Essential hypertension;Pre-diabetes Reason for Exam Encounter for screening for cardiovascular disorders Performed By: #### L IPID, CMP, CBC #### [facility] [address] ALP [Catalytic activity/Vol] 54 U/L Normal 34-104 [facility] Comment on above: Order Comment: Reaso n for Exam Essential hypertension;Pre-diabetes Reason for Exam Encounter for screening for cardiovascular disorders Performed By: #### L IPID, CMP, CBC #### [facility] [address] [place] [id number] [facility] ALT [Catalytic activity/Vol] 14 U/L Normal 7-52 [facility] Comment on above: Order Comment: Reaso n for Exam Essential hypertension;Pre-diabetes Reason for Exam Encounter for screening for cardiovascular disorders Performed By: #### L IPID, CMP, CBC #### [facility] [address] Anion gap [Moles/Vol] 9.8 mmol/L Normal 6.0-15.0 [facility] Comment on above: Order Comment: Reaso n for Exam Essential hypertension;Pre-diabetes Reason for Exam Encounter for screening for cardiovascular disorders Performed By: #### L IPID, CMP, CBC #### [facility] [address] AST [Catalytic activity/Vol] 17 U/L Normal 13-39 [facility] Comment on above: Order Comment: Reaso n for Exam Essential hypertension;Pre-diabetes Reason for Exam Encounter for screening for cardiovascular disorders Performed By: #### L IPID, CMP, CBC #### [facility] [address] Bilirubin [Mass/Vol] 1.1 mg/dL High 0.3-1.0 [facility] Comment on above: Order Comment: Reaso n for Exam Essential hypertension;Pre-diabetes Reason for Exam Encounter for screening for cardiovascular disorders Performed By: #### L IPID, CMP, CBC #### [facility] [address] [place] [address] [place] Calcium [Mass/Vol] 9.2 mg/dL Normal 8.6-10.3 [facility] Comment on above: Order Comment: Reaso n for Exam Essential hypertension;Pre-diabetes Reason for Exam Encounter for screening for cardiovascular disorders Performed By: #### L IPID, CMP, CBC #### [facility] [address] [place] [address] [place] Chloride [Moles/Vol] 101 mmol/L Normal 98-107 [facility] Comment on above: Order Comment: Reaso n for Exam Essential hypertension;Pre-diabetes Reason for Exam Encounter for screening for cardiovascular disorders Performed By: #### L IPID, CMP, CBC #### [facility] [address] CO2 [Moles/Vol] 29.8 mmol/L Normal 21.0-31.0 [facility] Comment on above: Order Comment: Reaso n for Exam Essential hypertension;Pre-diabetes Reason for Exam Encounter for screening for cardiovascular disorders Performed By: #### L IPID, CMP, CBC #### [facility] [address] Creatinine [Mass/Vol] 1.15 mg/dL Normal 0.70-1.30 [facility] Comment on above: Order Comment: Reaso n for Exam Essential hypertension;Pre-diabetes Reason for Exam Encounter for screening for cardiovascular disorders Performed By: #### L IPID, CMP, CBC #### [facility] [address] [place] [address] [place] GFR/1.73 sq M.predicted MDRD (S/P/Bld) [Vol rate/Area] mL/min/{1.73_m2} Normal [facility] Comment on above: Order Comment: Reaso n for Exam Essential hypertension;Pre-diabetes Reason for Exam Encounter for screening for cardiovascular disorders Performed By: #### L IPID, CMP, CBC #### [facility] [address] Globulin (S) [Mass/Vol] 2.1 g/dL Normal [facility] Comment on above: Order Comment: Reaso n for Exam Essential hypertension;Pre-diabetes Reason for Exam Encounter for screening for cardiovascular disorders Performed By: #### L IPID, CMP, CBC #### [facility] [address] [place] [id number] [facility] Glucose [Mass/Vol] 102 mg/dL High 70-100 [facility] Comment on above: Order Comment: Reaso n for Exam Essential hypertension;Pre-diabetes Reason for Exam Encounter for screening for cardiovascular disorders Result Comment: [facility] Glucose Reference Range is dependent on time and content of last meal. Glucose of more than 200 mg/dL in a nonstressed, ambulatory subject supports the diagnosis of Diabetes Mellitus. ADA recommended reference range Performed By: #### L IPID, CMP, CBC #### [facility] [address] [place] [address] [place] Potassium [Moles/Vol] 4.6 mmol/L Normal 3.5-5.1 [facility] Comment on above: Order Comment: Reaso n for Exam Essential hypertension;Pre-diabetes Reason for Exam Encounter for screening for cardiovascular disorders Performed By: #### L IPID, CMP, CBC #### [facility] [address] [place] [address] [place] Protein [Mass/Vol] 6.4 g/dL Normal 6.4-8.9 [facility] Comment on above: Order Comment: Reaso n for Exam Essential hypertension;Pre-diabetes Reason for Exam Encounter for screening for cardiovascular disorders Performed By: #### L IPID, CMP, CBC #### [facility] [address] [place] [id number] [place] Sodium [Moles/Vol] 136 mmol/L Normal 136-145 [facility] Comment on above: Order Comment: Reaso n for Exam Essential hypertension;Pre-diabetes Reason for Exam Encounter for screening for cardiovascular disorders Performed By: #### L IPID, CMP, CBC #### [facility] [address] [place] [id number] [place] Urea nitrogen [Mass/Vol] 18 mg/dL Normal 7-25 [facility] Comment on above: Order Comment: Reaso n for Exam Essential hypertension;Pre-diabetes Reason for Exam Encounter for screening for cardiovascular disorders Performed By: #### L IPID, CMP, CBC #### [facility] [address] [place] [address] [place] Creatinine [Mass/volume] in Serum or PlasmaOrdered By: Shaquille Whitten on 07-02-2023 Creatinine [Mass/Vol] 1.15 mg/dL 0.70-1.30 [facility] Eosinophils Auto (Bld) [#/Vo l]Ordered By: Shaquille Whitten on 07-02-2023 Eosinophils (Bld) [#/Vol] 0.1 10*3/uL 0.0-0.45 [facility] Eosinophils/100 WBC Auto (Bl d)Ordered By: Shaquille Whitten on 07-02-2023 Eosinophils/100 WBC (Bld) 2.0 % . [facility] Erythrocyte distribution wid th Auto (RBC) [Ratio]Ordered By: Shaquille Whitten on 07-02-2023 Erythrocyte distribution width (RBC) [Ratio] 13.3 % 12.0-14.8 [facility] Globulin Calc (S) [Mass/Vol] Ordered By: Shaquille Whitten on 07-02-2023 Globulin (S) [Mass/Vol] 2.1 g/dL F [facility] Glucose [Mass/volume] in Ser um or PlasmaOrdered By: Shaquille Whitten on 07-02-2023 Glucose [Mass/Vol] 102 mg/dL 70-100 [facility] Comment on above: ADA recommended refe rence rangeRandom Glucose Reference Range is dependent on time and content of last meal. Glucose of more than 200 mg/dL in a nonstressed, ambulatory subject supports the diagnosis of Diabetes Mellitus. Hematocrit Auto (Bld) [Volum e fraction]Ordered By: Shaquille Whitten on 07-02-2023 Hematocrit (Bld) [Volume fraction] 44.5 % 38.8-50.0 [facility] Hemoglobin [Mass/volume] in BloodOrdered By: Shaquille Whitten on 07-02-2023 Hemoglobin (Bld) [Mass/Vol] 15.1 g/dL 13.0-17.0 [facility] Leukocytes [#/volume] correc natalio for nucleated erythrocytes in Blood by Automated counOrdered By: Shaquille Whitten on 07-02-2023 WBC corrected for nucl RBC Auto (Bld) [#/Vol] 7.4 10*3/uL 4.1-10.5 [facility] Lipid Panelon 07-02-2023 Cholesterol [Mass/Vol] 172 mg/dL Normal 140-200 [facility] Comment on above: Order Comment: Reaso n for Exam Essential hypertension;Pre-diabetes Reason for Exam Encounter for screening for cardiovascular disorders Result Comment: Chol less than 200 mg/dl low risk Chol 201-239 mg/dl borderline risk Chol 240 mg/dl and greater high risk Performed By: #### L IPID, CMP, CBC #### [facility] [address] [place] [id number] [place] Cholesterol in HDL [Mass/Vol] 40 mg/dL Normal 23-92 [facility] Comment on above: Order Comment: Reaso n for Exam Essential hypertension;Pre-diabetes Reason for Exam Encounter for screening for cardiovascular disorders Result Comment: HDL CHOL ATP-III CLASSIFICATION Cardiovascular Risk HDL > or equal to 60 mg/dL LOW HDL < 40 mg/dL HIGH Performed By: #### L IPID, CMP, CBC #### [facility] [address] [place] [address] [place] Cholesterol.total/Merna sterol in HDL [Mass ratio] 4.3 {ratio} Normal <5.0 [facility] Comment on above: Order Comment: Reaso n for Exam Essential hypertension;Pre-diabetes Reason for Exam Encounter for screening for cardiovascular disorders Result Comment: PERF ORMED BY: [place] [address] PATHOLOGIST SERVICE DISMANTLER ALMA GONZALEZ M.D. Performed By: #### L IPID, CMP, CBC #### [facility] [address] LDL Cholesterol,Calculated 116 mg/dL High 0-100 [facility] Comment on above: Order Comment: Reaso [...] By: #### L IPID, CMP, CBC #### [facility] [address] [place] [id number] [place] Triglyceride w/Reflex 80 mg/dL Normal 0-149 [facility] Comment on above: Order Comment: Reaso n [...] By: #### L IPID, CMP, CBC #### [facility] [address] VLDL CHOLESTEROL 16 mg/dL Normal [facility] Comment on above: Order Comment: Reaso n for Exam Essential hypertension;Pre-diabetes Reason for Exam Encounter for screening for cardiovascular disorders Performed By: #### L IPID, CMP, CBC #### [facility] [address] Lymphocytes Auto (Bld) [#/Vo l]Ordered By: Shaquille Whitten on 07-02-2023 Lymphocytes (Bld) [#/Vol] 1.7 10*3/uL 1.00-4.8 [facility] Lymphocytes/100 WBC Auto (Bl d)Ordered By: Shaquille Whitten on 07-02-2023 Lymphocytes/100 WBC (Bld) 22.6 % . [facility] MCH Auto (RBC) [Entitic mass ]Ordered By: Shaquille Whitten on 07-02-2023 MCH (RBC) [Entitic mass] 30.9 pg 27.5-35.2 [facility] MCHC Auto (RBC) [Mass/Vol]Or dered By: Shaquille Whitten on 07-02-2023 MCHC (RBC) [Mass/Vol] 33.9 g/dL 32.5-35.6 [facility] MCV Auto (RBC) [Entitic vol] Ordered By: Shaquille Whitten on 07-02-2023 MCV (RBC) [Entitic vol] 90.9 fL 83.5-101 F [facility] Monocytes Auto (Bld) [#/Vol] Ordered By: Shaquille Whitten on 07-02-2023 Monocytes (Bld) [#/Vol] 0.8 10*3/uL 0.0-0.8 [facility] Monocytes/100 WBC Auto (Bld) Ordered By: Shaquille Whitten on 07-02-2023 Monocytes/100 WBC (Bld) 10.7 % . [facility] Neutrophils Auto (Bld) [#/Vo l]Ordered By: Shaquille Whitten on 07-02-2023 Neutrophils (Bld) [#/Vol] 4.8 10*3/uL 1.8-7.7 [facility] Neutrophils/100 WBC Auto (Bl d)Ordered By: Shaquille Whitten on 07-02-2023 Neutrophils/100 WBC (Bld) 64.4 % . [facility] No Panel InformationOrdered By: Shaquille Whitten on 07-02-2023 Estimated GFR (CKD-EPI) > 60.0 mL/Min [facility] Creatinine Clearance (Chem N/A [facility] Nucleated erythrocytes [Pres ence] in Blood by Automated countOrdered By: Shaquille Whitten on 07-02-2023 Nucleated RBC Auto Ql (Bld) 0.2 /100{WBC} 0-0.5 [facility] PSA Screen (Yearly Only)on 1 PSA Screen (Yearly Only) 2.130 ng/mL Normal 0.000-4.000 [facility] Comment on above: Order Comment: Reaso n for Exam Screening for prostate cancer Result Comment: PERF ORMED BY: [place] [address] PATHOLOGIST SERVICE DISM[employer] ALMA GONZALEZ M.D. Performed By: #### P SAS #### [address] Platelet mean volume Auto (B ld) [Entitic vol]Ordered By: Shaquille Whitten on 07-02-2023 Platelet mean volume (Bld) [Entitic vol] 7.8 fL 6.6-10.1 [facility] Platelets Auto (Bld) [#/Vol] Ordered By: Shaquille Whitten on 07-02-2023 Platelets (Bld) [#/Vol] 212 10*3/uL 150-450 [facility] Potassium [Moles/volume] in Serum or PlasmaOrdered By: Shaquille Whitten on 07-02-2023 Potassium [Moles/Vol] 4.6 mmol/L 3.5-5.1 [facility] Prostate specific Ag [Mass/v olume] in Serum or PlasmaOrdered By: Shaquille Whitten on 07-02-2023 Prostate specific Ag [Mass/Vol] 2.130 ng/mL 0.000-4.000 [facility] Protein [Mass/volume] in Ser um or PlasmaOrdered By: Shaquille Whitten on 07-02-2023 Protein [Mass/Vol] 6.4 g/dL 6.4-8.9 [facility] RBC Auto (Bld) [#/Vol]Ordere d By: Shaquille Whitten on 07-02-2023 RBC (Bld) [#/Vol] 4.90 10*6/uL 3.90-5.[address] [facility] Serum or plasma albumin/glob ulin mass ratioOrdered By: Shaquille Whitten on 07-02-2023 Albumin/Globulin [Mass ratio] 2.0 {ratio} [facility] Serum or plasma anion gap de terminationOrdered By: Shaquille Whitten on 07-02-2023 Anion gap [Moles/Vol] 9.8 mmol/L 6.0-15.0 [facility] Serum or plasma high density lipoprotein (HDL) cholesterol measurementOrdered By: Shaquille Whitten on 07-02-2023 Cholesterol in HDL [Mass/Vol] 40 mg/dL 23-92 [facility] Comment on above: HDL CHOL ATP-III CLA SSIFICATION Cardiovascular RiskHDL > or equal to 60 mg/dL LOWHDL < 40 mg/dL HIGH Serum or plasma total choles terol/high density lipoprotein (HDL) cholesterol mass ratOrdered By: Shaquille Whitten on 07-02-2023 Cholesterol.total/Merna sterol in HDL [Mass ratio] 4.3 {ratio} <5.0 [facility] Sodium [Moles/volume] in Ser um or PlasmaOrdered By: Shaquille Whitten on 07-02-2023 Sodium [Moles/Vol] 136 mmol/L 136-145 [facility] Triglyceride [Mass/volume] i n Serum or PlasmaOrdered By: Shaquille Whitten on 07-02-2023 Triglyceride [Mass/Vol] 80 mg/dL 0-149 [facility] Comment on above: TRIG ATP III CLASSIF ICATIONTRIG less than 150 mg/dL NormalTRIG 150-199 mg/dL Borderline highTRIG 200-500 mg/dL High TRIG greater than 500 mg/dL Very highStandard traceable to the Center for Disease Conrtrol and Prevention (CDC) test method. Urea nitrogen [Mass/volume] in Serum or PlasmaOrdered By: Shaquille Whitten on 07-02-2023 Urea nitrogen [Mass/Vol] 18 mg/dL 03-29 [facility] WBC Auto (Bld) [#/Vol]Ordere d By: Shaquille Whitten on 07-02-2023 WBC (Bld) [#/Vol] 7.4 10*3/uL 4.1-10.5 [facility] XR knee LT 4V*on 06-12-2023 XR knee LT 4V* [facility] [place] [address] XRay Report Signed Patient: Laisha Perrin MR#: [id number] : 1960 Acct:[id number] Age/Sex: 63 / M ADM Date: 06/12/23 Loc: XDUCLY Room: Type: [facility] Attending Dr: Babs Kim APRN Copies to: [...] Sandra Duke M.D.06/12/2023 2:19 PM Dictation Location: [place] [address] Transcribed By: [facility] 06/12/23 1419 Dictated By: Sandra Duke MD 06/12/23 1418 Signed By: 06/12/23 1419 [facility] Medication Managementon 05-07 Medication Management Entered by Yon De Paz MD on May 27, 2020 13:34:43 EDT From: Yon De Paz MD To: [facility]/pharmacy #[id number] Sent: 05/27/2020 13:34:43 EDT Subject: Medication Management Documented Complete:tamsulosin (tamsulosin 0.4 mg oral capsule) Signed by Yon De Paz MD 05/27/2020 13:34:00 Approved tamsulosin (TAMSULOSIN HCL 0.4 MG CAPSULE) TAKE 1 CAPSULE BY MOUTH EVERY DAY Qty: 30 cap(s) Days Supply: 30 Refills: 10 Substitutions Allowed [id number] Patient matched by Yon De Paz MD on 05/27/2020 13:34:34 EDT From: [facility]/pharmacy #[id number] To: Yon De Paz MD, [...] Refills: 10 Substitutions Allowed Notes from Pharmacy: Normal [facility] LIPID PROFILEon 04-10-2020 CHOL-HDL RATIO NORM SEE BELOW Normal [facility] Comment on above: Result Comment: 3.3 - 4.4 LOW RISK 4.4 - 7.1 AVERAGE RISK 7.1 - 11.0 MODERATE RISK >11.0 HIGH RISK Performed By: #### C MP, LIPID, PSASC #### [facility] [address] [place], [place] [address] Fanny Sandra Cholesterol [Mass/Vol] 180 mg/dL Normal <=200 [facility] Comment on above: Performed By: #### C MP, LIPID, PSASC #### [facility] [address] [place], [place] [address] Fanny Sandra Cholesterol in HDL [Mass/Vol] 35 mg/dL Normal [facility] Comment on above: Performed By: #### C MP, LIPID, PSASC #### [facility] [address] [place], [place] [address] Fanny Sandra Cholesterol in HDL [Mass/Vol] > or = 60 mg/dl - LOW CARDIOVASCULAR RISK <40 mg/dl - HIGH CARDIOVASCULAR RISK Normal [facility] Comment on above: Performed By: #### C MP, LIPID, PSASC #### [facility] [address] [place], [place] [address] Fanny Sandra Cholesterol in LDL [Mass/Vol] 104.8 mg/dL Normal [facility] Comment on above: Performed By: #### C MP, LIPID, PSASC #### [facility] [address] [place], [place] [address] Fanny Sandra Cholesterol in LDL [Mass/Vol] SEE BELOW Normal [facility] Comment on above: Result Comment: <100 mg/dl OPTIMAL 100 - 129 mg/dl NEAR OR ABOVE OPTIMAL 130 - 159 mg/dl BORDERLINE HIGH 160 - 189 mg/dl HIGH >190 mg/dl VERY HIGH Performed By: #### C MP, LIPID, PSASC #### [facility] [address] [place], [place] [address] Fanny Sandra Cholesterol.total/Merna sterol in HDL [Mass ratio] 5.1 {ratio} Normal [facility] Comment on above: Performed By: #### C MP, LIPID, PSASC #### [facility] [address] [place], [place] [address] Fanny Sandra Triglyceride [Mass/Vol] 201 mg/dL Critically high <=150 [facility] Comment on above: Performed By: #### C MP, LIPID, PSASC #### [facility] [address] [place] [id number] Fanny Sandra VLDL CALC 40.2 mg/dL Normal [facility] Comment on above: Performed By: #### C MP, LIPID, PSASC #### [facility] [address] [place] [id number] Fanny Sandra PROF 14(COMP METB)on 020 Albumin [Mass/Vol] 3.9 g/dL Normal 3.5-5.0 [facility] Comment on above: Performed By: #### C MP, LIPID, PSASC #### [facility] [address] [place] [id number] Fanny Sandra Albumin/Globulin [Mass ratio] 1.3 {ratio} Normal [facility] Comment on above: Performed By: #### C MP, LIPID, PSASC #### [facility] [address] [place] [id number] Fanny Sandra ALP [Catalytic activity/Vol] 61 U/L Normal 38-126 [facility] Comment on above: Performed By: #### C MP, LIPID, PSASC #### [facility] [address] [place] [id number] Fanny Sandra ALT [Catalytic activity/Vol] 37 U/L Normal 21-72 [facility] Comment on above: Performed By: #### C MP, LIPID, PSASC #### [facility] [address] [place] [id number] Fanny Sandra Anion gap [Moles/Vol] 8.4 mmol/L Normal [facility] Comment on above: Performed By: #### C MP, LIPID, PSASC #### [facility] [address] [place], [place] [id number] Fanny Sandra AST [Catalytic activity/Vol] 20 U/L Normal 17-59 [facility] Comment on above: Performed By: #### C MP, LIPID, PSASC #### [facility] [address] [place] [id number] Fanny Sandra Bilirubin Ql (U) 0.7 mg/dL Normal 0.2-1.3 [facility] Comment on above: Performed By: #### C MP, LIPID, PSASC #### [facility] [address] [place] [id number] Fanny Sandra Calcium [Mass/Vol] 8.9 mg/dL Normal 8.4-10.2 [facility] Comment on above: Performed By: #### C MP, LIPID, PSASC #### [facility] [address] [place] [address] Fanny Sandra Chloride [Moles/Vol] 103 mmol/L Normal 98-107 [facility] Comment on above: Performed By: #### C MP, LIPID, PSASC #### [facility] [address] [place] [address] Fanny Sandra CO2 [Moles/Vol] 32.6 mmol/L Critically high 22.0-30.0 [facility] Comment on above: Performed By: #### C MP, LIPID, PSASC #### [facility] [address] [place] [address] Fanny Sandra Creatinine [Mass/Vol] 1.09 mg/dL Normal 0.66-1.25 [facility] Comment on above: Performed By: #### C MP, LIPID, PSASC #### [facility] [address] [place], [place] [id number] Fanny Sandra EGFR-AF [place] >60 Normal >=60 [facility] Comment on above: Performed By: #### C MP, LIPID, PSASC #### [facility] [address] [place] [address] Fanny Sandra EGFR-NON AF [place] >60 Normal >=60 [facility] Comment on above: Performed By: #### C MP, LIPID, PSASC #### [facility] [address] [place] [address] Fanny Sandra Globulin (S) [Mass/Vol] 3.1 g/dL Normal [facility] Comment on above: Performed By: #### C MP, LIPID, PSASC #### [facility] [address] [place] [address] Fanny Sandra Glucose [Mass/Vol] 105 mg/dL Normal 74-106 [facility] Comment on above: Performed By: #### C MP, LIPID, PSASC #### [facility] [address] [place], [place] [address] Fanny Sandra Potassium [Moles/Vol] 4.0 mmol/L Normal 3.4-5.0 [facility] Comment on above: Performed By: #### C MP, LIPID, PSASC #### [facility] [address] [place], [place] [address] Fanny Sandra Protein [Mass/Vol] 7.0 g/dL Normal 6.1-8.2 [facility] Comment on above: Performed By: #### C MP, LIPID, PSASC #### [facility] [address] [place] [address] Fanny Sandra Sodium [Moles/Vol] 140 mmol/L Normal 137-145 [facility] Comment on above: Performed By: #### C MP, LIPID, PSASC #### [facility] [address] [place], [place] [phone] Fanny Sandra Urea nitrogen [Mass/Vol] 13.0 mg/dL Normal 9.0-20.0 [facility] Comment on above: Performed By: #### C MP, LIPID, PSASC #### [facility] [address] [place], [place] [id number] Fanny Sandra Urea nitrogen/Creatinine [Mass ratio] 11.9 mg/mg Normal [facility] Comment on above: Performed By: #### C MP, LIPID, PSASC #### [facility] [address] [place] [address] Fanny Sandra Vital Signs Date Time Vital Sign Value Performing Clinician Facility 02-21-2023 10:35-0400 Body height 187.96 cm Allie Gould Other [facility] 02-21-2023 10:35-0400 Body mass index (BMI) [Ratio] 36.69 kg/m2 Allie Gould Other [facility] 02-21-2023 10:35-0400 Body temperature 97.7 [degF] Allie Gould Other [facility] Other 02-21-2023 10:35-0400 Body weight 129.64 kg Allie Tapiamond Other [facility] Other 02-21-2023 10:35-0400 Diastolic blood pressure 90 mm[Hg] Allie Bryanna Other [facility] Other 02-21-2023 10:35-0400 Respiratory rate 18 /min Allie Tapiamond Other [facility] Other 02-21-2023 10:35-0400 SaO2% (BldA) [Mass fraction] 97 % Allie Gould Other [facility] Other 02-21-2023 10:35-0400 Systolic blood pressure 144 mm[Hg] Allie Gould Other [facility] Other 04-30-2022 09:00-0400 Body height 187.96 cm Shaquille Whitten Other [facility] Other 04-30-2022 09:00-0400 Body mass index (BMI) [Ratio] 35.21 kg/m2 Shaquille Whitten Other [facility] Other 04-30-2022 09:00-0400 Body weight 124.42 kg Shaquille Whitten Other [facility] Other 04-30-2022 09:00-0400 Diastolic blood pressure 88 mm[Hg] Shaquille Whitten Other [facility] Other 04-30-2022 09:00-0400 Respiratory rate 18 /min Shaquille Whitten Other [facility] Other 04-30-2022 09:00-0400 SaO2% (BldA) [Mass fraction] 97 % Shaquille Whitten Other [facility] Other 04-30-2022 09:00-0400 Systolic blood pressure 138 mm[Hg] Shaquille Whitten Other [facility] Other Encounters Encounter Date Encounter Type Care Provider Facility Start: 10-24-2023 Evaluation and management of inpatient [facility] Start: 10-21-2023 Evaluation and management of inpatient [facility] Start: 10-21-2023 End: 10-25-2023 Evaluation and management of inpatient SOCORRO ESCOBAR [facility] Start: 07-02-2023 End: 07-02-2023 ambulatory Shaquille N Bret Facility:[facility] Start: 07-02-2023 End: 07-02-2023 ambulatory DO Shaquille Whitten Work Phone: [facility] Work Phone: Start: 07-02-2023 End: 07-02-2023 Patient encounter procedure DO Shaquille Whitten Work Phone: [facility] [place] Work Phone: Start: 06-12-2023 End: 06-12-2023 ambulatory Babs Kim Facility:[facility] Start: 06-12-2023 End: 06-12-2023 ambulatory DO Shaquille N Bret Work Phone: [facility] Work Phone: Start: 06-12-2023 End: 06-12-2023 Patient encounter procedure DO Shaquille Whitten Work Phone: [facility] Work Phone: Start: 05-02-2023 End: 05-02-2023 ambulatory Shaquille Whitten Other [facility] Other Start: 05-02-2023 Telephone encounter Shaquille Whitten [facility] Start: 02-21-2023 End: 02-21-2023 ambulatory Allie Gould Other [facility] Other Start: 02-21-2023 Office outpatient vi sit 15 minutes Allie Gould [facility] Start: 04-30-2022 End: 04-30-2022 ambulatory Shaquille Whitten Other [facility] Other Start: 04-30-2022 Encounter for genera l adult medical examination without abnormal findings Shaquille Whitten [facility] Start: 04-30-2022 Periodic preventive med est patient 40-64yrs Shaquille Whitten [facility] Start: 04-10-2020 End: 2020 Patient encounter procedure SHAQUILLE WHITTEN Facility:[facility] Procedures Date Procedure Procedure Detail Performing Clinician Start: 06-12-2023 Radiologic examinati on of knee DO Shaquille Whitten Work Phone: Start: 04-10-2020 [object Object] SHAQUILLE WHITTEN Comment on above: Performed By: #### C MP, LIPID, PSASC #### [facility] [address] [place], [place] [id number] Fanny Flores Immunizations Immunization Date Immunization Notes Care Provider Fa cili 07-18-2020 influenza, injectabl e, quadrivalent, preservative free Shaquille Whitten Other [facility] Other Payers Date Payer Category Payer Self-pay [id number] 1960 Unknown [id number] 1959 Unknown [id number] Unknown [id number] [id number] [id number] Unknown [id number] Social History Date Type Detail Facility Unknown if ever smoked [place] Other Sex Assigned At Sex Assigned At Bir th [place] Other Start: 1960 Sex Assigned At Male F [facility] Clinical Notes 04-30-2022 to 10-25-2023 Note Date & Type Note Facility 10-25-2023 Note Hospital Medicine Discharge Summary Final Discharge Diagnosis: Atrial fibrillation (CMS/HCC) Admission Diagnosis: Atrial fibrillation (CMS/HCC) [I48.91] Hospital course: 63 y.o. male transferred from [facility] where he presented with progressive shortness of breath palpitation and rapid heartbeat over the last 2 to 3 days patient stated that he had noticed progressive shortness of breath which started about 4 days back and became progressively worse limiting his level of activity getting severely dyspneic walking half a block he also noticed paroxysmal nocturnal dyspnea denies any increase in weight but has noticed swelling in the legs denies any fever chills sore throat he denies any chest pain in the ER he was noted to have elevated blood pressure and was found in acute atrial flutter with rapid ventricular rate was started on Cardizem drip he had a CT scan of the chest done which showed no pulmonary embolism or pneumonia he also underwent venous Doppler of the legs because of swelling of the left legbut was negative for acute DVT patient was started on IV heparin cardiology was consulted who accepted the patient to have cardioversion and left and right heart cath patient quit tobacco more than 10 years no history of alcohol dependency he had echocardiogram done which showed EF ejection fraction of 20% had global left ventricular systolic function reduction right ventricle was moderately dilated with reduced systolic function biatrial enlargement moderately elevated right ventricular systolic pressure of 49 mmHg his white count was 7.3 hemoglobin 14.4 hematocrit 43 platelet count was 217 sodium was 144 potassium 4 chloride 106 bicarb was 28 anion gap 13 BUN 21 and creatinine 1.35 ALT was 26 TSH was 1.593 # New onset A.flutter w/ RVR s/p ablation, converted to NSR: - Discharged on Toprol and Eliquis. # 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 , 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, likely nonischemic: - Discharged on Lasix, Toprol, Farxiga and spironolactone along with his lisinopril. - Repeat echo in one month. - Cardio recommended no lifevest at this time. # HTN: - Continue lisinopril. Dear Dr. Bret MD, Liasha Church is advised to follow up with you within 1-2 weeks. Follow-up with: Cardiology Scheduled appointments: Future Appointments Date Time Provider Department Center 11/02/2023 9:00 AM NOAH Tuttle [facility] Your medication list START taking these medications Instructions Last Dose Given Next Dose Due apixaban 5 mg tablet Commonly known as: Eliquis Take 1 tablet (5 mg) by mouth in the morning and at bedtime. dapagliflozin propanediol 10 mg Commonly known as: Farxiga Start taking on: October 26, 2023 Take 1 tablet (10 mg) by mouth in the morning for 30 doses. Do not start before October 26, 2023. furosemide 40 mg tablet Commonly known as: Lasix Start taking on: October 26, 2023 Take 1 tablet (40 mg) by mouth in the morning for 30 doses. Do not start before October 26, 2023. metoprolol succinate XL 25 mg 24 hr tablet Commonly known as: Toprol-XL Start taking on: October 26, 2023 Take 1 tablet (25 mg) by mouth in the morning for 30 doses. Do not crush or chew. Do not start before October 26, 2023. spironolactone 25 mg tablet Commonly known as: Aldactone Start taking on: October 26, 2023 Take 1 tablet (25 mg) by mouth in the morning for 30 doses. Do not start before October 26, 2023. CHANGE how you take these medications Instructions Last Dose Given Next Dose Due lisinopril 2.5 mg tablet Start taking on: October 26, 2023 What changed: medication strength how much to take Take 1 tablet (2.5 mg) by mouth in the morning for 30 doses. Do not start before October 26, 2023. Where to Get Your Medications These medications were sent to [facility] [address] [address] [place] [address] [place] [address], [facility] [address] apixaban 5 mg tablet dapagliflozin propanediol 10 mg furosemide 40 mg tablet lisinopril 2.5 mg tablet metoprolol succinate XL 25 mg 24 hr tablet spironolactone 25 mg tablet Laisha Church is allergic to albuterol, lactose, and salicylic acid. Disposition: Home or Self Care () Discharge Condition: Stable Code Status: Full Code Diagnostic Results Hematology: Results from last 7 days Lab Units 10/25/23 04210/24/23 0513 WBC AUTO 10*3/uL 9.33 8.44 HEMOGLOBIN g/dL 16.8 16.9 HEMATOCRIT % 49.3 49.1 MCV fL 90.5 88.9 PLATELETS AUTO 10*3/uL 259 263 Chemistry: Results from last 7 days Lab Units 10/25/23 04210/24/23 0513 10/23/23 0538 SODIUM mmol/L 135* 135* 136 POTASSIUM mmol/L 4.0 4.0 4.0 CHLORIDE mmol/L 97* 100 100 CO2 mmol/L 29 29 28 BUN mg/dL 29* 24 24 CREATININE mg/dL 1.48* 1.24 1.28 GLUCOSE mg/dL 117* 98 111* CALCIUM mg/dL 8.9 9.1 9.2 Results from l (more content not included)... [facility] 10-25-2023 Note Physical Therapy Physical Therapy Evaluation Patient Name: Ranjit Perrin : 1960 Today's Date: 10/25/2023 General Family/Caregiver Present: No Subjective: History of Present Illness Laisha Perrin is an 63 y.o. male transferred from [facility] where he presented with progressive shortness of breath palpitation and rapid heartbeat over the last 2 to 3 days patient stated that he had noticed progressive shortness of breath which started about 4 days back and became progressively worse limiting his level of activity getting severely dyspneic walking half a block he also noticed paroxysmal nocturnal dyspnea denies any increase in weight but has noticed swelling in the legs denies any fever chills sore throat he denies any chest pain in the ER he was noted to have elevated blood pressure and was found in acute atrial flutter with rapid ventricular rate was started on Cardizem drip he had a CT scan of the chest done which showed no pulmonary embolism or pneumonia he also underwent venous Doppler of the legs because of swelling of the left leg but was negative for acute DVT patient was started on IV heparin cardiology was consulted who accepted the patient to have cardioversion and left and right heart cath patient quit tobacco more than 10 years no history of alcohol dependency he had echocardiogram done which showed EF ejection fraction of 20% had global left ventricular systolic function reduction right ventricle was moderately dilated with reduced systolic function biatrial enlargement moderately elevated right ventricular systolic pressure of 49 mmHg his white count was 7.3 hemoglobin 14.4 hematocrit 43 platelet count was 217 sodium was 144 potassium 4 chloride 106 bicarb was 28 anion gap 13 BUN 21 and creatinine 1.35 ALT was 26 TSH was 1.593 PT Diagnosis: Generalized weakness, and gait abnormality. Patient Active Problem List Diagnosis Atrial fibrillation (CMS/HCC) Acute on chronic systolic heart failure (CMS/HCC) Typical atrial flutter (CMS/HCC) History reviewed. No pertinent past medical history. History reviewed. No pertinent surgical history. Precautions Pain Pain Assessment Pain Assessment: No/denies pain Cognition Cognition Overall Cognitive Status: Within Functional Limits Orientation Level: Oriented X4 Communication: Intact General Assessment General Assessment Hearing: WFLs Skin Integrity: generally unremarkable. Edema: no significant swelling noted throughout all 4 extremities distally. 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 Vision Basic Assessment Vision - Basic Assessment Current Vision: No visual deficits, Wears glasses all the time Activity Tolerance Activity Tolerance Ambulation comments: The patient ambulated 250 ft. x 1 with no device independently with no signifiacnt gait abnormalities, and no significant SOB, or fatigue. Endurance: Stage IV General Assessments Activity Tolerance Ambulation comments: The patient ambulated 250 ft. x 1 with no device independently with no signifiacnt gait abnormalities, and no significant SOB, or fatigue. Endurance: Stage IV Sensation Light Touch: No apparent deficits Proprioception Proprioception: No apparent deficits Postural Control Posture Assessment: No significant postural abnormalities. Head Control: normal Trunk Control: normal Static Sitting Balance Static Sitting-Balance Support: Feet supported, No upper extremity supported Static Sitting-Level of Assistance: Independent Dynamic Sitting Balance Dynamic Sitting-Balance Support: Feet supported Dynamic Sitting Balance-Level of Assistance: Independent Static Standing Balance Static Standing-Balance Support: No upper extremity supported Static Standing-Level of Assistance: Independent Dynamic Standing Balance Dynamic Standing-Balance Support: No upper extremity supported Dynamic Standing Balance-Level of Assistance: Independent Functional Assessments Bed Mobility Bed Mobility: No Transfers Transfer: (The patient demonstrate I with sit to stand, stand to sit transfers with no assistive device.) Extremity Assessments RUE Assessment RUE Assessment: (BUE AROM, and strength graded to be grossly WFLs throughout all major joints, and throughout the B shoulder/elbow movers.) RLE Assessment RLE Assessment: (AROM of the BLEs WFLs; strength graded at 4+-5/5 throughout the B hip/kne (more content not included)... [facility] 10-25-2023 Note Cardiology Progress Note Subjective F/U A flutter s/p ablation and HFrEF, Ranjit Perrin is a 63 y.o. male transferred from [facility] due to new onset HFrEF, atrial flutter. Assessed at bedside, pt up sitting in chair. No acute overnight events. Denied chest pain, SOB or orthopnea, overall states he feels much better. Tele- SR 70-105 BPM- PVCs Objective Patient Vitals for the past 24 hrs: BP Temp Temp src Pulse Resp SpO2 Weight 10/25/23 0600 -- -- -- -- -- -- 123 kg (270 lb 9.6 oz) 10/25/23 0355 118/86 36.3 ???C (97.3 ???F) Temporal 91 21 96 % -- 10/25/23 0005 105/78 36.4 ???C (97.5 ???F) Temporal 80 16 95 % -- 10/24/232109 119/83 -- -- 89 14 96 % -- 10/24/232039 106/78 -- -- 90 20 97 % -- 10/24/232019 112/84 -- -- 87 19 97 % -- 10/24/23 1920 109/85 36.5 ???C (97.7 ???F) Temporal 82 14 98 % -- 10/24/23 1859 113/75 -- -- 80 16 99 % -- 10/24/23 1845 (!) 116/98 -- -- 97 15 96 % -- 10/24/23 1830 98/77 -- -- 84 19 93 % -- 10/24/23 1649 -- -- -- -- -- 97 % -- 10/24/23 1647 122/84 -- -- 62 16 97 % -- 10/24/23 1115 118/84 36.5 ???C (97.7 ???F) Temporal (!) 111 19 96 % -- 10/24/23 0912 123/84 -- -- 103 -- -- -- Physical Examination: GENERAL: AOx3, in no acute distress. HEAD: Atraumatic, normocephalic. EYES: NÉSTOR, EOMI. NECK: No JVD present. CARDIAC: RRR. No murmur, rubs, or gallops. RESPIRATORY: CTAB, no increased effort of breathing. ABDOMEN: Soft, nontender, nondistended. EXTREMITIES: no lower extremity edema but multiple tortuosities compatible with significant varicose veins NEURO: No focal deficits Relevant Lab Results Latest Reference Range & Units 10/25/23 04:21 Sodium 136 - 145 mmol/L 135 (L) Potassium 3.5 - 5.1 mmol/L 4.0 Chloride 98 - 107 mmol/L 97 (L) CO2 21 - 31 mmol/L 29 Anion Gap 7 - 20 mmol/L 13 BUN 7 - 25 mg/dL 29 (H) Creatinine 0.70 - 1.30 mg/dL 1.48 (H) BUN/Creatinine Ratio 19.6 Glucose 70 - 100 mg/dL 117 (H) Calcium 8.6 - 10.3 mg/dL 8.9 EGFR >60.0 mL/min/1.73m*2 52.8 (L) Auto WBC 4.00 - 10.60 10*3/uL 9.33 RBC 4.20 - 5.70 10*6/uL 5.45 Hemoglobin 13.0 - 17.0 g/dL 16.8 Hematocrit 39.0 - 55.0 % 49.3 MCV 82.0 - 98.0 fL 90.5 MCH 27.0 - 33.0 pg 30.8 MCHC 32.0 - 35.0 g/dL 34.1 RDW 11.5 - 15.0 % 12.7 Platelets 150 - 400 10*3/uL 259 (L): Data is abnormally low (H): Data is abnormally high 10/24/23 DATE OF PROCEDURE: 10/24/2023 PERFORMING PHYSICIAN: Dr. Hernandez Mendiola WARP KNIT OPERATOR: Dr Ralph Jay CONSENT: Patient NAME OF THE PROCEDURE: Flutter ablation and Comprehensive EP study. INDICATIONS FOR PROCEDURE: Atrial flutter 10/21/23 TTE Left Ventricle: The left ventricle is normal size. Global left ventricular systolic function is severely reduced. The EF is 20 % visually. Left ventricular wall thickness is mildly increased. No regional wall motion abnormality. Right Ventricle: The right ventricle is at upper normal limits in size. Mildly reduced right ventricular systolic function. Doppler studies suggest normal right sided pressures. Left Atrium: The left atrium is mildly enlarged. Overall Conclusions: No significant valvular abnormalities No nuclear medicine results found for the past 12 months Relevant Imaging Results Assessment: atrial flutter with RVR- [id number]=7- CHF and HTN Acute on chronic heart failure with reduced ejection fraction EF 10 to 15% NYHA II Hypertension with heart failure tobacco use Plan: Remains SR s/p a flutter ablation, continue toprol and Eliquis anticoagulation uptitrate his GDMT for heart failure currently on metoprolol, Farxiga, spironolactone and lisinopril Diuresis with Lasix [address] Maury lott to repeat echocardiogram in about 1-3 months to reassess EF for improvement, continue rate/rhythm control. Possibly may be able to DC home today and F/U with [place] [facility] within 1 week with repeat BMP. Socorro Escobar RAILROAD TRACK INSPECTOR Division of Cardiology, [facility]- [phone] Pager- [phone] Email- [email or web address] 10-25-2023 Note Occupational Therapy Occupational Therapy Evaluation Patient Name: Ranjit Perrin : 1960 Today's Date: 10/25/2023 Time In: 733 Time Out: 741 Laisha Perrin is an 63 y.o. male transferred from [facility] where he presented with progressive shortness of breath palpitation and rapid heartbeat over the last 2 to 3 days patient stated that he had noticed progressive shortness of breath which started about 4 days back and became progressively worse limiting his level of activity getting severely dyspneic walking half a block he also noticed paroxysmal nocturnal dyspnea denies any increase in weight but has noticed swelling in the legs denies any fever chills sore throat he denies any chest pain in the ER he was noted to have elevated blood pressure and was found in acute atrial flutter with rapid ventricular rate was started on Cardizem drip atrial flutter with rapid ventricular response 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 , 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 General Subjective: reports he feels well, indep in room without issues and ready to d/c home Patient Active Problem List Diagnosis Atrial fibrillation (CMS/HCC) Acute on chronic systolic heart failure (CMS/HCC) Typical atrial flutter (CMS/HCC) History reviewed. No pertinent past medical history. History reviewed. No pertinent surgical history. Pain Pain Assessment Pain Assessment: No/denies pain Cognition Cognition Overall Cognitive Status: Within Functional Limits General Assessment General Assessment Hearing: (wfl) Hand Dominance: Right Home Living Home Living Type of Home: Mobile home Lives With: Alone Home Adaptive Equipment: None Home Layout: One level Home Access: Stairs to enter with rails (4) Bathroom Shower/Tub: Tub/shower unit, Walk-in shower Prior Level of Function Prior Function Level of Mel[place]: Independent with ADLs and functional transfers, Independent with homemaking with ambulation (drives , works) Prior IADLs IADL History Homemaking Responsibilities: Yes Dynamic Standing Balance Dynamic Standing Balance Dynamic Standing Balance-Level of Assistance: Independent ADL ADL LE Dressing Assistance: Independent Transfers Transfers Transfer: (in chair upon arrival, indep:: sit to stand, / standing dynamic bal / return to chair) Objective General Assessments Activity Tolerance Endurance: Stage III Vision - Basic Assessment Current Vision: No visual deficits Sensation Light Touch: No apparent deficits Coordination Movements are Fluid and Coordinated: Yes Extremity Assessments RUE Assessment RUE Assessment: Within Functional Limits LUE Assessment LUE Assessment: Within Functional Limits Outcome Assessments AM-PAC 6 Clicks Putting on and taking off regular lower body clothing?: None (Independent) Bathing(Including washing,rinsing,drying)?: None (Independent) Toileting, which includes using the toilet,bedpan,or urinal?: None (Independent) Putting on and taking off regular upper body clothing?: None (Independent) Taking care of personal grooming such as brushing teeth?: None (Independent) Eating meals?: None (Independent) Total Score OT [facility]: 24 Assessment/Plan Plan OT Plan: No skilled OT OT Discharge Recommendations: Home OT - Discharge Recommendations Placed: Yes OT Goals Multi-Disciplinary Problems (from Occupational Therapy) Active Problems Not on file [facility] 10-24-2023 Note ATRIAL FLUTTER ABLAT ION PROCEDURE NOTE DATE OF PROCEDURE: 10/24/2023 PERFORMING PHYSICIAN: Dr. Hernandez Mendiola WARP KNIT OPERATOR: Dr Ralph Jay CONSENT: Patient NAME OF THE PROCEDURE: Flutter ablation and Comprehensive EP study. INDICATIONS FOR PROCEDURE: Atrial flutter PROCEDURES PERFORMED: 1. Sonosite guided venous access as noted below and images stored in PACS. 2. Comprehensive EP study and catheter ablation for persistent atrial flutter. This includes right atrial recording and pacing, His bundle recording and right ventricular recording and pacing. 3. Intracardiac EP 3D mapping. 4. Intracardiac echocardiogram 5. Left atrial and coronary sinus recording and pacing to assess ablation results. 6. Conscious sedation. PROCEDURAL SEDATION: Versed and Fentanyl. Moderate sedation was administered by the sedation nurse under my supervision and noted in the CVL log. Intraprocedural face to face sedation time: 63min. Monitoring: Cardiac telemetry, Blood pressure, continuous pulse oxymetry. FLUOROSCOPY: NA EBL: 15cc SPECIMEN REMOVED: None INDICATION: 63 y.o. male was transferred from [facility], the patient presented there with shortness of breath, and palpitation he said he started feeling episodes of palpitation for the last 2 weeks prior to his admission, he was being treated as pneumonia, he was found to have atrial flutter, evaluation there showed elevated BNP at 700, echo was done showed drop in ejection fraction to 10 to 15%, he has known normal baseline EF, the patient was transferred to our hospital for ablation. PROCEDURE NOTE: Risks, benefits and alternatives of the procedure were discussed with the patient and family who agreed to proceed. Please refer to my consult note for details of the discussion and of indications. The patient was brought to the EP lab and a procedural pause was performed identifying the patient, the procedure. The patient presented in sinus rhythm and ICE imaging was used to rule out EYAD clot. Both the groins were then prepared and draped. Ultrasound was used to determine the course and patency of the femoral veins on both sides and they were noted to be patent and the image stored in PACS. After infiltration with 1% lidocaine, 3 venous sheaths were placed in the right. RFV: 8Fx [employer] ThermoCool SF Bi-Directional over SL1/ Vizigo, CS Catheter (EZ Steer), 9F: ICE Heparin 4000U bolus was given followed by continuous intravenous drip to target ACT around 300. An intracardiac ultrasound catheter was inserted into the right atrium to examine the right atrial anatomy, atrial septum, pulmonary vein anatomy and to monitor for pericardial effusion. At baseline, there was mild pericardial effusion and no EYAD clot. CS os was mapped using the [employer] 3D mapping software. Using ICE, the His and IVC junctions were marked with 3D CARTO mapping software. Vizigo sheath was exchanged for a short 8F sheath. Vizigo sheath was placed instead of short 8F sheath. TCL was noted to be 230ms. The ablation catheter was advanced over to the CTI. Ablation was performed on the CTI line starting at the tricuspid valve aspect. 40W was utilized and during ablation tachycardia terminated. I extended the ablation to the IVC aspect and bidirectional block was seen. Pacing from the proximal CS as well as lateral aspect of RA (172ms) confirmed this. Differential pacing also confirmed CTI block. EP study was then performed. Atrial pacing was performed from CS poles. Burst atrial pacing down to 200ms did not induce any tachycardia. Repeat EP study could no longer demonstrate any tachycardia. EP study and ablation were then stopped at this time. ICE imaging confirmed no pericardial effusion. Sheaths were pulled and hemostasis was confirmed with manual compression. ICE catheter and all catheters were removed. Venous sheaths were pulled and hemostasis noted. He was transferred to [facility]. AHms 106 HVms 54 VERPms 600/250 AV Wenkebach ms 330 AH jump ms NA AVNERP ms NA (AERP before AVNERP) AERP ms 600/200 POST PROCEDURE DIAGNOSIS 1. Symptomatic atrial flutter s/p CTI ablation. 2. EP study revealing no retrograde accessory conduction. PLAN: 1. Anticoagulation after 4 hrs of sheath removal with DOAC 2. Groin precautions. Hernandez Mendiola MD Cardiac Electrophysiology [facility] 10-24-2023 Note Hospital Medicine Daily Progress Note - 10/24/2023 2:54 PM; Room: [address] [place] [address] Admission: 10/20/2023 11:42 PM; Length of stay: 4 days THE HOSPITALIST TEAM PREFERS TO USE [employer] FOR COMMUNICATION 7AM-7PM. IF I DO NOT RESPOND WITHIN 15 MINUTES, PLEASE PAGE ME/CALL THROUGH THE FACTORY SUPERVISOR. FROM 7PM-7AM, PLEASE PAGE [phone](COVR) Code Status: Full Code Barriers to Discharge: Cardiac workup Expected Discharge Date: 10/25 ? Discharge Destination: home Overview Patient is seen for evaluation and management of A. Fib with RVR Subjective Seen today in his room, alert and in no acute distress. Denies any chest pain. Physical Exam GENERAL: AOx3, in no acute distress. HEAD: Atraumatic, normocephalic. EYES: NÉSTOR, EOMI. NECK: No JVD present. CARDIAC: Regularly, irregular RESPIRATORY: CTAB, no increased effort of breathing. ABDOMEN: Soft, nontender, nondistended. EXTREMITIES: No lower extremity edema, peripheral pulses are 2+ bilaterally. NEURO: No focal deficits Visit Vitals BP 118/84 (BP Location: Left arm, Patient Position: Lying) Pulse (!) 111 Temp 36.5 ???C (97.7 ???F) (Temporal) Resp 19 Intake/Output Summary (Last 24 hours) at 10/24/2023 1454 Last data filed at 10/24/2023 1215 Gross per 24 hour Intake 1190 ml Output 3050 ml Net -1860 ml Estimated body mass index is 34.93 kg/m??? as calculated from the following: Height as of this encounter: 1.88 m (6' 2.02 ). Weight as of this encounter: 123 kg (272 lb 2.8 oz). Active Inpatient Problems Principal Problem: Atrial fibrillation (CMS/HCC) Active Problems: Acute on chronic systolic heart failure (CMS/HCC) Typical atrial flutter (CMS/HCC) Assessment and Plan atrial flutter with rapid ventricular response 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 , 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 Essential hypertension 4. [place], prerenal Continue heparin drip for now, cardiac cath today Rate control with Lopressor Continue goal-directed medical therapy with Aldactone and farxiga Echo showed EF 20% Creatinine normalized Monitor kidney function, while on Lasix VTE Prophylaxis: IV heparin Scheduled Meds ceFAZolin, 2 g, intravenous, Once dapagliflozin propanediol, 10 mg, oral, Daily furosemide, 40 mg, oral, Daily lisinopril, 2.5 mg, oral, Daily metoprolol succinate XL, 25 mg, oral, Daily spironolactone, 25 mg, oral, Daily Pertinent Investigations Hematology: Results from last 7 days Lab Units 10/24/23 0513 10/22/23 0251 WBC AUTO 10*3/uL 8.44 7.70 HEMOGLOBIN g/dL 16.9 16.4 HEMATOCRIT % 49.1 47.5 MCV fL 88.9 90.6 PLATELETS AUTO 10*3/uL 263 242 Chemistry: Results from last 7 days Lab Units 10/24/23 0513 10/23/23 0538 10/22/23 0251 SODIUM mmol/L 135* 136 135* POTASSIUM mmol/L 4.0 4.0 3.8 CHLORIDE mmol/L 100 100 101 CO2 mmol/L 29 28 28 BUN mg/dL 24 24 21 CREATININE mg/dL 1.24 1.28 1.40* GLUCOSE mg/dL 98 111* 134* CALCIUM mg/dL 9.1 9.2 9.1 Results from last 7 days Lab Units 10/21/23 0524 AST U/L 19 ALT U/L 16 ALK PHOS U/L 44 BILIRUBIN TOTAL mg/dL 0.9 Results from last 7 days Lab Units 10/21/23 1720 POCT GLUCOSE mg/dL 173* Historical Values: (Includes values prior to this admission) No results found for: PREALBUMIN , TSH , T3FREE , FREET4 , CORTISOL , FEV1 , FII3SAJ , DLCO , RVSP , HDL , LDL No results found for: [id number] , IRON , TIBC , C3 , C4 , KALIE , CANCA , ASO , PSA , CEA , CA125 , CA199 , AFP , CA153 Imaging Complete Echo (TTE) w/wo Imaging Agent, Strain, 3D, Bubble Study 1 1 [facility] Heart Station [address] [place] [address] [phone] (fax) Echocardiogram-[facility] Name: LAISHA PERRIN Study Date: 10/21/2023 02:19 PM B/P: 112 mmHg/92 mmHg HR: 108 bpm Date of : 1960 Location: [facility] Height: 74 in. Age: 63 year(s) Patient Room: 3141 Weight: 278 lb. Gender: Male Patient Status: InPt BSA: 2.5 m2 Indication: Atrial Fibrillation, Atrial Flutter Examination: Echocardiogram (Complete) Image Quality: Fair Patient Consent: Procedure explained to patient Conclusions Left Ventricle: The left ventricle is normal size. Global left ventricular systolic function is severely reduced. The EF is 20 % visually. Left ventricular wall thickness is mildly increased. No regional wall motion abnormality. Right Ventricle: The right ventricle is at upper normal limits in size. Mildly reduced right ventricular systolic function. Doppler studies suggest normal right sided pressures. Left Atrium: The left atrium is mildly enlarged. Overall Conclusions: No significant valvular abnormalities Measurements Left Ventricle Label Value Normal Value LVOTd 2 cm (19cm - 21cm) LVOT VTI 9 cm (18cm - 22cm) LVOT PGmax 2 mmHg LVEF visual 20 % LVDd, 2D 5.73 cm (4.2cm - 5.9cm) LVDs, 2D 5.15 cm (2.1cm - 4cm) IVSd, 2D 1.29 cm (0.6cm - 1.1cm) LVPWd, 2D 1.28 cm (0.6cm - 1cm) (more content not included)... [facility] 10-24-2023 Note Patient admitted to the hospital for: A-Fib. Review of the last noted chart Echo from 10/21/2023 reports: EF 20%. Reported echo result qualifies for Cardiac Rehab services per CMS eligibility criteria. A Cardiac Rehab CHF referral diagnosis must also meet CMS criteria. Dionna Velásquez RN, BSN Cardiopulmonary Rehab Coordinator [facility] 10-24-2023 Note ---- Attestation signed by Brant Howard MD at 10/24/2023 8:32 PM I personally saw and examined the patient on the same date of service as resident/fellow Kiersten Otero. I discussed the findings and therapeutic plan with the resident/fellow Kiersten Otero. I agree with the documentation, except for any edits/updates below. Teaching Physician's Revisions: none ---- Cardiology Progress Note Subjective Subjective: Ranjit Perrin is a 63 y.o. male transferred from [facility] due to new onset HFrEF, atrial flutter. Patient was seen and examined at bedside this morning. No acute overnight events. Reports waking up at night from SOB. No chest pain. Objective Objective: Patient Vitals for the past 24 hrs: BP Temp Temp src Pulse Resp SpO2 Weight 10/24/23 0912 123/84 -- -- 103 -- -- -- 10/24/23 0725 105/78 36.6 ???C (97.8 ???F) Temporal 107 24 97 % -- 10/24/23 0600 -- -- -- -- -- -- 123 kg (272 lb 2.8 oz) 10/24/23 0440 114/87 36.5 ???C (97.7 ???F) Temporal 103 19 96 % -- 10/24/23 0010 120/76 36.6 ???C (97.9 ???F) Temporal 103 17 96 % -- 10/23/23 2110 147/79 36.6 ???C (97.9 ???F) Temporal (!) 112 20 92 % -- 10/23/23 1620 135/81 36.7 ???C (98 ???F) Temporal (!) 128 20 95 % -- Physical Examination: GENERAL: AOx3, in no acute distress. HEAD: Atraumatic, normocephalic. EYES: NÉSTOR, EOMI. NECK: No JVD present. CARDIAC: RRR. No murmur, rubs, or gallops. RESPIRATORY: CTAB, no increased effort of breathing. ABDOMEN: Soft, nontender, nondistended. EXTREMITIES: no lower extremity edema but multiple tortuosities compatible with significant varicose veins NEURO: No focal deficits Relevant Lab Results Encounter Date: 10/20/23 ECG 12 lead Result Value Ventricular Rate 97 Atrial Rate 250 QRS DURATION 116 QT Interval 382 QTC CALCULATION(BAZETT) 485 P [place] 267 R-[place] -9 T Wave [place] 64 Impression Atrial flutter with variable A-V block Cannot rule out Inferior infarct , age undetermined Abnormal ECG No previous ECGs available Confirmed by Nicky TAMEZ, L.S. (2) on 10/21/2023 6:27:14 PM No results found for: CKTOTAL , CKMB , CKMBINDEX , TROPONINI Complete Echo (TTE) w/wo Imaging Agent, Strain, 3D, Bubble Study Result Date: 10/22/2023 1 1 [facility] Heart Station [address] [facility] [place] [address] [phone] (fax) Echocardiogram-[facility] Name: LAISHA PERRIN Study Date: 10/21/2023 02:19 PM B/P: 112 mmHg/92 mmHg HR: 108 bpm Date of : 1960 Location: [facility] Height: 74 in. Age: 63 year(s) Patient Room: 3141 Weight: 278 lb. Gender: Male Patient Status: InPt BSA: 2.5 m2 Indication: Atrial Fibrillation, Atrial Flutter Examination: Echocardiogram (Complete) Image Quality: Fair Patient Consent: Procedure explained to patient Conclusions Left Ventricle: The left ventricle is normal size. Global left ventricular systolic function is severely reduced. The EF is 20 % visually. Left ventricular wall thickness is mildly increased. No regional wall motion abnormality. Right Ventricle: The right ventricle is at upper normal limits in size. Mildly reduced right ventricular systolic function.Doppler studies suggest normal right sided pressures. Left Atrium: The left atrium is mildly enlarged. Overall Conclusions: No significant valvular abnormalities Measurements Left Ventricle Label Value Normal Value LVOTd 2 cm (19cm - 21cm) LVOT VTI 9 cm (18cm - 22cm) LVOT PGmax 2 mmHg LVEF visual 20 % LVDd, 2D 5.73 cm (4.2cm - 5.9cm) LVDs, 2D 5.15 cm (2.1cm - 4cm) IVSd, 2D 1.29 cm (0.6cm - 1.1cm) LVPWd, 2D 1.28 cm (0.6cm - 1cm) LV Mass, 2D ASE 319.8 g LV Mass Index, 2D ASE 127.9 g/m?? (50g/m?? - 102.4g/m??) RWT, MM 0.45 (0 - 0.42) LVSVI, 2D 14 ml/m2 LVOT PGmean 1 mmHg LVSV_LVOT 28 ml Right Ventricle Label Value Normal Value RVDd, 2D 4.17 cm (1.9cm - 3.8cm) TAPSE 1.71 cm Left Atrium Label Value Normal Value LA Volume, BP 62 ml (18ml - 58ml) LAESV index, BP 24.8 ml/m?? Right Atrium Label Value Normal Value RA Area 27.1 cm?? Aortic Valve Label Value Normal Value AV DVI 0.59 AV VTI 15.4 cm Tricuspid Valve Label Value Normal ValueRA Pressure 3 mmHg RVSP 27 mmHg TR Vmax 2.44 m/s Aorta Label Value Normal Value AoRoot, 2D 2.6 cm (1.4cm - 3.8cm) Valvular Assessment LVOT 0.7 - 1.1 m/sec Aortic Valve 1.0 - 1.7 m/sec Mitral Valve 0.6 - 1.3 m/sec Tricuspid Valve 0.3 - 0.7 m/sec Pulmonic Valve 0.6 - 0.9 m/sec Regurgitation No Trivial Trivial Trivial Stenosis No No No No Max Velocity 0.66 m/sec 1.11 m/s 0.88 m/s Max Gradient 5.00 mmHg 3.00 mmHg Mean Gradient 3.00 mmHg Valve Area 1.9 cm?? Findings Left Ventricle: The left ventricle is normal size. Global left ventricular systolic function is severely reduced. The EF is 20 % visually. Left ventricular wall (more content not included)... [facility] 10-24-2023 Note 10/24/23 0950 Admission Assessment Questions Verify insurance with patient Yes Do you understand medical disease or what brought you into the hospital? Yes Who is your current PCP? Dr. Whitten Can I schedule a follow up appointment for you at the time of discharge? No (has an appt scheduled on Tuesday) Do you understand why you are taking your current medications? Yes Are you taking your medications as prescribed? No (doesn't always take Lisinopril - depends on BP if takes) Did patient provide teach back? No Would you like use our pharmacy i[facility] to fill your new medications at the time of Discharge? Yes Does the patient have a casework specialist assigned to them through their insurance? No Living Arrangement (Current/Prior to Hospitalization) Private residence Does the patient have history of HHC or SNF? No Assistive Device Not applicable Patient's goal for discharge home Was patient reminded that goal for discharge is 11am? Yes Does the patient have transportation at discharge? Yes Type of Residence/Post Acute Needs Private residence Is PT/OT appropriate? No Is PT/OT ordered? No Is SW consult appropriate? No Is SW consult ordered? No Do you understand the benefits of MyChart? Yes Were you able to send link and activate MyChart? MyChart already active [facility] 10-23-2023 Note Hospital Medicine Daily Progress Note - 10/23/2023 10:40 AM; Room: [address] [place] [address] Admission: 10/20/2023 11:42 PM; Length of stay: 3 days THE HOSPITALIST TEAM PREFERS TO USE [employer] CHAT FOR COMMUNICATION 7AM-7PM. IF I DO NOT RESPOND WITHIN 15 MINUTES, PLEASE PAGE ME/CALL THROUGH THE FACTORY SUPERVISOR. FROM 7PM-7AM, PLEASE PAGE [phone](COVR) Code Status: Full Code Barriers to Discharge: Cardiac workup Expected Discharge Date: Discharge Destination: home Overview Patient is seen for evaluation and management of A. Fib with RVR Subjective Seen today in his room, alert and in no acute distress. Denies any chest pain. Physical Exam GENERAL: AOx3, in no acute distress. HEAD: Atraumatic, normocephalic. EYES: NÉSTOR, EOMI. NECK: No JVD present. CARDIAC: Regularly, irregular RESPIRATORY: CTAB, no increased effort of breathing. ABDOMEN: Soft, nontender, nondistended. EXTREMITIES: No lower extremity edema, peripheral pulses are 2+ bilaterally. NEURO: No focal deficits Visit Vitals BP 124/90 (BP Location: Left arm, Patient Position: Lying) Pulse 102 Temp 36.7 ???C (98 ???F) (Temporal) Resp 19 Intake/Output Summary (Last 24 hours) at 10/23/2023 1040 Last data filed at 10/23/2023 0611 Gross per 24 hour Intake 1740 ml Output 3300 ml Net -1560 ml Estimated body mass index is 34.87 kg/m??? as calculated from the following: Height as of this encounter: 1.88 m (6' 2.02 ). Weight as of this encounter: 123 kg (271 lb 11.2 oz). Active Inpatient Problems Principal Problem: Atrial fibrillation ([facility]) Active Problems: Acute on chronic systolic heart failure ([facility]) Assessment and Plan atrial flutter with rapid ventricular response 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 , 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 Essential hypertension 4. [place], prerenal Continue heparin drip for now pending ischemic workup Tuesday Rate control with Lopressor Continue goal-directed medical therapy with Aldactone and farxiga Echo showed EF 20% Creatinine normalized Monitor kidney function, while on Lasix VTE Prophylaxis: IV heparin Scheduled Meds dapagliflozin propanediol, 10 mg, oral, Daily furosemide, 40 mg, oral, Daily lisinopril, 2.5 mg, oral, Daily metoprolol tartrate, 25 mg, oral, BID spironolactone, 25 mg, oral, Daily heparin, 0-28 Units/kg/hr, Last Rate: 14 Units/kg/hr (10/23/23 0639) Pertinent Investigations Hematology: Results from last 7 days Lab Units 10/22/23 0251 10/21/23 0524 WBC AUTO 10*3/uL 7.70 8.52 HEMOGLOBIN g/dL 16.4 15.5 HEMATOCRIT % 47.5 46.0 MCV fL 90.6 90.2 PLATELETS AUTO 10*3/uL 242 249 Chemistry: Results from last 7 days Lab Units 10/23/23 0538 10/22/23 0251 10/21/23 0524 SODIUM mmol/L 136 135* 138 POTASSIUM mmol/L 4.0 3.8 3.8 CHLORIDE mmol/L 100 101 100 CO2 mmol/L 28 28 30 BUN mg/dL 24 21 20 CREATININE mg/dL 1.28 1.40* 1.39* GLUCOSE mg/dL 111* 134* 99 CALCIUM mg/dL 9.2 9.1 8.9 Results from last 7 days Lab Units 10/21/23 0524 AST U/L 19 ALT U/L 16 ALK PHOS U/L 44 BILIRUBIN TOTAL mg/dL 0.9 Results from last 7 days Lab Units 10/21/23 1720 POCT GLUCOSE mg/dL 173* Historical Values: (Includes values prior to this admission) No results found for: PREALBUMIN , TSH , T3FREE , FREET4 , CORTISOL , FEV1 , WLE2UTD , DLCO , RVSP , HDL , LDL No results found for: CMDNNGJJ77 , IRON , TIBC , C3 , C4 , KALIE , CANCA , ASO , PSA , CEA , CA125 , CA199 , AFP , CA153 Imaging Complete Echo (TTE) w/wo Imaging Agent, Strain, 3D, Bubble Study 1 1 [facility] Heart Station [address] [id number] [phone] (fax) Echocardiogram-[facility] Name: LAISHA PERRIN Study Date: 10/21/2023 02:19 PM B/P: 112 mmHg/92 mmHg HR: 108 bpm Date of : 1960 Location: [facility] Height: 74 in. Age: 63 year(s) Patient Room: 3141 Weight: 278 lb. Gender: Male Patient Status: InPt BSA: 2.5 m2 Indication: Atrial Fibrillation, Atrial Flutter Examination: Echocardiogram (Complete) Image Quality: Fair Patient Consent: Procedure explained to patient Conclusions Left Ventricle: The left ventricle is normal size. Global left ventricular systolic function is severely reduced. The EF is 20 % visually. Left ventricular wall thickness is mildly increased. No regional wall motion abnormality. Right Ventricle: The right ventricle is at upper normal limits in size. Mildly reduced right ventricular systolic function. Doppler studies suggest normal right sided pressures. Left Atrium: The left atrium is mildly enlarged. Overall Conclusions: No significant valvular abnormalities Measurements Left Ventricle Label Value Normal Value LVOTd 2 cm (19cm - 21cm) LVOT VTI 9 cm (18cm - 22cm) LVOT PGmax 2 mmHg LVEF visual 20 % LVDd, 2D 5.73 cm (4.2cm - 5.9cm) LVDs, 2D 5.15 cm (2.1cm - 4cm) IVSd, 2D 1.29 cm (0.6cm - 1.1cm) LVPWd, 2D 1.28 cm (0.6cm - 1c (more content not included)... [facility] 10-23-2023 Note ---- Attestation signed by Brant Howard MD at 10/23/2023 2:37 PM I personally saw and examined the patient on the same date of service as resident/fellow Galdino Fischer. I discussed the findings and therapeutic plan with the resident/fellow Galdino Fischer. I agree with the documentation, except for any edits/updates below. Teaching Physician's Revisions: none ---- Cardiology Progress Note Subjective Subjective: Ranjit Perrin is a 63 y.o. male transferred from [facility] due to new onset HFrEF, atrial flutter. No acute events overnight no new complaints, telemetry reviewed patient remains in atrial flutter despite rate controlled with metoprolol. Objective Objective: Patient Vitals for the past 24 hrs: BP Temp Temp src Pulse Resp SpO2 Weight 10/23/23 0746 -- -- -- -- -- 96 % -- 10/23/23 0710 124/90 36.7 ???C (98 ???F) Temporal 102 19 96 % -- 10/23/23 0611 -- -- -- -- -- -- 123 kg (271 lb 11.2 oz) 10/23/23 0322 105/67 36.7 ???C (98.1 ???F) Temporal 98 20 96 % -- 10/22/23 2308 105/68 36.9 ???C (98.4 ???F) Temporal 103 -- 96 % -- 10/22/23 2147 120/83 -- -- (!) 113 -- -- -- 10/22/23 1926 115/87 36.7 ???C (98.1 ???F) Temporal (!) 129 22 94 % -- 10/22/23 1600 117/80 36.8 ???C (98.2 ???F) Temporal 110 18 95 % -- 10/22/23 1200 118/84 36.2 ???C (97.1 ???F) Temporal (!) 115 15 98 % -- Physical Examination: GENERAL: AOx3, in no acute distress. HEAD: Atraumatic, normocephalic. EYES: NÉSTOR, EOMI. NECK: No JVD present. CARDIAC: RRR. No murmur, rubs, or gallops. RESPIRATORY: CTAB, no increased effort of breathing. ABDOMEN: Soft, nontender, nondistended. EXTREMITIES: no lower extremity edema but multiple tortuosities compatible with significant varicose veins NEURO: No focal deficits Relevant Lab Results Encounter Date: 10/20/23 ECG 12 lead Result Value Ventricular Rate 97 Atrial Rate 250 QRS DURATION 116 QT Interval 382 QTC CALCULATION(BAZETT) 485 P [place] 267 R-[place] -9 T Wave [place] 64 Impression Atrial flutter with variable A-V block Cannot rule out Inferior infarct , age undetermined Abnormal ECG No previous ECGs available Confirmed by Nicky TAMEZ, L.S. (2) on 10/21/2023 6:27:14 PM No results found for: CKTOTAL , CKMB , CKMBINDEX , TROPONINI Complete Echo (TTE) w/wo Imaging Agent, Strain, 3D, Bubble Study Result Date: 10/22/2023 1 1 [facility] Heart Station [address] [place] [address] [phone] (fax) Echocardiogram-[facility] Name: LAISHA PERRIN Study Date: 10/21/2023 02:19 PM B/P: 112 mmHg/92 mmHg HR: 108 bpm Date of : 1960 Location: [facility] Height: 74 in. Age: 63 year(s) Patient Room: 3141 Weight: 278 lb. Gender: Male Patient Status: InPt BSA: 2.5 m2 Indication: Atrial Fibrillation, Atrial Flutter Examination: Echocardiogram (Complete) Image Quality: Fair Patient Consent: Procedure explained to patient Conclusions Left Ventricle: The left ventricle is normal size. Global left ventricular systolic function is severely reduced. The EF is 20 % visually. Left ventricular wall thickness is mildly increased. No regional wall motion abnormality. Right Ventricle: The right ventricle is at upper normal limits in size. Mildly reduced right ventricular systolic function.Doppler studies suggest normal right sided pressures. Left Atrium: The left atrium is mildly enlarged. Overall Conclusions: No significant valvular abnormalities Measurements Left Ventricle Label Value Normal Value LVOTd 2 cm (19cm - 21cm) LVOT VTI 9 cm (18cm - 22cm) LVOT PGmax 2 mmHg LVEF visual 20 % LVDd, 2D 5.73 cm (4.2cm - 5.9cm) LVDs, 2D 5.15 cm (2.1cm - 4cm) IVSd, 2D 1.29 cm (0.6cm - 1.1cm) LVPWd, 2D 1.28 cm (0.6cm - 1cm) LV Mass, 2D ASE 319.8 g LV Mass Index, 2D ASE 127.9 g/m?? (50g/m?? - 102.4g/m??) RWT, MM 0.45 (0 - 0.42) LVSVI, 2D 14 ml/m2 LVOT PGmean 1 mmHg LVSV_LVOT 28 ml Right Ventricle Label Value Normal Value RVDd, 2D 4.17 cm (1.9cm - 3.8cm) TAPSE 1.71 cm Left Atrium Label Value Normal Value LA Volume, BP 62 ml (18ml - 58ml) LAESV index, BP 24.8 ml/m?? Right Atrium Label Value Normal Value RA Area 27.1 cm?? Aortic Valve Label Value Normal Value AV DVI 0.59 AV VTI 15.4 cm Tricuspid Valve Label Value Normal ValueRA Pressure 3 mmHg RVSP 27 mmHg TR Vmax 2.44 m/s Aorta Label Value Normal Value AoRoot, 2D 2.6 cm (1.4cm - 3.8cm) Valvular Assessment LVOT 0.7 - 1.1 m/sec Aortic Valve 1.0 - 1.7 m/sec Mitral Valve 0.6 - 1.3 m/sec Tricuspid Valve 0.3 - 0.7 m/sec Pulmonic Valve 0.6 - 0.9 m/sec Regurgitation No Trivial Trivial Trivial Stenosis No No No No Max Velocity 0.66 m/sec 1.11 m/s 0.88 m/s Max Gradient 5.00 mmHg 3.00 mmHg Mean Gradient 3.00 mmHg Valve Area 1.9 cm?? Findings Left Ventricle: The left ventricle is normal size. Korin (more content not included)... [facility] 10-22-2023 Note ---- Attestation signed by Brant Howard MD at 10/22/2023 7:57 PM I personally saw and examined the patient on the same date of service as resident/fellow Galdino Fischer. I discussed the findings and therapeutic plan with the resident/fellow Galdino Fischer. I agree with the documentation, except for any edits/updates below. Teaching Physician's Revisions: none ---- Cardiology Progress Note Subjective Subjective: Ranjit Perrin is a 63 y.o. male transferred from [facility] due to new onset HFrEF, atrial flutter. No acute events overnight no new complaints, telemetry reviewed patient remains in atrial flutter despite rate controlled with metoprolol. Objective Objective: Patient Vitals for the past 24 hrs: BP Temp Temp src Pulse Resp SpO2 Weight 10/22/23 0800 113/85 36.3 ???C (97.3 ???F) Temporal (!) 129 16 99 % -- 10/22/23 0617 -- -- -- -- -- -- 124 kg (272 lb 6.4 oz) 10/22/23 0430 110/89 -- -- 106 23 94 % -- 10/21/23 2330 93/61 -- -- 95 18 94 % -- 10/21/23 2134 -- -- -- 109 -- -- -- 10/21/232019 108/81 36.7 ???C (98.1 ???F) Temporal (!) 127 (!) 31 95 % -- 10/21/23 1724 122/81 36.5 ???C (97.7 ???F) Temporal (!) 113 20 92 % -- Physical Examination: GENERAL: AOx3, in no acute distress. HEAD: Atraumatic, normocephalic. EYES: NÉSTOR, EOMI. NECK: No JVD present. CARDIAC: RRR. No murmur, rubs, or gallops. RESPIRATORY: CTAB, no increased effort of breathing. ABDOMEN: Soft, nontender, nondistended. EXTREMITIES: No lower extremity edema, peripheral pulses are 2+ bilaterally. NEURO: No focal deficits Relevant Lab Results Encounter Date: 10/20/23 ECG 12 lead Result Value Ventricular Rate 97 Atrial Rate 250 QRS DURATION 116 QT Interval 382 QTC CALCULATION(BAZETT) 485 P [place] 267 R-[place] -9 T Wave [place] 64 Impression Atrial flutter with variable A-V block Cannot rule out Inferior infarct , age undetermined Abnormal ECG No previous ECGs available Confirmed by Nicky TAMEZ, L.S. (2) on 10/21/2023 6:27:14 PM No results found for: CKTOTAL , CKMB , CKMBINDEX , TROPONINI Complete Echo (TTE) w/wo Imaging Agent, Strain, 3D, Bubble Study Result Date: 10/22/2023 1 1 [facility] Heart Station [address] [place] [address] [phone] (fax) Echocardiogram-[facility] Name: LAISHA PERRIN Study Date: 10/21/2023 02:19 PM B/P: 112 mmHg/92 mmHg HR: 108 bpm Date of : 1960 Location: [facility] Height: 74 in. Age: 63 year(s) Patient Room: 314 Weight: 278 lb. Gender: Male Patient Status: InPt BSA: 2.5 m2 Indication: Atrial Fibrillation, Atrial Flutter Examination: Echocardiogram (Complete) Image Quality: Fair Patient Consent: Procedure explained to patient Conclusions Left Ventricle: The left ventricle is normal size. Global left ventricular systolic function is severely reduced. The EF is 20 % visually. Left ventricular wall thickness is mildly increased. No regional wall motion abnormality. Right Ventricle: The right ventricle is at upper normal limits in size. Mildly reduced right ventricular systolic function.Doppler studies suggest normal right sided pressures. Left Atrium: The left atrium is mildly enlarged. Overall Conclusions: No significant valvular abnormalities Measurements Left Ventricle Label Value Normal Value LVOTd 2 cm (19cm - 21cm) LVOT VTI 9 cm (18cm - 22cm) LVOT PGmax 2 mmHg LVEF visual 20 % LVDd, 2D 5.73 cm (4.2cm - 5.9cm) LVDs, 2D 5.15 cm (2.1cm - 4cm) IVSd, 2D 1.29 cm (0.6cm - 1.1cm) LVPWd, 2D 1.28 cm (0.6cm - 1cm) LV Mass, 2D ASE 319.8 g LV Mass Index, 2D ASE 127.9 g/m?? (50g/m?? - 102.4g/m??) RWT, MM 0.45 (0 - 0.42) LVSVI, 2D 14 ml/m2 LVOT PGmean 1 mmHg LVSV_LVOT 28 ml Right Ventricle Label Value Normal Value RVDd, 2D 4.17 cm (1.9cm - 3.8cm) TAPSE 1.71 cm Left Atrium Label Value Normal Value LA Volume, BP 62 ml (18ml - 58ml) LAESV index, BP 24.8 ml/m?? Right Atrium Label Value Normal Value RA Area 27.1 cm?? Aortic Valve Label Value Normal Value AV DVI 0.59 AV VTI 15.4 cm Tricuspid Valve Label Value Normal ValueRA Pressure 3 mmHg RVSP 27 mmHg TR Vmax 2.44 m/s Aorta Label Value Normal Value AoRoot, 2D 2.6 cm (1.4cm - 3.8cm) Valvular Assessment LVOT 0.7 - 1.1 m/sec Aortic Valve 1.0 - 1.7 m/sec Mitral Valve 0.6 - 1.3 m/sec Tricuspid Valve 0.3 - 0.7 m/sec Pulmonic Valve 0.6 - 0.9 m/sec Regurgitation No Trivial Trivial Trivial Stenosis No No No No Max Velocity 0.66 m/sec 1.11 m/s 0.88 m/s Max Gradient 5.00 mmHg 3.00 mmHg Mean Gradient 3.00 mmHg Valve Area 1.9 cm?? Findings Left Ventricle: The left ventricle is normal size. Global left ventricular systolic function is severely reduced. The EF is 20 % visually. Left ventricular wall thickness is mildly increased. No regional wall motion abnormality. Right Harjit (more content not included)... [facility] 10-22-2023 Note Hospital Medicine Daily Progress Note - 10/22/2023 11:14 AM; Room: [address] [place] [address] Admission: 10/20/2023 11:42 PM; Length of stay: 2 days THE HOSPITALIST TEAM PREFERS TO USE [employer] CH[employer] FOR COMMUNICATION 7AM-7PM. IF I DO NOT RESPOND WITHIN 15 MINUTES, PLEASE PAGE ME/CALL THROUGH THE FACTORY SUPERVISOR. FROM 7PM-7AM, PLEASE PAGE [phone](COVR) Code Status: Full Code Barriers to Discharge: Cardiac workup Expected Discharge Date: Discharge Destination: home Overview Patient is seen for evaluation and management of A. Fib with RVR Subjective Seen today in his room, alert and in no acute distress Physical Exam GENERAL: AOx3, in no acute distress. HEAD: Atraumatic, normocephalic. EYES: NÉSTOR, EOMI. NECK: No JVD present. CARDIAC: Regularly, irregular RESPIRATORY: CTAB, no increased effort of breathing. ABDOMEN: Soft, nontender, nondistended. EXTREMITIES: No lower extremity edema, peripheral pulses are 2+ bilaterally. NEURO: No focal deficits Visit Vitals BP 113/85 Pulse (!) 129 Temp 36.3 ???C (97.3 ???F) (Temporal) Resp 16 Intake/Output Summary (Last 24 hours) at 10/22/2023 1114 Last data filed at 10/22/2023 1000 Gross per 24 hour Intake 1136.47 ml Output 3425 ml Net -2288.53 ml Estimated body mass index is 34.96 kg/m??? as calculated from the following: Height as of this encounter: 1.88 m (6' 2.02 ). Weight as of this encounter: 124 kg (272 lb 6.4 oz). Active Inpatient Problems Principal Problem: Atrial fibrillation ([facility]) Assessment and Plan atrial flutter with rapid ventricular response 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 , 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 Essential hypertension 4. EVERETT ? Baseline ? Continue heparin drip for now pending ischemic workup Rate control with Lopressor Continue goal-directed medical therapy with Aldactone and farxiga Echo showed EF 20% Monitor kidney function, while on Lasix VTE Prophylaxis: IV heparin Scheduled Meds dapagliflozin propanediol, 10 mg, oral, Daily furosemide, 40 mg, intravenous, Daily metoprolol tartrate, 25 mg, oral, BID spironolactone, 25 mg, oral, Daily heparin, 0-28 Units/kg/hr, Last Rate: 14 Units/kg/hr (10/22/23 0203) Pertinent Investigations Hematology: Results from last 7 days Lab Units 10/22/23 0251 10/21/23 0524 WBC AUTO 10*3/uL 7.70 8.52 HEMOGLOBIN g/dL 16.4 15.5 HEMATOCRIT % 47.5 46.0 MCV fL 90.6 90.2 PLATELETS AUTO 10*3/uL 242 249 Chemistry: Results from last 7 days Lab Units 10/22/23 0251 10/21/23 0524 SODIUM mmol/L 135* 138 POTASSIUM mmol/L 3.8 3.8 CHLORIDE mmol/L 101 100 CO2 mmol/L 28 30 BUN mg/dL 21 20 CREATININE mg/dL 1.40* 1.39* GLUCOSE mg/dL 134* 99 CALCIUM mg/dL 9.1 8.9 Results from last 7 days Lab Units 10/21/23 0524 AST U/L 19 ALT U/L 16 ALK PHOS U/L 44 BILIRUBIN TOTAL mg/dL 0.9 Results from last 7 days Lab Units 10/21/23 1720 POCT GLUCOSE mg/dL 173* Historical Values: (Includes values prior to this admission) No results found for: PREALBUMIN , TSH , T3FREE , FREET4 , CORTISOL , FEV1 , CLR8HLP , DLCO , RVSP , HDL , LDL No results found for: [id number] , IRON , TIBC , C3 , C4 , KALIE , CANCA , ASO , PSA , CEA , CA125 , CA199 , AFP , CA153 Imaging Complete Echo (TTE) w/wo Imaging Agent, Strain, 3D, Bubble Study 1 1 [facility] Heart Station [address] [place] [address] [phone] (fax) Echocardiogram-[facility] Name: LAISHA PERRIN Study Date: 10/21/2023 02:19 PM B/P: 112 mmHg/92 mmHg HR: 108 bpm Date of : 1960 Location: [facility] Height: 74 in. Age: 63 year(s) Patient Room: 3141 Weight: 278 lb. Gender: Male Patient Status: InPt BSA: 2.5 m2 Indication: Atrial Fibrillation, Atrial Flutter Examination: Echocardiogram (Complete) Image Quality: Fair Patient Consent: Procedure explained to patient Conclusions Left Ventricle: The left ventricle is normal size. Global left ventricular systolic function is severely reduced. The EF is 20 % visually. Left ventricular wall thickness is mildly increased. No regional wall motion abnormality. Right Ventricle: The right ventricle is at upper normal limits in size. Mildly reduced right ventricular systolic function. Doppler studies suggest normal right sided pressures. Left Atrium: The left atrium is mildly enlarged. Overall Conclusions: No significant valvular abnormalities Measurements Left Ventricle Label Value Normal Value LVOTd 2 cm (19cm - 21cm) LVOT VTI 9 cm (18cm - 22cm) LVOT PGmax 2 mmHg LVEF visual 20 % LVDd, 2D 5.73 cm (4.2cm - 5.9cm) LVDs, 2D 5.15 cm (2.1cm - 4cm) IVSd, 2D 1.29 cm (0.6cm - 1.1cm) LVPWd, 2D 1.28 cm (0.6cm - 1cm) LV Mass, 2D ASE 319.8 g LV Mass Index, 2D ASE 127.9 g/m?? (50g/m?? - 102.4g/m??) RWT, MM 0.45 (0 - 0.42) LVSVI, 2D 14 ml/m2 LVOT PGmean 1 mmHg LVSV_LVOT 28 ml Right Ventricle Label Value Normal Value RVDd, 2D 4.17 cm (1.9cm - 3 (more content not included)... 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 Patient Information Primary Caregiver Self Activities of Daily Living Assistive Device Not applicable (Pt stating none) Living Arrangement (Current/Prior to Hospitalization) Private residence (Patient stating lives alone in his single-story home (with his dog); daughter lives 1 mile away) Behavior Oriented Communication Talks;Understands speaking Referral To Financial Resources (Patient expressing finances are tight and may consider getting into his 401K; advertising writer sending referral to [facility] for resources to ensure access to any eligible programs) Discharge Planning Support Systems Children (Pt stating his daughter lives 1 mile away; stating daughter is transportation home) Type of Residence/Post Acute Needs Private residence Patient's goal for discharge home Does the patient need discharge transport arranged? No (Pt stating daughter is transport) Patient stating no DME in use in the home; Patient stating no C service history. Patient stating PCP is Dr. Olivares. Patient stating he is very active in AA and has maintained sobriety for many years. [facility] 10-21-2023 Note Hospital Medicine History and Physical 10/21/2023 12:18 AM THE HOSPITALIST TEAM PREFERS TO USE [employer] CHAT FOR COMMUNICATION 7AM-7PM. IF I DO NOT RESPOND WITHIN 15 MINUTES, PLEASE PAGE ME/CALL THROUGH THE FACTORY SUPERVISOR. FROM 7PM-7AM, PLEASE PAGE [phone](COVR) Chief Complaint No chief complaint on file. History of Present Illness Laisha Perrin is an 63 y.o. male transferred from [facility] where he presented with progressive shortness of breath palpitation and rapid heartbeat over the last 2 to 3 days patient stated that he had noticed progressive shortness of breath which started about 4 days back and became progressively worse limiting his level of activity getting severely dyspneic walking half a block he also noticed paroxysmal nocturnal dyspnea denies any increase in weight but has noticed swelling in the legs denies any fever chills sore throat he denies any chest pain in the ER he was noted to have elevated blood pressure and was found in acute atrial flutter with rapid ventricular rate was started on Cardizem drip he had a CT scan of the chest done which showed no pulmonary embolism or pneumonia he also underwent venous Doppler of the legs because of swelling of the left leg but was negative for acute DVT patient was started on IV heparin cardiology was consulted who accepted the patient to have cardioversion and left and right heart cath patient quit tobacco more than 10 years no history of alcohol dependency he had echocardiogram done which showed EF ejection fraction of 20% had global left ventricular systolic function reduction right ventricle was moderately dilated with reduced systolic function biatrial enlargement moderately elevated right ventricular systolic pressure of 49 mmHg his white count was 7.3 hemoglobin 14.4 hematocrit 43 platelet count was 217 sodium was 144 potassium 4 chloride 106 bicarb was 28 anion gap 13 BUN 21 and creatinine 1.35 ALT was 26 TSH was 1.593 Review of System and Physical Exam Temp: [36.7 ???C (98.1 ???F)] 36.7 ???C (98.1 ???F) Heart Rate: [96] 96 Resp: [20] 20 BP: (124)/(92) 124/92 Physical Exam Constitutional: Appearance: Normal appearance. He is normal weight. HENT: Head: Normocephalic and atraumatic. Right Ear: Tympanic membrane, ear canal and external ear normal. Left Ear: Tympanic membrane, ear canal and external ear normal. Nose: Nose normal. Mouth/Throat: Mouth: Mucous membranes are moist. Pharynx: Oropharynx is clear. Eyes: Extraocular Movements: Extraocular movements intact. Conjunctiva/sclera: Conjunctivae normal. Pupils: Pupils are equal, round, and reactive to light. Cardiovascular: Rate and Rhythm: Normal rate. Rhythm irregular. Pulses: Normal pulses. Heart sounds: Murmur heard. Pulmonary: Effort: Pulmonary effort is normal. Breath sounds: Normal breath sounds. Abdominal: General: Abdomen is flat. Bowel sounds are normal. Palpations: Abdomen is soft. Musculoskeletal: General: Normal range of motion. Cervical back: Normal range of motion and neck supple. Right lower leg: Edema present. Skin: General: Skin is warm and dry. Capillary Refill: Capillary refill takes less than 2 seconds. Neurological: General: No focal deficit present. Mental Status: He is alert and oriented to person, place, and time. Psychiatric: Mood and Affect: Mood normal. Behavior: Behavior normal. Review of Systems Constitutional: Positive for activity change and fatigue. HENT: Negative. Eyes: Negative. Respiratory: Positive for shortness of breath. Negative for apnea, cough, choking, chest tightness, wheezing and stridor. Cardiovascular: Positive for leg swelling. Negative for chest pain and palpitations. Gastrointestinal: Negative. Endocrine: Negative. Genitourinary: Negative. Musculoskeletal: Negative. Allergic/Immunologic: Negative. Neurological: Negative. Hematological: Negative. Psychiatric/Behavioral: Negative. Problem List Patient Active Problem List Diagnosis Date Noted Atrial fibrillation ([facility]) 10/21/2023 Assessment and Plan Atrial flutter/fibrillation with rapid ventricular response chads 2-VASc score 2 heart rate currently controlled continue metoprolol because of low ejection fraction will hold Cardizem unless heart rate goes up , will need JOSELO,continue telemetry we will check magnesium repeat labs in the morning including CBC and blood chemistry cardiology planning for cardioversion for now continue heparin will notify cardiology regarding cessation of heparin in the morning prior to procedure will need to transfer him to direct oral anticoagulation postprocedure as per cardiology recommendations Heart failure with reduced ejection fraction NYHA II CHF core measures in place GDMT in place ,continue beta-joseph lisinopril Aldactone add Farxiga serial electrolytes creatinine low-salt diet. Hypertension continue medications DVT prophylaxis already on IV (more content not included)... [facility] 02-21-2023 Evaluation note Encounter Date Diagnosis Assessment [...] Wound infection home care material was printed [facility] Other 08-26-2022 Evaluation note* Encounter Date Diagnosis Assessment Notes Treatment Notes Treatment Clinical Notes Apr, Well adult exam (ICD-10 - Z00.00) 62-year-old male who is doing very well and is not on any prescribed medication but is on a bunch of geyq-uwg-itnivow supplements. His lab work was reviewed with [...] arises. Apr, Essential hypertension (ICD-10 - I10) Apr, Skin tag (ICD-10 - L91.8) [facility] Other Evaluation noteNo InformationNort [facility]ong[facility]ou Other Evaluation noteNo assessment information available [facility] Work Phone: History general Narrative - Reported* Type Description Date Medical History Seasonal allergic rh initis, unspecified chronicity, unspecified trigger Medical History heart arrythmia x 1 occurance Medical History Remote history of alcoholism and drug abuse Medical History LUNG NODULES/ [...] Hospitalization History see above Hospitalization History PNEUMONIA [facility] Other Summary Purpose Family History No Family [...] Records FoundNo Status Records FoundNo Status Records FoundNo Status Records Found INFORMATION SOURCE (unrecogn ized section and content) DATE CREATED AUTHOR 04/19/2020 [facility] DATE CREATED AUTHOR AUTHOR'S ORGANIZ ATION 05/27/2020 [facility] DATE CREATED AUTHOR AUTHOR'S ORGANIZ ATION 07/04/2023 [facility] DATE CREATED AUTHOR AUTHOR'S ORGANIZ ATION 10/26/2023 [facility] REASON FOR VISIT (unrecogniz ed section and content) WELL ADULT/1 YEAR FOLLOWiNFE CTED LEFT FOOT, SHOE RUBBED HOLE AND MADE A OREmissed appt Care Teams (unrecognized sec tion and content) Team Status: Active Member Role Status Dates Shaquille Whitten , DO Primary Care Provider Active Team Status: Inactive Member Role Status Dates Shaquille Whitten , DO Primary Care Provider Active Babs Kim APRN Attending Provider Active Team Status: Inactive Member Role Status Dates Shaquille Whitten , DO Primary Care Provider, Attending Provider [...] BE BASED ON THE PRIMARY CLINICAL RECORDS. [employer] provides no warranty or guarantee of the accuracy or completeness of information in this document.
[2023-10-27 14:35] LABS: Anion Gap 9.5; BUN Creatinine Ratio 22.8; Calcium 8.8 mg/dL (8.5-10.1); Carbon Dioxide 33.1 mmol/L (21.0-32.0); Chloride 97 mmol/L (98-107); Estimated GFR (African America 60 (>=60); Estimated GFR (Non-African Ame 49 (>=60); Glucose 101 mg/dL (74-106); Magnesium 2.1 mg/dL (1.8-2.4); Potassium 4.6 mmol/L (3.5-5.1); Sodium 135 mmol/L (136-145)
== END 2023-10-27 14:01 | disposition home or self-care (01) ==
LOC: LAB 14:02
PROVIDERS: Visit Provider Nurse Practitioner
DX: I50.23 Acute on chronic systolic (congestive) heart failure (principal)
CPT/HCPCS: 36415; 80048; 83735

== ENCOUNTER 2023-12-09 12:52 | Outpatient (OUT) | payer BC, SELFPAY ==
--- NOTE | 2023-12-09 13:00 | CA_ITS ---
Patient Name: LAISHA PERRIN MR#: [id number] : 1960 Exam Date: 12/09/2023 Ordering Doctor: PHILIP JON ECHOCARDIOGRAM REPORT PROCEDURE: CA ECHO DOPPLER COMPLETE INDICATIONS: Chronic congestive heart failure, hypertension, h/o ablation COMPARISON: None. DESCRIPTION: COMPLETE ECHOCARDIOGRAM Real-time transthoracic echocardiography with 2D, M-mode, spectral and color flow Doppler performed. QUALITY: Technical quality was good. 74 , 270#, BSA 2.47 m2, BP 132/74 LEFT VENTRICLE: Normal chamber size. Mild concentric left ventricular hypertrophy. Systolic function is mildly reduced. LV EF: Mildly reduced left ventricular ejection fraction, (45-50%). DIASTOLIC: Grade I diastolic dysfunction. ATRIAL SEPTUM: Visually appears intact. LEFT ATRIUM: Mildly dilated. RIGHT ATRIUM: Normal chamber size. RIGHT VENTRICLE: Normal chamber size. Normal right ventricular systolic function. TRICUSPID VALVE: Normal mobility and thickness. No stenosis with trivial regurgitation. Doppler studies reveal mildly (35-45) elevated right sided pressures. RVSP 37 mmHg MITRAL VALVE: Normal mobility and thickness. No evidence of mitral valve stenosis. There is no mitral annular calcification. Trivial mitral regurgitation. AORTIC VALVE: Normal trileaflet appearance. No visible sclerosis. Normal leaflet mobility. No evidence of aortic valve stenosis. No aortic regurgitation. AORTIC ROOT: Normal diameter and appearance. PULMONIC VALVE: Normal thickness and mobility. No stenosis. Mild regurgitation. PERICARDIUM: No evidence of pericardial effusion. IVC: Collapses with inspirations. PLEURA: CONCLUSION: 1. The left ventricle is normal in size and exhibits mild concentric hypertrophy. Global systolic function is mildly reduced. Estimated LVEF is 45 to 50%. 2. Normal right ventricular size and systolic function. 3. No significant valvular dysfunction. 4. Midly dilated left atrium. 5. Mildly elevated right-sided pressures. Adult Echocardiography Procedure Report Left Ventricle LVEDD (3.7 - 5.6 cm): 5.06 cm LVESD (2.2 - 4.0 cm): 3.32 cm LVIVS thickness (0.6 - 1.2 cm): 1.24 cm LVPW thickness (0.5 - 1.0 cm): 1.20 cm e': 0.10 m/s E - e': 6.48 LVOT Max Gradient: 4.73 mm[Hg] LVOT Area (cm2): 1.09 m/s Peak Velocity (LVOT): 1.09 m/s Mean Velocity (LVOT): 0.71 m/s LVOT Diameter 2.35 cm Left Atrium LA Volume Index (2D A2C): 27.49 ml/m2 Left Atrium Systolic Dimension: 3.88 cm Mitral Valve MV E to A Ratio: 0.88 Mitral Valve A-Wave Peak Velocity: 0.71 m/s Mitral Valve E-Wave Peak Velocity: 0.62 m/s Right Ventricle Aorta AO Root Diam: 3.49 cm Aortic Valve AoV Area (Peak Ángel): 3.84 cm2, 3.84 cm2 AoV Area (VTI): 3.63 cm2, 3.63 cm2 Peak Velocity(Antegrade Flow): 1.22 m/s Peak Gradient(Antegrade Flow): 6.00 mm[Hg] Mean Velocity(Antegrade Flow): 0.88 m/s Mean Gradient(Antegrade Flow): 3.47 mm[Hg] Velocity Time Integral: 21.70 cm Tricuspid Valve Peak Velocity (Regurgitant Flow): 2.90 m/s Pulmonic Valve Mean Gradient: 3.22 mm[Hg] Mean Velocity: 0.82 m/s Peak Velocity: 1.47 m/s, 1.14 m/s Peak Gradient: 5.24 mm[Hg], 8.61 mm[Hg] Right Atrium Right Atrium Systolic Pressure: 56.55 ml, 56.55 ml Dictated by: Brant Howard M.D. on 12/09/2023 at 16:46 Approved by: Brant Howard M.D. on 12/09/2023 at 16:52
--- OUTSIDE RECORDS SUMMARY | 2023-12-09 13:19 | XMS_ITS | CCD ---
Author Organization [facility] Care Team Providers Care Csm Consultant Name Role Phone SHAQUILLE WHITTEN Admitting Unavailable SHAQUILLE WHITTEN Attending Unavailable SHAQUILLE WHITTEN Primary Care Unavailable SHAQUILLE WHITTEN Consulting Unavailable Shaquille Whitten Unavailable Allie Gould Unavailable DO Shaquille Whitten Primary Care Provider SAMANTHA Kim Attending Provider [phone] DO Shaquille Whitten Attending Provider DO Shaquille Whitten Primary Care Provider MD Shaquille Alarcon Attending Provider [phone] Shaquille Whitten Primary Care Unavailable Babs Kim Admitting Unavailable Babs Kim Attending Unavailable Shaquille Whitten Admitting Unavailable Shaquille Whitten Primary Care Unavailable Shaquille Whitten Attending Unavailable Shaquille Alarcon Attending Unavailabl e Shaquille Whitten Primary Care Unavailable Shaquille Alarcon Admitting Unavailabl e DELMY, HANI Referring Unavailable DELMY, HANI Referring Unavailable LUZCARLOTTA Iqbal Referring Unavailable MILADY, ANTONIO Admitting Unavailable NATALIA KELLY Attending Unavailable RAVEN MOREIRA Attending Unavailable DELMY, HANI Referring Unavailable Allergies Allergy Classification Reported Allergen(s) Allergy Type Date of Onset Reaction(s) Facility (5 sources) Albuterol; Translations: [ALBUTEROL] Drug Allergy 10-24-19 [facility] (5 sources) Aspirin; Translations: [ASPIRIN] Drug Allergy 10-31-19 Unknown, Unknown Reaction [facility] (5 sources) Azithromycin; Translations: [AZITHROMYCIN] Drug Allergy 10-31-19 heart arythmia [facility] (3 sources) DAIRY Propensity to adverse reactions DIARRHEA [employer] Other (2 sources) Milk; Translations: [milk] Allergy to substance 11-10-19 DIARRHEA [facility] (1 source) Albuterol Drug Allergy 11-10-19 [facility] Repository (1 source) Aspirin Drug Allergy 11-10-19 [facility] Repository (1 source) Azithromycin Drug Allergy 11-10-19 [facility] Repository (1 source) Lactose; Translations: [LACTOSE] Drug Allergy 10-24-19 [facility] Repository (1 source) Salicylic Acid; Translations: [SALICYLIC ACID] Drug Allergy 10-24-19 [facility] Repository (1 source) ALLERGIES NOT ON FILE; Translations: [ALLERGIES NOT ON FILE] Propensity to adverse reactions (disorder) [facility] Repository Medications Current Medications Medication Drug Class(es) Dates Sig (Normalized) Sig (Original) 5-HTP 200 MG (3 sources) 5-HTP 200 MG as directed Orally Active apixaban 5 mg oral tablet (3 sources) Factor Xa Inhibitor Start: 11-10-2023 Apixaban (Eliquis) 5 mg tablet Active 5 MG PO November 10, 2023 1:00am Start: 10-28-2023 End: 11-10-2023 take 2.5 mg by mouth twice daily Apixaban Discontinued 2.5 MG PO Twice daily October 28, 2023 1:00am November 10, 2023 9:42am Ashwagandha (3 sources) Ashwagandha 5200 mg Active clindamycin 300 mg oral capsule (2 sources) Lincosamide Antibacterial Start: 02-22-20 take 1 capsule by mouth every eight hours Clindamycin HCl 300 MG 1 cap(s) Orally tid for 10 day(s) Feb, Active dapagliflozin 10 mg oral tablet (2 sources) Sodium-Glucose Cotransporter 2 Inhibitor Start: 10-28-19 take 1 tablet by mouth once daily Dapagliflozin Propanediol (Farxiga) 10 mg tablet Active 10 MG PO Daily October 28, 2023 1:00am fluticasone propionate 0.05 mg/actuat metered dose nasal spray (2 sources) Corticosteroid Start: 10-28-19 take 1 spray(s) nasal route once daily Fluticasone Propionate (Flonase Allergy Relief) 50 mcg/actuation spray,suspension Active 1 SPRAY INTRANASAL Daily October 28, 2023 1:00am [employer] spray in each nostril Nasally Once a day; Note: Source Status: Refill; Refills: 3; Provider: James Norton furosemide 40 mg oral tablet (2 sources) Loop Diuretic Start: 10-28-19 take 40 mg by mouth once daily Furosemide Active 40 MG PO Daily October 28, 2023 1:00am L-Arginine (3 sources) L-Arginine Activ e lisinopril 2.5 mg oral tablet (7 sources) Angiotensin Converting Enzyme Inhibitor Start: 10-28-19 take 2.5 mg by mouth once daily Lisinopril Active 2.5 MG PO Daily October 28, 2023 1:00am Start: 10-28-2023 End: 10-28-2023 take 1 tablet by mouth once daily Lisinopril Discontinued 20 MG PO Daily October 28, 2023 1:00am October 28, 2023 11:38am [employer] tablet Orally Once a day; Note: Source Status: RefillPRN; Refills: 3; Qty: 90 Tablet; Provider: Bret Luhter Start: 11-23-2017 take 1 tablet by [facility] every twenty-four hours Lisinopril 20 MG 1 tablet Orally Once a day for 90 day(s) PRN Nov, Not-Taking Magnesium glycinate (3 sources) Magnesium Glycin ate Active 24 hr metoprolol succinate 25 mg extended release oral tablet (2 sources) beta-Adrenergic Joseph Start: 10-28-19 take 25 mg by mouth once daily Metoprolol Succinate Active 25 MG PO Daily October 28, 2023 1:00am [place] 3 1000 MG (3 sources) take 1 capsule by mouth once daily [place] 3 1000 MG 1 capsule Orally Once a day Active spironolactone 25 mg oral tablet (2 sources) Aldosterone Antagonist Start: 02-23-20 24 take 25 mg by mouth once daily Spironolactone Active 25 MG PO Daily October 28, 2023 1:00am Turmeric Curcumin 500 MG (3 sources) take 3 tablets by mouth once daily Turmeric Curcumin 500 MG 3 tab Orally DAILY Active Vitamin D3 250 MCG (84151 UT) (2 sources) Vitamin D3 250 M CG (46758 UT) as directed Orally Active Vitamin K2 100 MCG (3 sources) Vitamin K2 100 M CG as directed Orally Active Completed/Discontinued Medications Medication Drug Class(es) Dates Sig (Normalized) Sig (Original) ashwagandha extract (2 sources) Start: 10-28-2023 End: 10-28-2023 ashwagandha extract Discontinued PO October 28, 2023 1:00am October 28, 2023 11:40am Start: 10-28-2023 End: 10-28-2023 ashwagandha extract Disconti nued PO October 28, 2023 12:00am October 28, 2023 10:40am cholecalciferol 0.25 mg oral capsule (3 sources) Vitamin D Start: 10-28-2023 End: 10-28-2023 take 250 ug by mouth once daily Cholecalciferol (Vitamin D3) Discontinued 250 MCG PO Daily October 28, 2023 1:00am October 28, 2023 11:40am Vitamin D3 250 M CG (00504 UT) as directed Orally Active Linn Bergamot (3 sources) Linn Bergamot 1000 mg Not-Taking Linn Bergamot 1000 mg Active Creatine (2 sources) Start: 10-28-2023 End: 10-28-2023 creatine monohydrate Discont inued PO October 28, 2023 1:00am October 28, 2023 11:40am Start: 10-28-2023 End: 10-28-2023 creatine monohydrate Discont inued PO October 28, 2023 12:00am October 28, 2023 10:40am [place]-3 Fatty Acids (2 sources) Start: 10-28-2023 End: 10-28-2023 take 1000 mg by mouth once daily [place]-3 Fatty Acids Discontinued 1000 MG PO Daily October 28, 2023 1:00am October 28, 2023 11:40am Start: 10-28-2023 End: 10-28-2023 take 1000 mg by mouth once daily [place]-3 Fatty Acids Discontinued 1000 MG PO Daily October 28, 2023 12:00am October 28, 2023 10:40am Testosterone (3 sources) Androgen Testosterone OTC Not-Taking Testosterone OTC Active Turmeric Root Extract (2 sources) Start: 10-28-2023 End: 10-28-2023 take 500 mg by mouth once daily Turmeric Root Extract Discontinued 500 MG PO Daily October 28, 2023 1:00am October 28, 2023 11:40am Start: 10-28-2023 End: 10-28-2023 take 500 mg by mouth once daily Turmeric Root Extract Discontinued 500 MG PO Daily October 28, 2023 12:00am October 28, 2023 10:40am vitamin K2 (2 sources) Start: 10-28-2023 End: 10-28-2023 Vitamin K2 (Mk-4) Discontinu ed MCG PO October 28, 2023 1:00am October 28, 2023 11:40am Start: 10-28-2023 End: 10-28-2023 Vitamin K2 (Mk-4) Discontinu ed MCG PO October 28, 2023 12:00am October 28, 2023 10:40am zinc gluconate 100 mg oral tablet (2 sources) Start: 10-28-2023 End: 10-28-2023 take 100 mg by mouth once daily Zinc Gluconate Discontinued 100 MG PO Daily October 28, 2023 1:00am October 28, 2023 11:40am Problems Active Problems Problem Classification Problem Date Documented Da te Episodic/Chronic Cardiac dysrhythmias (10 sources) Atrial fibrillation; Translations: [Unspecified atrial fibrillation] Onset: 10-21-2023 10-28-2023 Chronic Chronic ulcer of skin (3 sources) [...] Prediabetes; Translations: [PREDIABETES] Onset: 04-18-2020 Essential hypertension (8 sources) Essential (primary) hypertension; Translations: [Essential hypertension] Onset: 04-18-2020 Resolved: 04-30-2022 Chronic Malaise and fatigue (5 sources) Fatigue; Translations: [Chronic fatigue, unspecified] 10-28-2023 Chronic Other inflammatory condition of skin (5 sources) Scalp psoriasis; Translations: [Psoriasis, unspecified] 10-28-2023 Chronic Other lower respiratory disease (2 sources) Nodule of lung; Translations: [Solitary pulmonary nodule] 10-28-2023 Episodic Other nutritional; endocrine; and metabolic disorders (4 sources) Disorder of lipoprotein metabolism, unspecified; 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 UNS] Onset: 04-10-2020 Chronic Other nutritional; endocrine; and metabolic disorders (5 sources) Body mass index 30+ - obesity; Translations: [Body mass index (BMI) 30.0-30.9, adult] 10-28-2023 Chronic Other upper respiratory disease (3 sources) Allergic rhinitis; Translations: [Allergic rhinitis, unspecified] Chronic Other upper respiratory disease (2 sources) Seasonal allergic rhinitis; Translations: [Other seasonal allergic rhinitis] 10-28-2023 Chronic Other upper respiratory infections (3 sources) Chronic frontal sinusitis; Translations: [Chronic frontal sinusitis] Chronic Residual codes; unclassified (3 sources) History of partial resection of colon; Translations: [Acquired absence of other specified parts of digestive tract] Episodic Residual codes; unclassified (2 sources) History of colectomy; Translations: [Acquired absence of other specified parts of digestive tract] 10-28-2023 Episodic Skin and subcutaneous tissue infections (1 source) Cellulitis of left lower limb Episodic Unclassified (1 source) Pain in left knee; Translations: [Pain in left knee] Onset: 06-12-2023 Varicose veins of lower extremity (6 sources) Varicose veins of lower extremity; Translations: [Varicose veins of bilateral lower extremities with pain] Onset: 11-25-2023 10-28-2023 Episodic Past or Other Problems Problem Classification Problem Date Documented Date Episodic/Chronic Diabetes mellitus without complication (1 source) Prediabetes; Translations: [Prediabetes] Onset: 07-02-2023 Episodic Other aftercare (1 source) Encounter for therapeutic drug level monitoring; Translations: [Encounter for therapeutic drug level monitoring] Onset: 10-28-2023 Episodic Other screening for suspected conditions (not mental disorders or infectious disease) (2 sources) Encounter for screening for malignant neoplasm of prostate; Translations: [Encounter for screening for cardiovascular disorders] Onset: 04-18-2020 Episodic Other skin disorders (1 source) Other hypertrophic disorders of the skin Onset: 04-30-2022 Resolved: 04-30-2022 Episodic Results Test Name Value Interpretation Reference Range Facility Orders Onlyon 12-01-2023 Orders Only [id number] Ulises Perrin 1960 M Date Provider Department Center 12/01/2023 JENY CROUCH CARD [facility] Family History Problem Relation Age of Onset Atrial fibrillation Father Family Status - Relation Status Age at Father Normal [facility] US venous duplex LE BIon US venous duplex LE BI [facility] [place] [address] Ultrasound Report Signed Patient: Ulises Perrin MR#: [id number] : 1960 Acct:[id number] Age/Sex: 63 / M ADM Date: 11/25/23 Loc: Room: Type: [facility] Attending Dr: Shaquille Alarcon MD Ordering Provider: Shaquille Alarcon MD Date of Service: 11/25/23 US/US venous duplex LE BI: I83.813 - Varicose veins of bilateral lower extremities w... Copies to: Shaquille Alarcon MD BILATERAL LOWER EXTREMITY VENOUS DUPLEX INDICATION: Symptomatic varicose veins bilaterally with edema. PROCEDURE: Color-flow duplex scanning is used to interrogate the deep venous system of the right and left lower extremities. The common femoral vein, femoral vein and popliteal vein show good compressibility with normal proximal and distal augmentation. The calf veins are compressible. US/US venous duplex LE BI IMPRESSION: NO EVIDENCE FOR DEEP VEIN THROMBOSIS OR PROXIMAL SUPERFICIAL THROMBOPHLEBITIS IN THE RIGHT OR LEFT LOWER EXTREMITY. Severe and massive reflux was identified in the bilateral lower extremities involving the deep and superficial system extensively. The common femoral vein and saphenofemoral junction greater saphenous vein and superficial femoral vein all had severe reflux of greater than 5 seconds bilaterally. The left greater saphenous vein was massive in size and extremely abnormal with regards to diameter. Impression dictated by: Shaquille Alarcon MD11/28/2023 9:47 AM Dictation Location: [place] [address] Tech: Joselyn Sanchez Transcribed By: [facility] 11/28/23946 Dictated By: Shaquille Alarcon MD 11/28/23945 Signed By: 11/28/23946 Normal [facility] Office Visiton 10-31-2023 Follow-up visit [id number] TajUlises 1960 M Date Provider Department Center 10/31/2023 Faraz-RAVEN MOREIRA CARD [facility] Family History Problem Relation Age of Onset Atrial fibrillation Father Family Status - Relation Status Age at Father Level of Service:18803 ME OFFICE/OUTPATIENT ESTABLISHED MOD MDM 30 MIN Normal [facility] Estimated glomerular filtrat ion rate (GFR) non- Americanon 10-27-2023 GFR/1.73 sq M.predicted among non-blacks MDRD (S/P/Bld) [Vol rate/Area] 49 mL/min/{1.73_m2} >=60 [facility] Laboratory - Chemistry and C hemistry - challengeon 10-27-2023 Calcium [Mass/Vol] 8.8 mg/dL 8.5-10.1 [facility] Chloride [Moles/Vol] 97 mmol/L 98-107 [facility] CO2 [Moles/Vol] 33.1 mmol/L 21.0-32.0 [facility] Creatinine [Mass/Vol] 1.45 mg/dL 0.70-1.30 [facility] GFR/1.73 sq M.predicted MDRD (S/P/Bld) [Vol rate/Area] 60 mL/min/{1.73_m2} >=60 [facility] Glucose [Mass/Vol] 101 mg/dL 74-106 [facility] Magnesium [Mass/Vol] 2.1 mg/dL 1.8-2.4 [facility] Potassium [Moles/Vol] 4.6 mmol/L 3.5-5.1 [facility] Sodium [Moles/Vol] 135 mmol/L 136-145 [facility] Urea nitrogen [Mass/Vol] 33.0 mg/dL 7.0-18.0 [facility] Urea nitrogen/Creatinine [Mass ratio] 22.8 mg/mg [facility] Orders Onlyon 10-27-2023 Orders Only [id number] Ulises Perrin 1960 Provider Department Center 10/27/[id number], [facility]Y [facility] No family history on file [facility] Serum or plasma anion gap de terminationon 10-27-2023 Anion gap [Moles/Vol] 9.5 mmol/L [facility] Telephoneon 10-27-2023 Telephone [id number] Ulises Perrin 1960 Provider Department Center 10/27/[id number], [facility] No family history on file Reason for Visit and Comments: Lab Orders [830] - Pt notified to have lab work done prior to HFU appt on 10/31/23. [facility] 36on 10-26-2023 36 Discharge date: 10/25/23 Call date: 10/26/23 Spoke with: patient HF Follow-up date: 10/31/23 Med reconciliation completed: yes Questions/Concerns: Home meds reviewed with pt. Pt stated he is feeling much better than when he was admitted. Pt Is monitoring his weight, BP and HR. Pt Stated he had some cramping today in his hands, legs and shoulder today. Pt stated he took a magnesium tab about an hour and a half before speaking with him and has not had any cramping since. Pt stated he drank about 1 liter of his 1.5-2 liter fluid allowance already today. Pt instructed to call the clinic if he has any more cramping. Ethyl Blender will notify the HF follow-up provider. No other issues or concerns at this time. [facility] Documentationon 10-26-2023 Documentation [id number] Ulises Perrin 1960 Provider Department Center 10/26/[id number], [facility] No family history on file Reason for Visit and Comments: HF inpatient satisfaction survey sent. [Other] Normal [facility] Telephoneon 10-26-2023 Telephone [id number] Ulises Perrin 1960 M Date Provider Department [place] 10/26/[id number] CARDOZA [facility] No family history on file Reason for Visit and Comments: HF post discharge call. [Other] Normal [facility] 30on 10-25-2023 30 The patient is Moderately [...] and maintained or improved Outcome: Progressing Normal [facility] 30 The patient is Moderately Stable [...] and behaviors that affect risk of falls [place] fall precautions as indicated by assessment Educate [...] and prevent overall improvement and discharge Normal [facility] BASIC METABOLIC PANELon 10-07 Anion gap [Moles/Vol] 13 mmol/L Normal 7-20 [facility] Comment on above: Performed By: #### L [id number] #### [facility] ([facility]) [address] [place] [address] Calcium [Mass/Vol] 8.9 mg/dL Normal 8.6-10.3 [facility] Comment on above: Performed By: #### L [id number] #### [facility] ([facility]) [address] [place] [address] Chloride [Moles/Vol] 97 mmol/L Low 98-107 [facility] Comment on above: Performed By: #### L [id number] #### [facility] ([facility]) [address] [place] [address] CO2 [Moles/Vol] 29 mmol/L Normal 21-[address] [facility] Comment on above: Performed By: #### L [id number] #### [facility] ([facility]) [address] [place] [address] Creatinine [Mass/Vol] 1.48 mg/dL High 0.70-1.30 [facility] Comment on above: Performed By: #### L [id number] #### [facility] ([facility]) [address] [place] [address] GLOMERULAR FILTRATION RATE ML/MIN/1.73 SQ M.PREDICTED 52.8 mL/min/1.73m*2 Low >60.0 [facility] Comment on above: Result Comment: The [facility]???s estimated glomerular filtration rate (eGFR) will [...] of individuals. Performed By: #### L [id number] #### [facility] ([facility]) [address] [place] [address] Glucose [Mass/Vol] 117 mg/dL High 70-100 [facility] Comment on above: Performed By: #### L [id number] #### [facility] ([facility]) [address] [place] [address] Potassium [Moles/Vol] 4.0 mmol/L Normal 3.5-5.1 [facility] Comment on above: Performed By: #### L [id number] #### [facility] [address] [place] [address] Sodium [Moles/Vol] 135 mmol/L Low 136-145 [facility] Comment on above: Performed By: #### L [id number] #### [facility] ([facility]) [address] [place] [address] Urea nitrogen [Mass/Vol] 29 mg/dL High 7-25 [facility] Comment on above: Performed By: #### L [id number] #### [facility] [address] [place] [address] UREA NITROGEN/CREATININE (MASS RATIO) IN SER/PLAS 19.6 Normal [facility] Comment on above: Performed By: #### L [id number] #### [facility] ([facility]) [address] [place] [address] CBCon 10-25-2023 Erythrocyte distribution width (RBC) [Ratio] 12.7 % Normal 11.5-15.0 [facility] Comment on above: Performed By: #### L [id number] ####[facility] [place] [address] ERYTHROCYTE MEAN CORPUSCULAR HEMOGLOBIN CONCENTRATION (G/DL) BY AUTOMATED 34.1 g/dL Normal 32.0-35.0 [facility] Comment on above: Performed By: #### L [id number] ####[facility] ([facility])[address] [place] [address] Hematocrit (Bld) [Volume fraction] 49.3 % Normal 39.0-55.0 [facility] Comment on above: Performed By: #### L [id number] ####[facility] [place] [address] Hemoglobin (Bld) [Mass/Vol] 16.8 g/dL Normal 13.0-17.0 [facility] Comment on above: Performed By: #### L [id number] ####[facility] [place] [address] MCH (RBC) [Entitic mass] 30.8 pg Normal 27.0-33.0 [facility] Comment on above: Performed By: #### L [id number] ####[facility] [place] [address] MCV (RBC) [Entitic vol] 90.5 fL Normal 82.0-98.0 [facility] Comment on above: Performed By: #### L [id number] ####[facility] [place] [address] PLATELETS (10*3/UL) IN BLOOD AUTOMATED COUNT 259 10*3/uL Normal 150-400 [facility] Comment on above: Performed By: #### L [id number] ####[facility] ([facility])[address] [place] [address] RBC (Bld) [#/Vol] 5.45 10*6/uL Normal 4.20-5.70 [facility] Comment on above: Performed By: #### L [id number] ####[facility] ([facility])[address] [place] [address] WBC (Bld) [#/Vol] 9.33 10*3/uL Normal 4.00-10.60 [facility] Comment on above: Performed By: #### L [id number] ####[facility] ([facility])[address] [place] [address] 30on 10-24-2023 30 The patient is Moderately [...] injury: Assess patient frequently for physical needs [facility] 30 Daily Case Managemen t Update Multidisciplinary [...] PT Recommendations: OT Recommendations: New Consults: Normal [facility] 30 The patient is Moderately Stable [...] and behaviors that affect risk of falls [place] fall precautions as indicated by assessment Educate [...] and prevent overall improvement and discharge Normal [facility] Sincere 10-24-2023 JUSTINE - Attestation signed by Hernandez Mendiola MD [...] me. Patient: Ranjit Perrin Procedure Information Date/Time: 10/24/23 1716 Procedure: Ablation atrial flutter Location: [facility] [employer] OPERATOR 1 EP / [facility] (Cath) Providers: Hernandez [...] discussed with attending. Additional Equipment Requests Normal [facility] ANTI-XA (HEPARIN LEVEL)on HEPARIN UNFRACTIONATED (U/ML) IN PPP BY CHROMOGENIC METHOD <0.10 Invalid Interpretation Code 0.3-0.7 [facility] Comment on above: Result Comment: Bernie roxaban and Apixaban will interfere with the anti Xa assay used to monitor UFH and LMWH. Performed By: #### L [id number] ####[facility] ([facility])[address] [place] [address] HEPARIN UNFRACTIONATED (U/ML) IN PPP BY CHROMOGENIC METHOD 0.28 IU/mL Low 0.3-0.7 [facility] Comment on above: Result Comment: Bernie roxaban and Apixaban will interfere with the anti Xa assay used to monitor UFH and LMWH. Performed By: #### L [id number] #### [facility] ([facility]) [address] [place] [address] BASIC METABOLIC PANELon 10-06 Anion gap [Moles/Vol] 10 mmol/L Normal 7-20 [facility] Comment on above: Performed By: #### L [id number] ####[facility] ([facility])[address] [place] [address] Calcium [Mass/Vol] 9.1 mg/dL Normal 8.6-10.3 [facility] Comment on above: Performed By: #### L [id number] ####[facility] [place] [address] Chloride [Moles/Vol] 100 mmol/L Normal 98-107 [facility] Comment on above: Performed By: #### L [id number] ####[facility] ([facility])[address] [place] [address] CO2 [Moles/Vol] 29 mmol/L Normal 21-[address] [facility] Comment on above: Performed By: #### L [id number] ####[facility] ([facility] [place])[address] [place] [address] Creatinine [Mass/Vol] 1.24 mg/dL Normal 0.70-1.30 [facility] Comment on above: Performed By: #### L [id number] ####[facility] ([facility] [place])[address] [place] [address] GLOMERULAR FILTRATION RATE ML/MIN/1.73 SQ M.PREDICTED 65.3 mL/min/1.73m*2 Normal >60.0 [facility] Comment on above: Result Comment: [facility]???s estimated glomerular filtration rate (eGFR) will [...] of individuals. Performed By: #### L [id number] ####[facility] [place] [address] Glucose [Mass/Vol] 98 mg/dL Normal 70-100 [facility] Comment on above: Performed By: #### L [id number] ####[facility] [place] [address] Potassium [Moles/Vol] 4.0 mmol/L Normal 3.5-5.1 [facility] Comment on above: Performed By: #### L [id number] ####[facility] ([facility])[address] [place] [address] Sodium [Moles/Vol] 135 mmol/L Low 136-145 [facility] Comment on above: Performed By: #### L [id number] ####[facility] ([facility])[address] [place] [address] Urea nitrogen [Mass/Vol] 24 mg/dL Normal 7-25 [facility] Comment on above: Performed By: #### L [id number] ####[facility] [place] [address] UREA NITROGEN/CREATININE (MASS RATIO) IN SER/PLAS 19.4 Normal [facility] Comment on above: Performed By: #### L [id number] ####[facility] ([facility])[address] [place] [address] CBCon 10-24-2023 Erythrocyte distribution width (RBC) [Ratio] 12.6 % Normal 11.5-15.0 [facility] Comment on above: Performed By: #### L [id number] #### [facility] ([facility]) [address] [place] [address] ERYTHROCYTE MEAN CORPUSCULAR HEMOGLOBIN CONCENTRATION (G/DL) BY AUTOMATED 34.4 g/dL Normal 32.0-35.0 [facility] Comment on above: Performed By: #### L [id number] #### [facility] ([facility]) [address] [place] [address] Hematocrit (Bld) [Volume fraction] 49.1 % Normal 39.0-55.0 [facility] Comment on above: Performed By: #### L [id number] #### [facility] ([facility]) [address] [place] [address] Hemoglobin (Bld) [Mass/Vol] 16.9 g/dL Normal 13.0-17.0 [facility] Comment on above: Performed By: #### L [id number] #### [facility] ([facility]) [address] [place] [address] MCH (RBC) [Entitic mass] 30.6 pg Normal 27.0-33.0 [facility] Comment on above: Performed By: #### L [id number] #### [facility] ([facility] [place]) [address] [place] [address] MCV (RBC) [Entitic vol] 88.9 fL Normal 82.0-98.0 [facility] Comment on above: Performed By: #### L [id number] #### [facility] ([facility]) [address] [place] [address] PLATELETS (10*3/UL) IN BLOOD AUTOMATED COUNT 263 10*3/uL Normal 150-400 [facility] Comment on above: Performed By: #### L [id number] #### [facility] ([facility] [place]) [address] [place] [address] RBC (Bld) [#/Vol] 5.52 10*6/uL Normal 4.20-5.70 [facility] Comment on above: Performed By: #### L [id number] #### [facility] ([facility]) [address] [place] [address] WBC (Bld) [#/Vol] 8.44 10*3/uL Normal 4.00-10.60 [facility] Comment on above: Performed By: #### L [id number] #### [facility] ([facility]) [address] [place] [address] HPon 10-24-2023 - Attestation signed by Hernandez Mendiola MD [...] a 63 y.o. male was transferred from [facility], the patient presented there with [...] QT Interval 382 QTC CALCULATION(BAZETT) 485 P [place] 267 R-[place] -9 T Wave [place] 64 Impression Atrial flutter with variable A-V block Cannot rule out Inferior infarct , age undetermined Abnormal ECG No previous ECGs available Confirmed by John TAMEZ., L.S. (2) on 10/21/2023 6:27:14 PM No results found for: CKTOTAL , CKMB , CKMBINDEX , TROPONINI Complete Echo (TTE) w/wo Imaging Agent, Strain, 3D, Bubble Study Result Date: 10/22/2023 1 1 [facility] Heart Station [address] [place] [address] [phone] (fax) Echocardiogram-[facility] Name: ULISES PERRIN Study Date: 10/21/2023 02:19 PM B/P: 112 mmHg/92 mmHg HR: 108 bpm Date of : 1960 Location: [facility] Height: 74 in. Age: 63 year(s) [...] 22cm) LV (more content not included)... Normal [facility] ANTI-XA (HEPARIN LEVEL)on HEPARIN UNFRACTIONATED (U/ML) IN PPP BY CHROMOGENIC METHOD 0.51 IU/mL Normal 0.3-0.7 [facility] Comment on above: Result Comment: [place] roxaban and Apixaban will interfere with the anti Xa assay used to monitor UFH and LMWH. Performed By: #### L [id number] #### [facility] ([facility]) [address] [place] [address] BASIC METABOLIC PANELon 10-06 Anion gap [Moles/Vol] 12 mmol/L Normal 7-20 [facility] Comment on above: Performed By: #### L [id number] #### [facility] ([facility]) [address] [place] [address] Calcium [Mass/Vol] 9.2 mg/dL Normal 8.6-10.3 [facility] Comment on above: Performed By: #### L [id number] #### [facility] ([facility]) [address] [place] [address] Chloride [Moles/Vol] 100 mmol/L Normal 98-107 [facility] Comment on above: Performed By: #### L [id number] #### [facility] ([facility] [place]) [address] [place] [address] CO2 [Moles/Vol] 28 mmol/L Normal 21-[address] [facility] Comment on above: Performed By: #### L [id number] #### [facility] ([facility]) [address] [place] [address] Creatinine [Mass/Vol] 1.28 mg/dL Normal 0.70-1.30 [facility] Comment on above: Performed By: #### L [id number] #### [facility] ([facility]) [address] [place] [address] GLOMERULAR FILTRATION RATE ML/MIN/1.73 SQ M.PREDICTED 62.9 mL/min/1.73m*2 Normal >60.0 [facility] Comment on above: Result Comment: [facility]???s estimated glomerular filtration rate (eGFR) will [...] individuals. Performed By: #### L [id number] #### [facility] ([facility]) [address] [place] [address] Glucose [Mass/Vol] 111 mg/dL High 70-100 [facility] Comment on above: Performed By: #### L [id number] #### [facility] ([facility]) [address] [place] [address] Potassium [Moles/Vol] 4.0 mmol/L Normal 3.5-5.1 [facility] Comment on above: Performed By: #### L [id number] #### [facility] ([facility]) [address] [place] [address] Sodium [Moles/Vol] 136 mmol/L Normal 136-145 [facility] Comment on above: Performed By: #### L [id number] #### [facility] ([facility]) [address] [place] [address] Urea nitrogen [Mass/Vol] 24 mg/dL Normal 7-25 [facility] Comment on above: Performed By: #### L [id number] #### [facility] ([facility]) [address] [place] [address] UREA NITROGEN/CREATININE (MASS RATIO) IN SER/PLAS 18.8 Normal [facility] Comment on above: Performed By: #### L [id number] #### [facility] ([facility]) [address] [place] [address] 30on 10-22-2023 30 The patient is Moderately [...] and maintained or improved Outcome: Progressing Normal [facility] 30 The patient is Moderately Stable [...] and maintained or improved Outcome: Progressing Normal [facility] ANTI-XA (HEPARIN LEVEL)on HEPARIN UNFRACTIONATED (U/ML) IN PPP BY CHROMOGENIC METHOD 0.51 IU/mL Normal 0.3-0.7 [facility] Comment on above: Result Comment: [place] roxaban and Apixaban will interfere with the anti Xa assay used to monitor UFH and LMWH. Performed By: #### L [id number] #### [facility] ([facility]) [address] [place] [address] BASIC METABOLIC PANELon 10-06 Anion gap [Moles/Vol] 10 mmol/L Normal 7-20 [facility] Comment on above: Performed By: #### L [id number] #### [facility] ([facility]) [address] [place] [address] Calcium [Mass/Vol] 9.1 mg/dL Normal 8.6-10.3 [facility] Comment on above: Performed By: #### L [id number] #### [facility] [address] [place] [address] Chloride [Moles/Vol] 101 mmol/L Normal 98-107 [facility] Comment on above: Performed By: #### L [id number] #### [facility] ([facility]) [address] [place] [address] CO2 [Moles/Vol] 28 mmol/L Normal 21-[address] [facility] Comment on above: Performed By: #### L [id number] #### [facility] [address] [place] [address] Creatinine [Mass/Vol] 1.40 mg/dL High 0.70-1.30 [facility] Comment on above: Performed By: #### L [id number] #### [facility] [address] [place] [address] GLOMERULAR FILTRATION RATE ML/MIN/1.73 SQ M.PREDICTED 56.5 mL/min/1.73m*2 Low >60.0 [facility] Comment on above: Result Comment: [facility]???s estimated glomerular filtration rate (eGFR) will [...] individuals. Performed By: #### L [id number] #### [facility] ([facility]) [address] [place] [address] Glucose [Mass/Vol] 134 mg/dL High 70-100 [facility] Comment on above: Performed By: #### L [id number] #### [facility] ([facility]) [address] [place] [address] Potassium [Moles/Vol] 3.8 mmol/L Normal 3.5-5.1 [facility] Comment on above: Performed By: #### L [id number] #### [facility] ([facility]) [address] [place] [address] Sodium [Moles/Vol] 135 mmol/L Low 136-145 [facility] Comment on above: Performed By: #### L [id number] #### [facility] [address] [place] [address] Urea nitrogen [Mass/Vol] 21 mg/dL Normal 7-25 [facility] Comment on above: Performed By: #### L [id number] #### [facility] ([facility] [place]) [address] [place] [address] UREA NITROGEN/CREATININE (MASS RATIO) IN SER/PLAS 15.0 Normal [facility] Comment on above: Performed By: #### L [id number] #### [facility] [address] [place] [address] CBCon 10-22-2023 Erythrocyte distribution width (RBC) [Ratio] 12.9 % Normal 11.5-15.0 [facility] Comment on above: Performed By: #### L [id number] #### [facility] ([facility] [place]) [address] [place] [address] ERYTHROCYTE MEAN CORPUSCULAR HEMOGLOBIN CONCENTRATION (G/DL) BY AUTOMATED 34.5 g/dL Normal 32.0-35.0 [facility] Comment on above: Performed By: #### L [id number] #### [facility] ([facility]) [address] [place] [address] Hematocrit (Bld) [Volume fraction] 47.5 % Normal 39.0-55.0 [facility] Comment on above: Performed By: #### L [id number] #### [facility] ([facility]) [address] [place] [address] Hemoglobin (Bld) [Mass/Vol] 16.4 g/dL Normal 13.0-17.0 [facility] Comment on above: Performed By: #### L [id number] #### [facility] ([facility]) [address] [place] [address] MCH (RBC) [Entitic mass] 31.3 pg Normal 27.0-33.0 [facility] Comment on above: Performed By: #### L [id number] #### [facility] ([facility]) [address] [place] [address] MCV (RBC) [Entitic vol] 90.6 fL Normal 82.0-98.0 [facility] Comment on above: Performed By: #### L [id number] #### [facility] ([facility]) [address] [place] [address] PLATELETS (10*3/UL) IN BLOOD AUTOMATED COUNT 242 10*3/uL Normal 150-400 [facility] Comment on above: Performed By: #### L [id number] #### [facility] ([facility]) [address] [place] [address] RBC (Bld) [#/Vol] 5.24 10*6/uL Normal 4.20-5.70 [facility] Comment on above: Performed By: #### L [id number] #### [facility] [address] [place] [address] WBC (Bld) [#/Vol] 7.70 10*3/uL Normal 4.00-10.60 [facility] Comment on above: Performed By: #### L [id number] #### [facility] ([facility] [place]) [address] [place] [address] 30on 10-21-2023 30 Problem: Pain - Adul t Goal: Verbalizes/displays adequate comfort level or baseline comfort level Outcome: Progressing Problem: Safety - Adult Goal: Free from fall injury Outcome: Progressing Flowsheets (Taken 10/21/202330) Free from fall injury: Assess patient frequently for physical needs Identify cognitive and physical deficits and behaviors that affect risk of falls [place] fall precautions as indicated by assessment Educate [...] for the shift include control heartrate Normal [facility] 30 The patient is Moderately Stable [...] and maintained or improved Outcome: Progressing Normal [facility] ANTI-XA (HEPARIN LEVEL)on HEPARIN UNFRACTIONATED (U/ML) IN PPP BY CHROMOGENIC METHOD 0.59 IU/mL Normal 0.3-0.7 [facility] Comment on above: Result Comment: [place] roxaban and Apixaban will interfere with the anti Xa assay used to monitor UFH and LMWH. Performed By: #### L [id number] ####[facility] ([facility])[address] [place] [address] HEPARIN UNFRACTIONATED (U/ML) IN PPP BY CHROMOGENIC METHOD 0.72 IU/mL High 0.3-0.7 [facility] Comment on above: Result Comment: [place] roxaban and Apixaban will interfere with the anti Xa assay used to monitor UFH and LMWH. Performed By: #### L [id number] #### [facility] ([facility]) [address] [place] [address] HEPARIN UNFRACTIONATED (U/ML) IN PPP BY CHROMOGENIC METHOD 0.43 IU/mL Normal 0.3-0.7 [facility] Comment on above: Order Comment: Check anti-Xa level every 6 hours while on heparin infusion, or per protocol. Result Comment: [place] roxaban and Apixaban will interfere with the anti Xa assay used to monitor UFH and LMWH. Performed By: #### L [id number] #### [facility] [address] [place] [address] APTTon 10-21-2023 ACTIVATED PARTIAL THROMBOPLASTIN TIME IN PPP BY COAGULATION ASSAY 35.9 Seconds High 25.0-35.0 [facility] Comment on above: Order Comment: Basel ine aPTT before initiating heparin infusion. Result Comment: Clin ical significance of the APTT is questionable in the presence of heparin. Performed By: #### L [id number] #### [facility] ([facility] [place]) [address] [place] [address] B-TYPE NATRIURETIC PEPTIDEon 10-21-2023 Natriuretic peptide B (Bld) [Mass/Vol] 169 pg/mL High 0-100 [facility] Comment on above: Performed By: #### L [id number] #### [facility] ([facility] [place]) [address] [place] [address] CBC WITH AUTO DIFFERENTIALon 10-21-2023 Basophils (Bld) [#/Vol] 0.03 10*3/uL Normal 0.00-0.20 [facility] Comment on above: Performed By: #### L [id number] #### [facility] ([facility] [place]) [address] [place] [address] Basophils/100 WBC (Bld) 0.4 % Normal 0.0-1.0 [facility] Comment on above: Performed By: #### L [id number] #### [facility] ([facility] [place]) [address] [place] [address] Eosinophils (Bld) [#/Vol] 0.21 10*3/uL Normal 0.00-0.50 [facility] Comment on above: Performed By: #### L [id number] #### [facility] ([facility] [place]) [address] [place] [address] Eosinophils/100 WBC (Bld) 2.5 % Normal 0.0-6.0 [facility] Comment on above: Performed By: #### L [id number] #### [facility] ([facility] [address] [address] Erythrocyte distribution width (RBC) [Ratio] 12.8 % Normal 11.5-15.0 [facility] Comment on above: Performed By: #### L [id number] #### [facility] ([facility]) [address] [place] [address] ERYTHROCYTE MEAN CORPUSCULAR HEMOGLOBIN CONCENTRATION (G/DL) BY AUTOMATED 33.7 g/dL Normal 32.0-35.0 [facility] Comment on above: Performed By: #### L [id number] #### [facility] [address] [place] [address] Hematocrit (Bld) [Volume fraction] 46.0 % Normal 39.0-55.0 [facility] Comment on above: Performed By: #### L [id number] #### [facility] ([facility] [place]) [address] [place] [address] Hemoglobin (Bld) [Mass/Vol] 15.5 g/dL Normal 13.0-17.0 [facility] Comment on above: Performed By: #### L [id number] #### [facility] [address] [place] [address] Immature granulocytes (Bld) [#/Vol] 0.03 10*3/uL Normal 0.00-0.20 [facility] Comment on above: Performed By: #### L [id number] #### [facility] ([facility]) [address] [place] [address] Immature granulocytes/100 WBC (Bld) 0.4 % Normal 0.0-1.0 [facility] Comment on above: Performed By: #### L [id number] #### [facility] ([facility]) [address] [place] [address] Lymphocytes (Bld) [#/Vol] 2.58 10*3/uL Normal 1.20-4.00 [facility] Comment on above: Performed By: #### L [id number] #### [facility] ([facility]) [address] [place] [address] Lymphocytes/100 WBC (Bld) 30.3 % Normal 20.0-45.0 [facility] Comment on above: Performed By: #### L [id number] #### [facility] ([facility] [place]) [address] [place] [address] MCH (RBC) [Entitic mass] 30.4 pg Normal 27.0-33.0 [facility] Comment on above: Performed By: #### L [id number] #### [facility] ([facility] [place]) [address] [place] [address] MCV (RBC) [Entitic vol] 90.2 fL Normal 82.0-98.0 [facility] Comment on above: Performed By: #### L [id number] #### [facility] ([facility]) [address] [place] [address] Monocytes (Bld) [#/Vol] 0.82 10*3/uL Normal 0.10-1.00 [facility] Comment on above: Performed By: #### L [id number] #### [facility] ([facility]) [address] [place] [address] Monocytes/100 WBC (Bld) 9.6 % Normal 5.0-12.0 [facility] Comment on above: Performed By: #### L [id number] #### [facility] ([facility]) [address] [place] [address] Neutrophils (Bld) [#/Vol] 4.85 10*3/uL Normal 1.60-7.60 [facility] Comment on above: Performed By: #### L [id number] #### [facility] ([facility]) [address] [place] [address] Neutrophils/100 WBC (Bld) 56.8 % Normal 40.0-72.0 [facility] Comment on above: Performed By: #### L [id number] #### [facility] [address] [place] [address] NRBC (PER 100 WBCS) BY AUTOMATED COUNT 0.0 % Normal 0 [facility] Comment on above: Performed By: #### L [id number] #### [facility] [address] [place] [address] PLATELETS (10*3/UL) IN BLOOD AUTOMATED COUNT 249 10*3/uL Normal 150-400 [facility] Comment on above: Performed By: #### L [id number] #### [facility] ([facility]) [address] [place] [address] RBC (Bld) [#/Vol] 5.10 10*6/uL Normal 4.20-5.70 [facility] Comment on above: Performed By: #### L [id number] #### [facility] ([facility]) [address] [place] [address] WBC (Bld) [#/Vol] 8.52 10*3/uL Normal 4.00-10.60 [facility] Comment on above: Performed By: #### L [id number] #### [facility] ([facility]) [address] [place] [address] COMPREHENSIVE METABOLIC PANE Eyal 10-21-2023 Albumin [Mass/Vol] 4.0 g/dL Normal 3.5-5.7 [facility] Comment on above: Performed By: #### L [id number] #### [facility] ([facility]) [address] [place] [address] ALP [Catalytic activity/Vol] 44 U/L Normal 34-104 [facility] Comment on above: Performed By: #### L [id number] #### [facility] ([facility]) [address] [place] [address] ALT [Catalytic activity/Vol] 16 U/L Normal 7-52 [facility] Comment on above: Performed By: #### L [id number] #### [facility] [address] [place] [address] Anion gap [Moles/Vol] 12 mmol/L Normal 7-20 [facility] Comment on above: Performed By: #### L [id number] #### [facility] ([facility]) [address] [place] [address] AST [Catalytic activity/Vol] 19 U/L Normal 13-39 [facility] Comment on above: Performed By: #### L [id number] #### [facility] ([facility]) [address] [place] [address] Bilirubin [Mass/Vol] 0.9 mg/dL Normal 0.3-1.0 [facility] Comment on above: Performed By: #### L [id number] #### [facility] [address] [place] [address] Calcium [Mass/Vol] 8.9 mg/dL Normal 8.6-10.3 [facility] Comment on above: Performed By: #### L [id number] #### [facility] [address] [place] [address] Chloride [Moles/Vol] 100 mmol/L Normal 98-107 [facility] Comment on above: Performed By: #### L [id number] #### [facility] [facility]) [address] [place] [address] CO2 [Moles/Vol] 30 mmol/L Normal 21-[address] [facility] Comment on above: Performed By: #### L [id number] #### [facility] [address] [place] [address] Creatinine [Mass/Vol] 1.39 mg/dL High 0.70-1.30 [facility] Comment on above: Performed By: #### L [id number] #### [facility] [address] [place] [address] GLOMERULAR FILTRATION RATE ML/MIN/1.73 SQ M.PREDICTED 57.0 mL/min/1.73m*2 Low >60.0 [facility] Comment on above: Result Comment: [facility]???s estimated glomerular filtration rate (eGFR) will [...] individuals. Performed By: #### L [id number] #### [facility] ([facility]) [address] [place] [address] Glucose [Mass/Vol] 99 mg/dL Normal 70-100 [facility] Comment on above: Performed By: #### L [id number] #### [facility] ([facility]) [address] [place] [address] Potassium [Moles/Vol] 3.8 mmol/L Normal 3.5-5.1 [facility] Comment on above: Performed By: #### L [id number] #### [facility] ([facility]) [address] [place] [address] Protein [Mass/Vol] 6.4 g/dL Normal 6.0-8.3 [facility] Comment on above: Performed By: #### L [id number] #### [facility] ([facility]) [address] [place] [address] Sodium [Moles/Vol] 138 mmol/L Normal 136-145 [facility] Comment on above: Performed By: #### L [id number] #### [facility] ([facility]) [address] [place] [address] Urea nitrogen [Mass/Vol] 20 mg/dL Normal 7-25 [facility] Comment on above: Performed By: #### L [id number] #### [facility] ([facility]) [address] [place] [address] UREA NITROGEN/CREATININE (MASS RATIO) IN SER/PLAS 14.4 Normal [facility] Comment on above: Performed By: #### L [id number] #### [facility] ([facility]) [address] [place] [address] CONSULTon 10-21-2023 CONSULT Cardiology Consult Note Reason for Consult: A. fib/flutter HPI: Ranjit Perrin is a 63 y.o. male was transferred from [facility], the patient presented there with [...] QT Interval 382 QTC CALCULATION(BAZETT) 485 P [place] 267 R-[place] -9 T Wave [place] 64 Impression Atrial flutter with variable A-V [...] pressure/kidney function duration will continue to follow Natalia Fischer MD [employer] - PGY4 [facility] By using the attestations below, the signing [...] ischemia if CMP not tachycardia mediated. Normal [facility] PLATELET COUNTon 10-21-2023 PLATELETS (10*3/UL) IN BLOOD AUTOMATED COUNT 279 10*3/uL Normal 150-400 [facility] Comment on above: Performed By: #### L [id number] #### [facility] ([facility]) [address] [place] [address] POCT GLUCOSE METER UNSOLICIT ED RESULTSon 10-21-2023 Glucose [Mass/Vol] 173 mg/dL High 70-105 [facility] Comment on above: Order Comment: Waive d Testing in the ED is performed under the ED CLIA certificate #[id number]. Result Comment: estefani [email or web address] Performed By: #### L [id number] #### [facility] ([facility]) [address] [place] [address] Basophils Auto (Bld) [#/Vol] on 10-20-2023 Basophils (Bld) [#/Vol] 0.0 10 3/uL 0.0-0.1 [facility] Basophils/100 WBC Auto (Bld) on 10-20-2023 Basophils/100 WBC (Bld) 0.4 % 0.2-2.[address] [facility] Eosinophils/100 WBC Auto (Bl d)on 10-20-2023 Eosinophils/100 WBC (Bld) 3.0 % 0.9-7.0 [facility] Erythrocyte distribution wid th Auto (RBC) [Ratio]on 10-20-2023 Erythrocyte distribution width (RBC) [Ratio] 12.9 % 11.0-15.0 [facility] Estimated glomerular filtrat ion rate (GFR) non- Americanon 10-20-2023 GFR/1.73 sq M.predicted among non-blacks MDRD (S/P/Bld) [Vol rate/Area] 53 mL/min/{1.73_m2} >=60 [facility] Globulin Calc (S) [Mass/Vol] on 10-20-2023 Globulin (S) [Mass/Vol] 3.1 g/dL [facility] Hematocrit Auto (Bld) [Volum e fraction]on 10-20-2023 Hematocrit (Bld) [Volume fraction] 43.0 % 42.0-54.0 [facility] Hemoglobin [Mass/volume] in Bloodon 10-20-2023 Hemoglobin (Bld) [Mass/Vol] 14.4 g/dL 14.0-18.0 [facility] Laboratory - Chemistry and C hemistry - challengeon 10-20-2023 Albumin [Mass/Vol] 3.3 g/dL 3.4-5.0 [facility] ALP [Catalytic activity/Vol] 49 U/L 46-116 [facility] ALT [Catalytic activity/Vol] 26 U/L 16-63 [facility] AST [Catalytic activity/Vol] 21 U/L 15-37 [facility] Bilirubin [Mass/Vol] 0.8 mg/dL 0.2-1.0 [facility] Calcium [Mass/Vol] 8.7 mg/dL 8.5-10.1 [facility] Chloride [Moles/Vol] 106 mmol/L 98-107 [facility] CO2 [Moles/Vol] 28.7 mmol/L 21.0-32.0 [facility] Creatinine [Mass/Vol] 1.35 mg/dL 0.70-1.30 [facility] GFR/1.73 sq M.predicted MDRD (S/P/Bld) [Vol rate/Area] mL/min/{1.73_m2} >=60 [facility] Glucose [Mass/Vol] 112 mg/dL 74-106 [facility] Natriuretic peptide B (Bld) [Mass/Vol] 614.0 pg/mL <=900.0 [facility] Potassium [Moles/Vol] 4.0 mmol/L 3.5-5.1 [facility] Protein [Mass/Vol] 6.4 g/dL 6.4-8.2 [facility] Sodium [Moles/Vol] 144 mmol/L 136-145 [facility] Urea nitrogen [Mass/Vol] 21.0 mg/dL 7.0-18.0 [facility] Urea nitrogen/Creatinine [Mass ratio] 15.6 mg/mg [facility] Laboratory - Coagulationon 0 10-20-2023 aPTT Coag (Bld) [Time] 35.5 s 48.2-68.6 [facility] Comment on above: RESULTS CALLED TO ANDREA GONSALVES RN Laboratory - Hematology and Cell countson 10-20-2023 Immature granulocytes/100 WBC (Bld) 0.3 % 0.0-0.5 [facility] Leukocytes [#/volume] correc natalio for nucleated erythrocytes in Blood by Automated counon 10-20-2023 WBC corrected for nucl RBC Auto (Bld) [#/Vol] 7.3 10 3/uL 4.0-11.0 [facility] Lymphocytes Auto (Bld) [#/Vo l]on 10-20-2023 Lymphocytes (Bld) [#/Vol] 2.5 10 3/uL 1.2-3.8 [facility] Lymphocytes/100 WBC Auto (Bl d)on 10-20-2023 Lymphocytes/100 WBC (Bld) 33.8 % 20.5-60.0 [facility] MCH Auto (RBC) [Entitic mass ]on 10-20-2023 MCH (RBC) [Entitic mass] 30.8 pg 25.9-34.0 [facility] MCHC Auto (RBC) [Mass/Vol]on 10-20-2023 MCHC (RBC) [Mass/Vol] 33.5 g/dL 29.9-35.2 [facility] MCV Auto (RBC) [Entitic vol] on 10-20-2023 MCV (RBC) [Entitic vol] 92.1 fL 80.0-94.[address] [facility] Monocytes Auto (Bld) [#/Vol] on 10-20-2023 Monocytes (Bld) [#/Vol] 0.9 10 3/uL 0.3-0.8 [facility] Monocytes/100 WBC Auto (Bld) on 10-20-2023 Monocytes/100 WBC (Bld) 12.1 % 1.7-12.0 [facility] Neutrophils Auto (Bld) [#/Vo l]on 10-20-2023 Neutrophils (Bld) [#/Vol] 3.7 10 3/uL 1.4-6.5 [facility] Neutrophils/100 WBC Auto (Bl d)on 10-20-2023 Neutrophils/100 WBC (Bld) 50.4 % 43.0-75.0 [facility] No Panel Informationon 10-20 Eosinophils # (Auto) 0.2 10 3/uL 0.0-0.7 [facility] Immature Granulocyte # (Auto) 0.02 10 3/uL 0.00-0.03 [facility] Troponin I High Sensitivity 43.2 pg/mL 4.0-76.1 [facility] Comment on above: CUT-OFF POINTS HAVE BEEN ESTABLISHED BASED ON THE FOURTHUNIVERSAL DEFINITION OF MYOCARDIAL INFARCTION. THE UPPERREFERENCE LIMIT (URL) OF TROPONIN, DEFINED THE 99THPERCENTILE OF cTnI DISTRIBUTION IN A REFERENCE POPULATION,HAS BEEN CONFIRMED THE DECISION THRESHOLD FOR MIDIAGNOSIS.99TH PERCENTILE = 76.2 PG/MLNOTE: HIGH-SENSITIVITY TROPONIN ASSAY IS NOT INTENDED TO BEUSED IN ISOLATION BUT SHOULD BE INTERPRETED IN CONJUNCTIONWITH OTHER DIAGNOSTIC AND CLINICAL INFORMATION. Platelet mean volume Auto (B ld) [Entitic vol]on 10-20-2023 Platelet mean volume (Bld) [Entitic vol] 9.8 fL 9.5-13.5 [facility] Platelets Auto (Bld) [#/Vol] on 10-20-2023 Platelets (Bld) [#/Vol] 217 10 3/uL 150-450 [facility] RBC Auto (Bld) [#/Vol]on RBC (Bld) [#/Vol] 4.67 10 6/uL 4.70-6.10 [facility] Serum or plasma albumin/glob ulin mass ratioon 10-20-2023 Albumin/Globulin [Mass ratio] 1.1 {ratio} [facility] Serum or plasma anion gap de terminationon 10-20-2023 Anion gap [Moles/Vol] 13.3 [facility] Activated partial thrombopla stin time (aPTT) in platelet poor plasma by coagulation aon 10-19-2023 aPTT Coag (PPP) [Time] 29.1 s 22.3-36.2 [facility] Automated urine specific gra vity by refractometryon 10-19-2023 Specific gravity Refractometry automated (U) [Rel density] 1.010 1.005-1.025 [facility] Basophils Auto (Bld) [#/Vol] on 10-19-2023 Basophils (Bld) [#/Vol] 0.0 10 3/uL 0.0-0.1 [facility] Basophils/100 WBC Auto (Bld) on 10-19-2023 Basophils/100 WBC (Bld) 0.3 % 0.2-2.0 [facility] Bilirubin Auto test strip (U ) [Mass/Vol]on 10-19-2023 Bilirubin (U) [Mass/Vol] Negative NEGATIVE [facility] Color Auto (U)on 10-19-2023 Color (U) LT. YELLOW YELLOW [facility] Eosinophils/100 WBC Auto (Bl d)on 10-19-2023 Eosinophils/100 WBC (Bld) 1.7 % 0.9-7.0 [facility] Erythrocyte distribution wid th Auto (RBC) [Ratio]on 10-19-2023 Erythrocyte distribution width (RBC) [Ratio] 13.1 % 11.0-15.0 [facility] Estimated glomerular filtrat ion rate (GFR) non- Americanon 10-19-2023 GFR/1.73 sq M.predicted among non-blacks MDRD (S/P/Bld) [Vol rate/Area] 59 mL/min/{1.73_m2} >=60 [facility] Globulin Calc (S) [Mass/Vol] on 10-19-2023 Globulin (S) [Mass/Vol] 2.9 g/dL [facility] Hematocrit Auto (Bld) [Volum e fraction]on 10-19-2023 Hematocrit (Bld) [Volume fraction] 43.3 % 42.0-54.0 [facility] Hemoglobin [Mass/volume] in Bloodon 10-19-2023 Hemoglobin (Bld) [Mass/Vol] 14.2 g/dL 14.0-18.0 [facility] Ketones Auto test strip (U) [Mass/Vol]on 10-19-2023 Ketones (U) [Mass/Vol] Negative NEGATIVE [facility] Laboratory - Chemistry and C hemistry - challengeon 10-19-2023 Albumin [Mass/Vol] 3.3 g/dL 3.4-5.0 [facility] ALP [Catalytic activity/Vol] 49 U/L 46-116 [facility] ALT [Catalytic activity/Vol] 24 U/L 16-63 [facility] AST [Catalytic activity/Vol] 19 U/L 15-37 [facility] Bilirubin [Mass/Vol] 0.7 mg/dL 0.2-1.0 [facility] Calcium [Mass/Vol] 8.7 mg/dL 8.5-10.1 [facility] Chloride [Moles/Vol] 106 mmol/L 98-107 [facility] CO2 [Moles/Vol] 27.3 mmol/L 21.0-32.0 [facility] Creatinine [Mass/Vol] 1.24 mg/dL 0.70-1.30 [facility] GFR/1.73 sq M.predicted MDRD (S/P/Bld) [Vol rate/Area] mL/min/{1.73_m2} >=60 [facility] Glucose [Mass/Vol] 110 mg/dL 74-106 [facility] Natriuretic peptide B (Bld) [Mass/Vol] 714.0 pg/mL <=900.0 [facility] Potassium [Moles/Vol] 4.1 mmol/L 3.5-5.1 [facility] Protein [Mass/Vol] 6.2 g/dL 6.4-8.2 [facility] Sodium [Moles/Vol] 143 mmol/L 136-145 [facility] Urea nitrogen [Mass/Vol] 23.0 mg/dL 7.0-18.0 [facility] Urea nitrogen/Creatinine [Mass ratio] 18.5 mg/mg [facility] Laboratory - Coagulationon 0 10-19-2023 aPTT Coag (Bld) [Time] 32.5 s 48.2-68.6 [facility] Comment on above: RESULTS CALLED TO MAILE STOVALL RN @BY Shaila Vogel 2225 Laboratory - Hematology and Cell countson 10-19-2023 Immature granulocytes/100 WBC (Bld) 0.2 % 0.0-0.5 [facility] Leukocytes [#/volume] correc natalio for nucleated erythrocytes in Blood by Automated counon 10-19-2023 WBC corrected for nucl RBC Auto (Bld) [#/Vol] 8.8 10 3/uL 4.0-11.0 [facility] Lymphocytes Auto (Bld) [#/Vo l]on 10-19-2023 Lymphocytes (Bld) [#/Vol] 2.2 10 3/uL 1.2-3.8 [facility] Lymphocytes/100 WBC Auto (Bl d)on 10-19-2023 Lymphocytes/100 WBC (Bld) 24.5 % 20.5-60.0 [facility] MCH Auto (RBC) [Entitic mass ]on 10-19-2023 MCH (RBC) [Entitic mass] 30.7 pg 25.9-34.0 [facility] MCHC Auto (RBC) [Mass/Vol]on 10-19-2023 MCHC (RBC) [Mass/Vol] 32.8 g/dL 29.9-35.2 [facility] MCV Auto (RBC) [Entitic vol] on 10-19-2023 MCV (RBC) [Entitic vol] 93.5 fL 80.0-94.0 [facility] Monocytes Auto (Bld) [#/Vol] on 10-19-2023 Monocytes (Bld) [#/Vol] 0.9 10 3/uL 0.3-0.8 [facility] Monocytes/100 WBC Auto (Bld) on 10-19-2023 Monocytes/100 WBC (Bld) 9.7 % 1.7-12.0 [facility] Neutrophils Auto (Bld) [#/Vo l]on 10-19-2023 Neutrophils (Bld) [#/Vol] 5.6 10 3/uL 1.4-6.5 [facility] Neutrophils/100 WBC Auto (Bl d)on 10-19-2023 Neutrophils/100 WBC (Bld) 63.6 % 43.0-75.0 [facility] No Panel Informationon 10-19 Urine Microscopic Review NO [facility] Eosinophils # (Auto) 0.2 10 3/uL 0.0-0.7 [facility] Immature Granulocyte # (Auto) 0.02 10 3/uL 0.00-0.03 [facility] Troponin I High Sensitivity 75.2 pg/mL 4.0-76.1 [facility] Comment on above: CUT-OFF POINTS HAVE BEEN ESTABLISHED BASED ON THE FOURTHUNIVERSAL DEFINITION OF MYOCARDIAL INFARCTION. THE UPPERREFERENCE LIMIT (URL) OF TROPONIN, DEFINED THE 99THPERCENTILE OF cTnI DISTRIBUTION IN A REFERENCE POPULATION,HAS BEEN CONFIRMED THE DECISION THRESHOLD FOR MIDIAGNOSIS.99TH PERCENTILE = 76.2 PG/MLNOTE: HIGH-SENSITIVITY TROPONIN ASSAY IS NOT INTENDED TO BEUSED IN ISOLATION BUT SHOULD BE INTERPRETED IN CONJUNCTIONWITH OTHER DIAGNOSTIC AND CLINICAL INFORMATION. Platelet mean volume Auto (B ld) [Entitic vol]on 10-19-2023 Platelet mean volume (Bld) [Entitic vol] 9.5 fL 9.5-13.5 [facility] Platelets Auto (Bld) [#/Vol] on 10-19-2023 Platelets (Bld) [#/Vol] 216 10 3/uL 150-450 [facility] Protein Auto test strip (U) [Mass/Vol]on 10-19-2023 Protein (U) [Mass/Vol] Negative NEG/TRACE [facility] RBC Auto (Bld) [#/Vol]on RBC (Bld) [#/Vol] 4.63 10 6/uL 4.70-6.10 [facility] Serum or plasma albumin/glob ulin mass ratioon 10-19-2023 Albumin/Globulin [Mass ratio] 1.1 {ratio} [facility] Serum or plasma anion gap de terminationon 10-19-2023 Anion gap [Moles/Vol] 13.8 mmol/L [facility] Specific gravity Auto test s trip (U) [Rel density]on 10-19-2023 Specific gravity (U) [Rel density] CLEAR CLEAR [facility] Urine glucose measurement by test strip (mass/volume)on 10-19-2023 Glucose Test strip (U) [Mass/Vol] Negative NEGATIVE [facility] Urine hemoglobin detection b y automated test stripon 10-19-2023 Hemoglobin Auto test strip Ql (U) Negative NEGATIVE [facility] Urine nitrite detection by a utomated test stripon 10-19-2023 Nitrite Auto test strip Ql (U) Negative NEGATIVE [facility] Urobilinogen Auto test strip (U) [Mass/Vol]on 10-19-2023 Urobilinogen Qn (U) 0.2 {Preston'U}/dL 0.2-1.0 [facility] pH Auto test strip (U)on pH (U) 6.0 [pH] 5.0-9.0 [facility] Basophils Auto (Bld) [#/Vol] on 10-18-2023 Basophils (Bld) [#/Vol] 0.0 10 3/uL 0.0-0.1 [facility] Basophils/100 WBC Auto (Bld) on 10-18-2023 Basophils/100 WBC (Bld) 0.1 % 0.2-2.0 [facility] Eosinophils/100 WBC Auto (Bl d)on 10-18-2023 Eosinophils/100 WBC (Bld) 1.1 % 0.9-7.0 [facility] Erythrocyte distribution wid th Auto (RBC) [Ratio]on 10-18-2023 Erythrocyte distribution width (RBC) [Ratio] 12.8 % 11.0-15.0 [facility] Estimated glomerular filtrat ion rate (GFR) non- Americanon 10-18-2023 GFR/1.73 sq M.predicted among non-blacks MDRD (S/P/Bld) [Vol rate/Area] 52 mL/min/{1.73_m2} >=60 [facility] Globulin Calc (S) [Mass/Vol] on 10-18-2023 Globulin (S) [Mass/Vol] 3.2 g/dL [facility] Hematocrit Auto (Bld) [Volum e fraction]on 10-18-2023 Hematocrit (Bld) [Volume fraction] 45.7 % 42.0-54.0 [facility] Hemoglobin [Mass/volume] in Bloodon 10-18-2023 Hemoglobin (Bld) [Mass/Vol] 15.0 g/dL 14.0-18.0 [facility] Laboratory - Chemistry and C hemistry - challengeon 10-18-2023 Albumin [Mass/Vol] 3.7 g/dL 3.4-5.0 [facility] ALP [Catalytic activity/Vol] 55 U/L 46-116 [facility] ALT [Catalytic activity/Vol] 28 U/L 16-63 [facility] AST [Catalytic activity/Vol] 22 U/L 15-37 [facility] Bilirubin [Mass/Vol] 1.1 mg/dL 0.2-1.0 [facility] Bilirubin.direct [Mass/Vol] 0.3 mg/dL 0.0-0.2 [facility] Lactate [Moles/Vol] 1.2 mmol/L 0.4-2.0 [facility] Magnesium [Mass/Vol] 1.7 mg/dL 1.8-2.4 [facility] Natriuretic peptide B (Bld) [Mass/Vol] 935.0 pg/mL <=900.0 [facility] Protein [Mass/Vol] 6.9 g/dL 6.4-8.2 [facility] T4 [Mass/Vol] 8.60 ug/dL 4.50-12.10 [facility] TSH Qn 1.593 m[IU]/L 0.358-3.740 [facility] Calcium [Mass/Vol] 9.0 mg/dL 8.5-10.1 [facility] Chloride [Moles/Vol] 107 mmol/L 98-107 [facility] CO2 [Moles/Vol] 29.3 mmol/L 21.0-32.0 [facility] Creatinine [Mass/Vol] 1.39 mg/dL 0.70-1.30 [facility] GFR/1.73 sq M.predicted MDRD (S/P/Bld) [Vol rate/Area] mL/min/{1.73_m2} >=60 [facility] Glucose [Mass/Vol] 114 mg/dL 74-106 [facility] Potassium [Moles/Vol] 4.3 mmol/L 3.5-5.1 [facility] Sodium [Moles/Vol] 144 mmol/L 136-145 [facility] Urea nitrogen [Mass/Vol] 23.0 mg/dL 7.0-18.0 [facility] Urea nitrogen/Creatinine [Mass ratio] 16.5 mg/mg [facility] Laboratory - Hematology and Cell countson 10-18-2023 Immature granulocytes/100 WBC (Bld) 0.2 % 0.0-0.5 [facility] Laboratory - Microbiology an d Antimicrobial susceptibilityon 10-18-2023 SARS-CoV-2 (COVID-19) RNA CHAKA+probe Ql (Unsp spec) Negative NEGATIVE [facility] Comment on above: This test has not be en FDA cleared or approved, but has beenauthorized by the FDA under an Emergency Use Authorization(EUA) for use by authorized laboratories certified underIA that meet the requirements to perform moderate or highcomplexity testing. This test has been authorized only forthe detection of proteins from SARS-CoV-2, not for any otherviruses or pathogens. The emergency use of this test isauthorized for the duration of the declaration thatcircumstances exist justifying the authorization ofemergency use of in vitro diagnostic tests for detectionand/or diagnosis of Covid-19 under section 564(b)(1) of theAct, 21 U.S.C. 360bbb-3(b)(1), unless the declaration isterminated or authorization is revoked sooner. Leukocytes [#/volume] correc natalio for nucleated erythrocytes in Blood by Automated counon 10-18-2023 WBC corrected for nucl RBC Auto (Bld) [#/Vol] 8.4 10 3/uL 4.0-11.0 [facility] Lymphocytes Auto (Bld) [#/Vo l]on 10-18-2023 Lymphocytes (Bld) [#/Vol] 1.5 10 3/uL 1.2-3.8 [facility] Lymphocytes/100 WBC Auto (Bl d)on 10-18-2023 Lymphocytes/100 WBC (Bld) 17.8 % 20.5-60.0 [facility] MCH Auto (RBC) [Entitic mass ]on 10-18-2023 MCH (RBC) [Entitic mass] 30.7 pg 25.9-34.0 [facility] MCHC Auto (RBC) [Mass/Vol]on 10-18-2023 MCHC (RBC) [Mass/Vol] 32.8 g/dL 29.9-35.2 [facility] MCV Auto (RBC) [Entitic vol] on 10-18-2023 MCV (RBC) [Entitic vol] 93.6 fL 80.0-94.0 [facility] Monocytes Auto (Bld) [#/Vol] on 10-18-2023 Monocytes (Bld) [#/Vol] 0.8 10 3/uL 0.3-0.8 [facility] Monocytes/100 WBC Auto (Bld) on 10-18-2023 Monocytes/100 WBC (Bld) 9.4 % 1.7-12.0 [facility] Neutrophils Auto (Bld) [#/Vo l]on 10-18-2023 Neutrophils (Bld) [#/Vol] 6.0 10 3/uL 1.4-6.5 [facility] Neutrophils/100 WBC Auto (Bl d)on 10-18-2023 Neutrophils/100 WBC (Bld) 71.4 % 43.0-75.0 [facility] No Panel Informationon 10-18 Troponin I High Sensitivity 78.5 pg/mL 4.0-76.1 [facility] Comment on above: RESULTS CALLED TO [Marybeth STOVALL/RN]@BY Prisca Oreilly [id number] POINTS HAVE BEEN ESTABLISHED BASED ON THE FOURTHUNIVERSAL DEFINITION OF MYOCARDIAL INFARCTION. THE UPPERREFERENCE LIMIT (URL) OF TROPONIN, DEFINED THE 99THPERCENTILE OF cTnI DISTRIBUTION IN A REFERENCE POPULATION,HAS BEEN CONFIRMED THE DECISION THRESHOLD FOR MIDIAGNOSIS.99TH PERCENTILE = 76.2 PG/MLNOTE: HIGH-SENSITIVITY TROPONIN ASSAY IS NOT INTENDED TO BEUSED IN ISOLATION BUT SHOULD BE INTERPRETED IN CONJUNCTIONWITH OTHER DIAGNOSTIC AND CLINICAL INFORMATION. Free Triiodothyronine 2.98 pg/mL 2.18-3.98 [facility] Bedside Influenza Type A Antigen Negative [facility] Comment on above: Negative for Flu A p rotein antigen. Infection due to Flu Acannot be ruled out. Flu A antigen in the sample may bebelow the detection limit of the test. Bedside Influenza Type B Antigen Negative [facility] Comment on above: Negative for Flu B p rotein antigen. Infection due to Flu Bcannot be ruled out. Flu B antigen in the sample may bebelow the detection limit of the test. Eosinophils # (Auto) 0.1 10 3/uL 0.0-0.7 [facility] Immature Granulocyte # (Auto) 0.02 10 3/uL 0.00-0.03 [facility] Platelet mean volume Auto (B ld) [Entitic vol]on 10-18-2023 Platelet mean volume (Bld) [Entitic vol] 9.4 fL 9.5-13.5 [facility] Platelets Auto (Bld) [#/Vol] on 10-18-2023 Platelets (Bld) [#/Vol] 213 10 3/uL 150-450 [facility] RBC Auto (Bld) [#/Vol]on RBC (Bld) [#/Vol] 4.88 10 6/uL 4.70-6.10 [facility] Serum or plasma albumin/glob ulin mass ratioon 10-18-2023 Albumin/Globulin [Mass ratio] 1.2 {ratio} [facility] Serum or plasma anion gap de terminationon 10-18-2023 Anion gap [Moles/Vol] 12.0 mmol/L [facility] Alanine aminotransferase [En zymatic activity/volume] in Serum or PlasmaOrdered By: Shaquille Whitten on 07-02-2023 ALT [Catalytic activity/Vol] 14 U/L 7-52 [facility] Albumin [Mass/volume] in Ser um or Plasma by Bromocresol green (BCG) dye binding methoOrdered By: Shaquille Whitten on 07-02-2023 Albumin BCG dye [Mass/Vol] 4.3 g/dL 3.5-5.7 [facility] Alkaline phosphatase [Enzyma tic activity/volume] in Serum or PlasmaOrdered By: Shaquille Whitten on 07-02-2023 ALP [Catalytic activity/Vol] 54 U/L 34-104 [facility] Aspartate aminotransferase [ Enzymatic activity/volume] in Serum or PlasmaOrdered By: Shaquille Whitten on 07-02-2023 AST [Catalytic activity/Vol] 17 U/L 13-39 [facility] Basophils Auto (Bld) [#/Vol] Ordered By: Shaquille Whitten on 07-02-2023 Basophils (Bld) [#/Vol] 0.0 10*3/uL 0.0-0.2 [facility] Basophils/100 WBC Auto (Bld) Ordered By: Shaquille Whitten on 07-02-2023 Basophils/100 WBC (Bld) 0.3 % . [facility] Bilirubin.total [Mass/volume ] in Serum or PlasmaOrdered By: Shaquille Whitten on 07-02-2023 Bilirubin [Mass/Vol] 1.1 mg/dL 0.3-1.0 [facility] Calcium [Mass/volume] in Ser um or PlasmaOrdered By: Shaquille Whitten on 07-02-2023 Calcium [Mass/Vol] 9.2 mg/dL 8.6-10.3 [facility] Carbon dioxide, total [Moles /volume] in Serum or PlasmaOrdered By: Shaquille Whitten on 07-02-2023 CO2 [Moles/Vol] 29.8 mmol/L 21.0-31.0 [facility] Chloride [Moles/volume] in S wander or PlasmaOrdered By: Shaquille Whitten on 07-02-2023 Chloride [Moles/Vol] 101 mmol/L 98-107 [facility] Cholesterol [Mass/volume] in Serum or PlasmaOrdered By: Shaquille Whitten on 07-02-2023 Cholesterol [Mass/Vol] 172 mg/dL 140-200 [facility] Comment on above: Chol less than 200 m g/dl low riskChol 201-239 mg/dl borderline riskChol 240 mg/dl and greater high risk Cholesterol in LDL Calc [Mas s/Vol]Ordered By: Shaquille Cookmer on 07-02-2023 Cholesterol in LDL [Mass/Vol] 116 mg/dL 0-100 [facility] Comment on above: LDL ATP III CLASSIFI CATIONLDL less than 100 mg/dL OptimalLDL 100-129 mg/dL Near or above optimalLDL 130-159 mg/dL Borderline highLDL 160-189 mg/dL HighLDL greater than 189 mg/dL Very high Cholesterol in VLDL Calc [Ma ss/Vol]Ordered By: Shaquilledolly Whitten on 07-02-2023 Cholesterol in VLDL [Mass/Vol] 16 mg/dL [facility] Complete Blood Count Auto Di ffon 07-02-2023 Basophils (Bld) [#/Vol] 0.0 10*3/uL Normal 0.0-0.2 [facility] Comment on above: Order Comment: Reaso n for Exam Essential hypertension;Pre-diabetes;Medication FASTING monitoring en Result Comment: PERF ORMED BY: [place] [address] PATHOLOGIST [employer] ALMA GONZALEZ M.D. Performed By: #### L IPID, CMP, CBC #### [facility] [address] [place] [id number] [place] Basophils/100 WBC (Bld) 0.3 % Normal . [facility] Comment on above: Order Comment: Reaso n for Exam Essential hypertension;Pre-diabetes;Medication FASTING monitoring en Performed By: #### L IPID, CMP, CBC #### [facility] [address] [place] [id number] [place] Eosinophils (Bld) [#/Vol] 0.1 10*3/uL Normal 0.0-0.45 [facility] Comment on above: Order Comment: Reaso n for Exam Essential hypertension;Pre-diabetes;Medication FASTING monitoring en Performed By: #### L IPID, CMP, CBC #### [facility] [address] [place] [id number] [place] Eosinophils/100 WBC (Bld) 2.0 % Normal . [facility] Comment on above: Order Comment: Reaso n for Exam Essential hypertension;Pre-diabetes;Medication FASTING monitoring en Performed By: #### L IPID, CMP, CBC #### [facility] [address] Erythrocyte distribution width (RBC) [Ratio] 13.3 % Normal 12.0-14.8 [facility] Comment on above: Order Comment: Reaso n for Exam Essential hypertension;Pre-diabetes;Medication FASTING monitoring en Performed By: #### L IPID, CMP, CBC #### [facility] [address] Hematocrit (Bld) [Volume fraction] 44.5 % Normal 38.8-50.0 [facility] Comment on above: Order Comment: Reaso n for Exam Essential hypertension;Pre-diabetes;Medication FASTING monitoring en Performed By: #### L IPID, CMP, CBC #### [address] Hemoglobin (Bld) [Mass/Vol] 15.1 g/dL Normal 13.0-17.0 [facility] Comment on above: Order Comment: Reaso n for Exam Essential hypertension;Pre-diabetes;Medication FASTING monitoring en Performed By: #### L IPID, CMP, CBC #### [address] Lymphocytes (Bld) [#/Vol] 1.7 10*3/uL Normal 1.00-4.8 [facility] Comment on above: Order Comment: Reaso n for Exam Essential hypertension;Pre-diabetes;Medication FASTING monitoring en Performed By: #### L IPID, CMP, CBC #### [address] Lymphocytes/100 WBC (Bld) 22.6 % Normal . [facility] Comment on above: Order Comment: Reaso n for Exam Essential hypertension;Pre-diabetes;Medication FASTING monitoring en Performed By: #### L IPID, CMP, CBC #### [address] MCH (RBC) [Entitic mass] 30.9 pg Normal 27.5-35.2 [facility] Comment on above: Order Comment: Reaso n for Exam Essential hypertension;Pre-diabetes;Medication FASTING monitoring en Performed By: #### L IPID, CMP, CBC #### [facility] [address] MCV (RBC) [Entitic vol] 90.9 fL Normal 83.5-101 [facility] Comment on above: Order Comment: Reaso n for Exam Essential hypertension;Pre-diabetes;Medication FASTING monitoring en Performed By: #### L IPID, CMP, CBC #### [facility] [address] Mean Corpuscular HGB Conc 33.9 g/dL Normal 32.5-35.6 [facility] Comment on above: Order Comment: Reaso n for Exam Essential hypertension;Pre-diabetes;Medication FASTING monitoring en Performed By: #### L IPID, CMP, CBC #### [facility] [address] Monocytes (Bld) [#/Vol] 0.8 10*3/uL Normal 0.0-0.8 [facility] Comment on above: Order Comment: Reaso n for Exam Essential hypertension;Pre-diabetes;Medication FASTING monitoring en Performed By: #### L IPID, CMP, CBC #### [facility] [address] [place] [id number] [place] Monocytes/100 WBC (Bld) 10.7 % Normal . [facility] Comment on above: Order Comment: Reaso n for Exam Essential hypertension;Pre-diabetes;Medication FASTING monitoring en Performed By: #### L IPID, CMP, CBC #### [facility] [address] [place] [id number] [place] Neutrophils (Bld) [#/Vol] 4.8 10*3/uL Normal 1.8-7.7 [facility] Comment on above: Order Comment: Reaso n for Exam Essential hypertension;Pre-diabetes;Medication FASTING monitoring en Performed By: #### L IPID, CMP, CBC #### [facility] [address] [place] [id number] [place] Neutrophils/100 WBC (Bld) 64.4 % Normal . [facility] Comment on above: Order Comment: Reaso n for Exam Essential hypertension;Pre-diabetes;Medication FASTING monitoring en Performed By: #### L IPID, CMP, CBC #### [facility] [address] NRBC% 0.2 /100{WBC} Normal 0-0.5 [facility] Comment on above: Order Comment: Reaso n for Exam Essential hypertension;Pre-diabetes;Medication FASTING monitoring en Performed By: #### L IPID, CMP, CBC #### [facility] [address] Platelet mean volume (Bld) [Entitic vol] 7.8 fL Normal 6.6-10.1 [facility] Comment on above: Order Comment: Reaso n for Exam Essential hypertension;Pre-diabetes;Medication FASTING monitoring en Performed By: #### L IPID, CMP, CBC #### [address] Platelets (Bld) [#/Vol] 212 10*3/uL Normal 150-450 [facility] Comment on above: Order Comment: Reaso n for Exam Essential hypertension;Pre-diabetes;Medication FASTING monitoring en Performed By: #### L IPID, CMP, CBC #### [address] RBC (Bld) [#/Vol] 4.90 10*6/uL Normal 3.90-5.60 [facility] Comment on above: Order Comment: Reaso n for Exam Essential hypertension;Pre-diabetes;Medication FASTING monitoring en Performed By: #### L IPID, CMP, CBC #### [facility] [address] [place] [address] WBC (Bld) [#/Vol] 7.4 10*3/uL Normal 4.1-10.5 [facility] Comment on above: Order Comment: Reaso n for Exam Essential hypertension;Pre-diabetes;Medication FASTING monitoring en Performed By: #### L IPID, CMP, CBC #### [facility] [address] [place] [address] Comprehensive Metabolic Pane eyal 07-02-2023 Albumin [Mass/Vol] 4.3 g/dL Normal 3.5-5.7 [facility] Comment on above: Order Comment: Reaso n for Exam Essential hypertension;Pre-diabetes Reason for Exam Encounter for screening for cardiovascular disorders Performed By: #### L IPID, CMP, CBC #### [facility] [address] Albumin/Globulin [Mass ratio] 2.0 {ratio} Normal [facility] Comment on above: Order Comment: Reaso n for Exam Essential hypertension;Pre-diabetes Reason for Exam Encounter for screening for cardiovascular disorders Performed By: #### L IPID, CMP, CBC #### [facility] [address] ALP [Catalytic activity/Vol] 54 U/L Normal 34-104 [facility] Comment on above: Order Comment: Reaso n for Exam Essential hypertension;Pre-diabetes Reason for Exam Encounter for screening for cardiovascular disorders Performed By: #### L IPID, CMP, CBC #### [facility] [address] ALT [Catalytic activity/Vol] 14 U/L Normal 7-52 [facility] Comment on above: Order Comment: Reaso n for Exam Essential hypertension;Pre-diabetes Reason for Exam Encounter for screening for cardiovascular disorders Performed By: #### L IPID, CMP, CBC #### [facility] [address] [place] [id number] [facility] Anion gap [Moles/Vol] 9.8 mmol/L Normal 6.0-15.0 [facility] Comment on above: Order Comment: Reaso n for Exam Essential hypertension;Pre-diabetes Reason for Exam Encounter for screening for cardiovascular disorders Performed By: #### L IPID, CMP, CBC #### [facility] [address] [place] [id number] [place] AST [Catalytic activity/Vol] 17 U/L Normal 13-39 [facility] Comment on above: Order Comment: Reaso n for Exam Essential hypertension;Pre-diabetes Reason for Exam Encounter for screening for cardiovascular disorders Performed By: #### L IPID, CMP, CBC #### [facility] [address] [place] [address] [place] Bilirubin [Mass/Vol] 1.1 mg/dL High 0.3-1.0 [facility] Comment on above: Order Comment: Reaso n for Exam Essential hypertension;Pre-diabetes Reason for Exam Encounter for screening for cardiovascular disorders Performed By: #### L IPID, CMP, CBC #### [facility] [address] Calcium [Mass/Vol] 9.2 mg/dL Normal 8.6-10.3 [facility] Comment on above: Order Comment: Reaso n for Exam Essential hypertension;Pre-diabetes Reason for Exam Encounter for screening for cardiovascular disorders Performed By: #### L IPID, CMP, CBC #### [facility] [address] [place] [id number] [place] Chloride [Moles/Vol] 101 mmol/L Normal 98-107 [facility] Comment on above: Order Comment: Reaso n for Exam Essential hypertension;Pre-diabetes Reason for Exam Encounter for screening for cardiovascular disorders Performed By: #### L IPID, CMP, CBC #### [facility] [address] [place] [id number] [place] CO2 [Moles/Vol] 29.8 mmol/L Normal 21.0-31.0 [facility] Comment on above: Order Comment: Reaso n for Exam Essential hypertension;Pre-diabetes Reason for Exam Encounter for screening for cardiovascular disorders Performed By: #### L IPID, CMP, CBC #### [facility] [address] [place] [id number] [place] Creatinine [Mass/Vol] 1.15 mg/dL Normal 0.70-1.30 [facility] Comment on above: Order Comment: Reaso n for Exam Essential hypertension;Pre-diabetes Reason for Exam Encounter for screening for cardiovascular disorders Performed By: #### L IPID, CMP, CBC #### [facility] [address] [place] [id number] [place] GFR/1.73 sq M.predicted MDRD (S/P/Bld) [Vol rate/Area] mL/min/{1.73_m2} Normal [facility] Comment on above: Order Comment: Reaso n for Exam Essential hypertension;Pre-diabetes Reason for Exam Encounter for screening for cardiovascular disorders Performed By: #### L IPID, CMP, CBC #### [facility] [address] [place] [id number] [facility] Globulin (S) [Mass/Vol] 2.1 g/dL Normal [facility] Comment on above: Order Comment: Reaso n for Exam Essential hypertension;Pre-diabetes Reason for Exam Encounter for screening for cardiovascular disorders Performed By: #### L IPID, CMP, CBC #### [facility] [address] Glucose [Mass/Vol] 102 mg/dL High 70-100 [facility] Comment on above: Order Comment: Reaso n for Exam Essential hypertension;Pre-diabetes Reason for Exam Encounter for screening for cardiovascular disorders Result Comment: [facility] Glucose Reference Range is dependent on time and content of last meal. Glucose of more than 200 mg/dL in a nonstressed, ambulatory subject supports the diagnosis of Diabetes Mellitus. ADA recommended reference range Performed By: #### L IPID, CMP, CBC #### [facility] [address] Potassium [Moles/Vol] 4.6 mmol/L Normal 3.5-5.1 [facility] Comment on above: Order Comment: Reaso n for Exam Essential hypertension;Pre-diabetes Reason for Exam Encounter for screening for cardiovascular disorders Performed By: #### L IPID, CMP, CBC #### [facility] [address] Protein [Mass/Vol] 6.4 g/dL Normal 6.4-8.9 [facility] Comment on above: Order Comment: Reaso n for Exam Essential hypertension;Pre-diabetes Reason for Exam Encounter for screening for cardiovascular disorders Performed By: #### L IPID, CMP, CBC #### [facility] [address] [place] [id number] [place] Sodium [Moles/Vol] 136 mmol/L Normal 136-145 [facility] Comment on above: Order Comment: Reaso n for Exam Essential hypertension;Pre-diabetes Reason for Exam Encounter for screening for cardiovascular disorders Performed By: #### L IPID, CMP, CBC #### [facility] [address] [place] [id number] [place] Urea nitrogen [Mass/Vol] 18 mg/dL Normal 7-25 [facility] Comment on above: Order Comment: Reaso n for Exam Essential hypertension;Pre-diabetes Reason for Exam Encounter for screening for cardiovascular disorders Performed By: #### L IPID, CMP, CBC #### [facility] [address] Creatinine [Mass/volume] in Serum or PlasmaOrdered By: Shaquille Whitten on 07-02-2023 Creatinine [Mass/Vol] 1.15 mg/dL 0.70-1.30 [facility] Eosinophils Auto (Bld) [#/Vo l]Ordered By: Shaquille Whitten on 07-02-2023 Eosinophils (Bld) [#/Vol] 0.1 10*3/uL 0.0-0.45 [facility] Eosinophils/100 WBC Auto (Bl d)Ordered By: Shaquille Whitten on 07-02-2023 Eosinophils/100 WBC (Bld) 2.0 % . [facility] Erythrocyte distribution wid th Auto (RBC) [Ratio]Ordered By: Shaquille Whitten on 07-02-2023 Erythrocyte distribution width (RBC) [Ratio] 13.3 % 12.0-14.8 [facility] Globulin Calc (S) [Mass/Vol] Ordered By: Shaquille Whitten on 07-02-2023 Globulin (S) [Mass/Vol] 2.1 g/dL [facility] Glucose [Mass/volume] in Ser um or PlasmaOrdered By: Shaquille Whitten on 07-02-2023 Glucose [Mass/Vol] 102 mg/dL 70-100 [facility] Comment on above: ADA recommended refe rence rangeRandom Glucose Reference Range is dependent on time and content of last meal. Glucose of more than 200 mg/dL in a nonstressed, ambulatory subject supports the diagnosis of Diabetes Mellitus. Hematocrit Auto (Bld) [Volum e fraction]Ordered By: Shaquille Whitten on 07-02-2023 Hematocrit (Bld) [Volume fraction] 44.5 % 38.8-50.0 [facility] Hemoglobin [Mass/volume] in BloodOrdered By: Shaquille Whitten on 07-02-2023 Hemoglobin (Bld) [Mass/Vol] 15.1 g/dL 13.0-17.0 [facility] Leukocytes [#/volume] correc natalio for nucleated erythrocytes in Blood by Automated counOrdered By: Shaquille Whitten on 07-02-2023 WBC corrected for nucl RBC Auto (Bld) [#/Vol] 7.4 10*3/uL 4.1-10.5 [facility] Lipid Panelon 07-02-2023 Cholesterol [Mass/Vol] 172 mg/dL Normal 140-200 [facility] Comment on above: Order Comment: Reaso n for Exam Essential hypertension;Pre-diabetes Reason for Exam Encounter for screening for cardiovascular disorders Result Comment: Chol less than 200 mg/dl low risk Chol 201-239 mg/dl borderline risk Chol 240 mg/dl and greater high risk Performed By: #### L IPID, CMP, CBC #### [facility] [address] [place] [id number] [place] Cholesterol in HDL [Mass/Vol] 40 mg/dL Normal 23-92 [facility] Comment on above: Order Comment: Reaso n for Exam Essential hypertension;Pre-diabetes Reason for Exam Encounter for screening for cardiovascular disorders Result Comment: HDL CHOL ATP-III CLASSIFICATION Cardiovascular Risk HDL > or equal to 60 mg/dL LOW HDL < 40 mg/dL HIGH Performed By: #### L IPID, CMP, CBC #### [facility] [address] Cholesterol.total/Merna sterol in HDL [Mass ratio] 4.3 {ratio} Normal <5.0 [facility] Comment on above: Order Comment: Reaso n for Exam Essential hypertension;Pre-diabetes Reason for Exam Encounter for screening for cardiovascular disorders Result Comment: PERF ORMED BY: [place] [address] PATHOLOGIST [employer] ALMA GONZALEZ M.D. Performed By: #### L IPID, CMP, CBC #### [facility] [address] [place] [address] [place] LDL Cholesterol,Calculated 116 mg/dL High 0-100 [facility] Comment on above: Order Comment: Reaso [...] By: #### L IPID, CMP, CBC #### [facility] [address] Triglyceride w/Reflex 80 mg/dL Normal 0-149 [facility] Comment on above: Order Comment: Reaso [...] By: #### L IPID, CMP, CBC #### [facility] [address] VLDL CHOLESTEROL 16 mg/dL Normal [facility] Comment on above: Order Comment: Reaso n for Exam Essential hypertension;Pre-diabetes Reason for Exam Encounter for screening for cardiovascular disorders Performed By: #### L IPID, CMP, CBC #### [facility] [address] Lymphocytes Auto (Bld) [#/Vo l]Ordered By: Shaquille Whitten on 07-02-2023 Lymphocytes (Bld) [#/Vol] 1.7 10*3/uL 1.00-4.8 [facility] Lymphocytes/100 WBC Auto (Bl d)Ordered By: Shaquille Whitten on 07-02-2023 Lymphocytes/100 WBC (Bld) 22.6 % . [facility] MCH Auto (RBC) [Entitic mass ]Ordered By: Shaquille Whitten on 07-02-2023 MCH (RBC) [Entitic mass] 30.9 pg 27.5-35.2 [facility] MCHC Auto (RBC) [Mass/Vol]Or dered By: Shaquille Whitten on 07-02-2023 MCHC (RBC) [Mass/Vol] 33.9 g/dL 32.5-35.6 [facility] MCV Auto (RBC) [Entitic vol] Ordered By: Shaquille Whitten on 07-02-2023 MCV (RBC) [Entitic vol] 90.9 fL 83.5-101 [facility] Monocytes Auto (Bld) [#/Vol] Ordered By: Shaquille Whitten on 07-02-2023 Monocytes (Bld) [#/Vol] 0.8 10*3/uL 0.0-0.8 [facility] Monocytes/100 WBC Auto (Bld) Ordered By: Shaquille Whitten on 07-02-2023 Monocytes/100 WBC (Bld) 10.7 % . [facility] Neutrophils Auto (Bld) [#/Vo l]Ordered By: Shaquille Whitten on 07-02-2023 Neutrophils (Bld) [#/Vol] 4.8 10*3/uL 1.8-7.7 [facility] Neutrophils/100 WBC Auto (Bl d)Ordered By: Shaquille Whitten on 07-02-2023 Neutrophils/100 WBC (Bld) 64.4 % . [facility] No Panel InformationOrdered By: Shaquille Whitten on 07-02-2023 Estimated GFR (CKD-EPI) > 60.0 mL/Min [facility] Creatinine Clearance (Chem N/A [facility] Nucleated erythrocytes [Pres ence] in Blood by Automated countOrdered By: Shaquille Whitten on 07-02-2023 Nucleated RBC Auto Ql (Bld) 0.2 /100{WBC} 0-0.5 [facility] PSA Screen (Yearly Only)on 1 PSA Screen (Yearly Only) 2.130 ng/mL Normal 0.000-4.000 [facility] Comment on above: Order Comment: Reaso n for Exam Screening for prostate cancer Result Comment: PERF ORMED BY: [place] [address] PATHOLOGIST [employer] ALMA GONZALEZ M.D. Performed By: #### P SAS #### [address] Platelet mean volume Auto (B ld) [Entitic vol]Ordered By: Shaquille Whitten on 07-02-2023 Platelet mean volume (Bld) [Entitic vol] 7.8 fL 6.6-10.1 [facility] Platelets Auto (Bld) [#/Vol] Ordered By: Shaquille Whitten on 07-02-2023 Platelets (Bld) [#/Vol] 212 10*3/uL 150-450 [facility] Potassium [Moles/volume] in Serum or PlasmaOrdered By: Shaquille Whitten on 07-02-2023 Potassium [Moles/Vol] 4.6 mmol/L 3.5-5.1 [facility] Prostate specific Ag [Mass/v olume] in Serum or PlasmaOrdered By: Shaquille Whitten on 07-02-2023 Prostate specific Ag [Mass/Vol] 2.130 ng/mL 0.000-4.000 [facility] Protein [Mass/volume] in Ser um or PlasmaOrdered By: Shaquille Whitten on 07-02-2023 Protein [Mass/Vol] 6.4 g/dL 6.4-8.9 [facility] RBC Auto (Bld) [#/Vol]Ordere d By: Shaquille Whitten on 07-02-2023 RBC (Bld) [#/Vol] 4.90 10*6/uL 3.90-5.60 [facility] Serum or plasma albumin/glob ulin mass ratioOrdered By: Shaquille Whitten on 07-02-2023 Albumin/Globulin [Mass ratio] 2.0 {ratio} [facility] Serum or plasma anion gap de terminationOrdered By: Shaquille Whitten on 07-02-2023 Anion gap [Moles/Vol] 9.8 mmol/L 6.0-15.0 [facility] Serum or plasma high density lipoprotein (HDL) cholesterol measurementOrdered By: Shaquille Whitten on 07-02-2023 Cholesterol in HDL [Mass/Vol] 40 mg/dL 23-92 [facility] Comment on above: HDL CHOL ATP-III CLA SSIFICATION Cardiovascular RiskHDL > or equal to 60 mg/dL LOWHDL < 40 mg/dL HIGH Serum or plasma total choles terol/high density lipoprotein (HDL) cholesterol mass ratOrdered By: Shaquille Whitten on 07-02-2023 Cholesterol.total/Merna sterol in HDL [Mass ratio] 4.3 {ratio} <5.0 [facility] Sodium [Moles/volume] in Ser um or PlasmaOrdered By: Shaquille Cookmer on 07-02-2023 Sodium [Moles/Vol] 136 mmol/L 136-145 [facility] Triglyceride [Mass/volume] i n Serum or PlasmaOrdered By: Shaquille Whitten on 07-02-2023 Triglyceride [Mass/Vol] 80 mg/dL 0-149 [facility] Comment on above: TRIG ATP III CLASSIF ICATIONTRIG less than 150 mg/dL NormalTRIG 150-199 mg/dL Borderline highTRIG 200-500 mg/dL High TRIG greater than 500 mg/dL Very highStandard traceable to the Center for Disease Conrtrol and Prevention (CDC) test method. Urea nitrogen [Mass/volume] in Serum or PlasmaOrdered By: Shaquille Whitten on 07-02-2023 Urea nitrogen [Mass/Vol] 18 mg/dL 7-25 [facility] WBC Auto (Bld) [#/Vol]Ordere d By: Shaquille Cookmer on 07-02-2023 WBC (Bld) [#/Vol] 7.4 10*3/uL 4.1-10.5 [facility] XR knee LT 4V*on 06-12-2023 XR knee LT 4V* [place] [address] XRay Report Signed Patient: Ulises Perrin MR#: [id number] : 1960 Acct:[id number] Age/Sex: 63 / M ADM Date: 06/12/23 Loc: XDUCLY Room: Type: [facility] Attending Dr: Babs Kim APRN Copies to: [...] Sandra Duke M.D.06/12/2023 2:19 PM Dictation Location: [place] [address] Transcribed By: SONIA 06/12/23 141 Dictated By: Sandra Duke MD 06/12/231417 Signed By: 06/12/23 141 [facility] Medication Managementon 05-07 Medication Management Entered by Yon De Paz MD on May 27, 2020 13:34:43 EDT From: Yon De Paz MD [id number] Sent: 05/27/2020 13:34:43 EDT Subject: Medication Management Documented Complete:tamsulosin (tamsulosin 0.4 mg oral capsule) Signed by Yon De Paz MD 05/27/2020 13:34:00 Approved tamsulosin (TAMSULOSIN HCL 0.4 MG CAPSULE) TAKE 1 CAPSULE BY MOUTH EVERY DAY Qty: 30 cap(s) Days Supply: 30 Refills: 10 Substitutions Allowed Route To Pharmacy - [facility]/pharmacy #[id number] Patient matched by Yon De Paz MD on 05/27/2020 13:34:34 EDT From: [facility]/pharmacy #[id number] To: Yon De Paz MD, MD [...] 10 Substitutions Allowed Notes from Pharmacy: Normal [facility] LIPID PROFILEon 04-10-2020 CHOL-HDL RATIO NORM SEE BELOW Normal [facility] Comment on above: Result Comment: 3.3 - 4.4 LOW RISK 4.4 - 7.1 AVERAGE RISK 7.1 - 11.0 MODERATE RISK >11.0 HIGH RISK Performed By: #### C MP, LIPID, PSASC #### [facility] [address] [place] [address] Fanny Sandra Cholesterol [Mass/Vol] 180 mg/dL Normal <=200 Th [facility] Comment on above: Performed By: #### C MP, LIPID, PSASC #### [facility] [address] [place] [address] Fanny Sandra Cholesterol in HDL [Mass/Vol] 35 mg/dL Normal [facility] Comment on above: Performed By: #### C MP, LIPID, PSASC #### [facility] [address] [place] [address] Fanny Sandra Cholesterol in HDL [Mass/Vol] > or = 60 mg/dl - LOW CARDIOVASCULAR RISK <40 mg/dl - HIGH CARDIOVASCULAR RISK Normal [facility] Comment on above: Performed By: #### C MP, LIPID, PSASC #### [facility] [address] [place] [address] Fanny Sandra Cholesterol in LDL [Mass/Vol] 104.8 mg/dL Normal [facility] Comment on above: Performed By: #### C MP, LIPID, PSASC #### [facility] [address] [place], [place] [id number] Fanny Sandra Cholesterol in LDL [Mass/Vol] SEE BELOW Normal [facility] Comment on above: Result Comment: <100 mg/dl OPTIMAL 100 - 129 mg/dl NEAR OR ABOVE OPTIMAL 130 - 159 mg/dl BORDERLINE HIGH 160 - 189 mg/dl HIGH >190 mg/dl VERY HIGH Performed By: #### C MP, LIPID, PSASC #### [facility] [address] [place], [place] [address] Fanny Sandra Cholesterol.total/Merna sterol in HDL [Mass ratio] 5.1 {ratio} Normal [facility] Comment on above: Performed By: #### C MP, LIPID, PSASC #### [facility] [address] [place], [place] [address] Fanny Sandra Triglyceride [Mass/Vol] 201 mg/dL Critically high <=150 [facility] Comment on above: Performed By: #### C MP, LIPID, PSASC #### [facility] [address] [place] [id number] Fanny Sandra VLDL CALC 40.2 mg/dL Normal [facility] Comment on above: Performed By: #### C MP, LIPID, PSASC #### [facility] [address] [place], [place] [id number] Fanny Hermosilloen PROF 14(COMP METB)on 020 Albumin [Mass/Vol] 3.9 g/dL Normal 3.5-5.0 [facility] Comment on above: Performed By: #### C MP, LIPID, PSASC #### [facility] [address] [place], [place] [id number] Fanny Sandra Albumin/Globulin [Mass ratio] 1.3 {ratio} Normal [facility] Comment on above: Performed By: #### C MP, LIPID, PSASC #### [facility] [address] [place], [place] [id number] Fanny Sandra ALP [Catalytic activity/Vol] 61 U/L Normal 38-126 [facility] Comment on above: Performed By: #### C MP, LIPID, PSASC #### [facility] [address] [place], [place] [id number] Fanny Sandra ALT [Catalytic activity/Vol] 37 U/L Normal 21-72 [facility] Comment on above: Performed By: #### C MP, LIPID, PSASC #### [facility] [address] [place] [id number] Fanny Sandra Anion gap [Moles/Vol] 8.4 mmol/L Normal [facility] Comment on above: Performed By: #### C MP, LIPID, PSASC #### [facility] [address] [place] [address] Fanny Sandra AST [Catalytic activity/Vol] 20 U/L Normal 17-59 [facility] Comment on above: Performed By: #### C MP, LIPID, PSASC #### [facility] [address] [place] [address] Fanny Sandra Bilirubin Ql (U) 0.7 mg/dL Normal 0.2-1.3 [facility] Comment on above: Performed By: #### C MP, LIPID, PSASC #### [facility] [address] [place] [address] Fanny Sandra Calcium [Mass/Vol] 8.9 mg/dL Normal 8.4-10.2 [facility] Comment on above: Performed By: #### C MP, LIPID, PSASC #### [facility] [address] [place] [address] Fanny Sandra Chloride [Moles/Vol] 103 mmol/L Normal 98-107 [facility] Comment on above: Performed By: #### C MP, LIPID, PSASC #### [facility] [address] [place] [address] Fanny Sandra CO2 [Moles/Vol] 32.6 mmol/L Critically high 22.0-30.0 [facility] Comment on above: Performed By: #### C MP, LIPID, PSASC #### [facility] [address] [place] [address] Fanny Sandra Creatinine [Mass/Vol] 1.09 mg/dL Normal 0.66-1.25 [facility] Comment on above: Performed By: #### C MP, LIPID, PSASC #### [facility] [address] [place] [address] Fanny Sandra EGFR-AF QATARI >60 Normal >=60 [facility] Comment on above: Performed By: #### C MP, LIPID, PSASC #### [facility] [address] [place], [place] [address] Fanny Sandra EGFR-NON AF QATARI >60 Normal >=60 [facility] Comment on above: Performed By: #### C MP, LIPID, PSASC #### [facility] [address] [place], [place] [id number] Fanny Sandra Globulin (S) [Mass/Vol] 3.1 g/dL Normal [facility] Comment on above: Performed By: #### C MP, LIPID, PSASC #### [facility] [address] [place], [place] [id number] Fanny Sandra Glucose [Mass/Vol] 105 mg/dL Normal 74-106 [facility] Comment on above: Performed By: #### C MP, LIPID, PSASC #### [facility] [address] [place], [place] [address] Fanny Sandra Potassium [Moles/Vol] 4.0 mmol/L Normal 3.4-5.0 [facility] Comment on above: Performed By: #### C MP, LIPID, PSASC #### [facility] [address] [place] [address] Fanny Sandra Protein [Mass/Vol] 7.0 g/dL Normal 6.1-8.2 [facility] Comment on above: Performed By: #### C MP, LIPID, PSASC #### [facility] [address] [place] [address] Fanny Sandra Sodium [Moles/Vol] 140 mmol/L Normal 137-145 [facility] Comment on above: Performed By: #### C MP, LIPID, PSASC #### [facility] [address] [place] [address] Fanny Sandra Urea nitrogen [Mass/Vol] 13.0 mg/dL Normal 9.0-20.0 [facility] Comment on above: Performed By: #### C MP, LIPID, PSASC #### [facility] [address] [place], [place] [id number] Fanny Sandra Urea nitrogen/Creatinine [Mass ratio] 11.9 mg/mg Normal [facility] Comment on above: Performed By: #### C MP, LIPID, PSASC #### [facility] [address] [place], [place] [address] Fanny Flores Vital Signs Date Time Vital Sign Value Performing Clinician Facility 11-10-2023 08:43-0500 Body height 187.96 cm DO Shaquille Whitten Work Phone: [facility] 11-10-2023 08:43-0500 Body mass index (BMI) [Ratio] 35.6 kg/m2 DO Shaquille Whitten Work Phone: [facility] 11-10-2023 08:43-0500 Body temperature 97.8 [degF] DO Shaquille Whitten Work Phone: [facility] 11-10-2023 08:43-0500 Body weight 126.09 kg DO Shaquille Whitten Work Phone: [facility] 11-10-2023 08:43-0500 Diastolic blood pressure 62 mm[Hg] DO Shaquille Whitten Work Phone: [facility] 11-10-2023 08:43-0500 Heart rate 69 /min DO Shaquille Whitten Work Phone: [facility] 11-10-2023 08:43-0500 Respiratory rate 16 /min DO Shaquille Whitten Work Phone: [facility] 11-10-2023 08:43-0500 SaO2% (BldA) [Mass fraction] 97 % DO Shaquille Whitten Work Phone: [facility] 11-10-2023 08:43-0500 Systolic blood pressure 112 mm[Hg] DO Shaquille Whitten Work Phone: [facility] 10-28-2023 10:35-0500 Body height 187.96 cm [facility] [place] 10-28-2023 10:35-0500 Body mass index (BMI) [Ratio] 35.6 kg/m2 [facility] 10-28-2023 10:35-0500 Body weight 126.09 kg [facility] [place] 10-28-2023 10:35-0500 Diastolic blood pressure 70 mm[Hg] [facility] 10-28-2023 10:35-0500 Heart rate 79 /min [facility] [place] 10-28-2023 10:35-0500 Respiratory rate 16 /min [facility] 10-28-2023 10:35-0500 SaO2% (BldA) [Mass fraction] 94 % [facility] 10-28-2023 10:35-0500 Systolic blood pressure 118 mm[Hg] [facility] 02-21-2023 10:35-0400 Body height 187.96 cm Allie Tapiamond Other [employer] Other 02-21-2023 10:35-0400 Body mass index (BMI) [Ratio] 36.69 kg/m2 Allie Bryanna Other [employer] Other 02-21-2023 10:35-0400 Body temperature 97.7 [degF] Allie Bryanna Other [employer] Other 02-21-2023 10:35-0400 Body weight 129.64 kg Allie Bryanna Other [employer] Other 02-21-2023 10:35-0400 Diastolic blood pressure 90 mm[Hg] Allie Bryanna Other [employer] Other 02-21-2023 10:35-0400 Respiratory rate 18 /min Allie Bryanna Other [employer] Other 02-21-2023 10:35-0400 SaO2% (BldA) [Mass fraction] 97 % Allie Bryanna Other [employer] Other 02-21-2023 10:35-0400 Systolic blood pressure 144 mm[Hg] Allie Bryanna Other [employer] Other 04-30-2022 09:00-0400 Body height 187.96 cm Shaquille Whitten Other [employer] Other 04-30-2022 09:00-0400 Body mass index (BMI) [Ratio] 35.21 kg/m2 Shaquille Whitten Other [employer] Other 04-30-2022 09:00-0400 Body weight 124.42 kg Shaquille Whitten Other [employer] Other 04-30-2022 09:00-0400 Diastolic blood pressure 88 mm[Hg] Shaquille Whitten Other [employer] Other 04-30-2022 09:00-0400 Respiratory rate 18 /min Shaquille Whitten Other [employer] Other 04-30-2022 09:00-0400 SaO2% (BldA) [Mass fraction] 97 % Shaquille Whitten Other [employer] Other 04-30-2022 09:00-0400 Systolic blood pressure 138 mm[Hg] Shaquille Whitten Other [employer] Other Encounters Encounter Date Encounter Type Care Provider Facility Start: 11-25-2023 End: 11-25-2023 ambulatory Shaquille Alarcon Facility:[facility] Start: 11-25-2023 End: 11-25-2023 ambulatory DO Shaquille Whitten Work Phone: [facility] Work Phone: Start: 11-25-2023 End: 11-25-2023 Patient encounter procedure DO Shaquille Whitten Work Phone: [facility] [place] Work Phone: Start: 11-10-2023 End: 11-10-2023 Patient encounter procedure DO Shaquille Whitten Work Phone: [facility] Vascular Surgery Work Phone: Start: 10-31-2023 End: 10-31-2023 ambulatory [facility] Start: 10-28-2023 End: 10-28-2023 ambulatory [facility] Work Phone: Start: 10-28-2023 End: 10-28-2023 Patient encounter procedure [facility] [place] Work Phone: Start: 10-27-2023 Non-patient / Non-visit [facility] Work Phone: Start: 10-24-2023 Evaluation and management of inpatient [facility] Start: 10-21-2023 Evaluation and management of inpatient [facility] Start: 10-21-2023 End: 10-25-2023 Evaluation and management of inpatient [place] [facility] Start: 10-20-2023 Non-patient / Non-visit [facility] Work Phone: Start: 10-19-2023 Non-patient / Non-visit [facility] Work Phone: Start: 10-18-2023 Non-patient / Non-visit [facility] Work Phone: Start: 07-02-2023 End: 07-02-2023 ambulatory Shaquille Whitten Facility:[facility] Start: 07-02-2023 End: 07-02-2023 ambulatory DO Shaquille Whitten Work Phone: [facility] Work Phone: Start: 07-02-2023 End: 07-02-2023 Patient encounter procedure DO Shaquille Whitten Work Phone: [facility] [place] Work Phone: Start: 06-12-2023 End: 06-12-2023 ambulatory Shaquille Whitten Facility:[facility] Start: 06-12-2023 End: 06-12-2023 ambulatory DO Shaquille Whitten Work Phone: [facility] Work Phone: Start: 06-12-2023 End: 06-12-2023 Patient encounter procedure DO Shaquille Whitten Work Phone: [facility] Work Phone: Start: 05-02-2023 End: 05-02-2023 ambulatory Shaquille Whitten Other [employer] Other Start: 05-02-2023 Telephone encounter Shaquille Bret [facility] [place] Start: 02-21-2023 End: 02-21-2023 ambulatory Allie Gould Other [employer] Other Start: 02-21-2023 Office outpatient vi sit 15 minutes Allie Gould [facility] Start: 04-30-2022 End: 04-30-2022 ambulatory Shaquille Whitten Other [employer] Other Start: 04-30-2022 Encounter for genera l adult medical examination without abnormal findings Shaquille Whitten [facility] [place] Start: 04-30-2022 Periodic preventive med est patient 40-64yrs Shaquille Whitten [facility] [place] Start: 04-10-2020 End: 2020 Patient encounter procedure SHAQUILLE WHITTEN Facility:[facility]1 Procedures Date Procedure Procedure Detail Performing Clinician Start: 06-12-2023 Radiologic examinati on of knee DO Shaquille Bret Work Phone: Start: 04-10-2020 [object Object] SHAQUILLE WHITTEN Comment on above: Performed By: #### C MP, LIPID, PSASC #### [facility] [address] [place] [address] Fanny Flores Plan of Treatment Date Care Activity Detail Author Start: 11-25-2023 Duplex scan of lower limb veins US venous duplex LE BI [facility] Start: 11-25-2023 US Lower extremity v ein - bilateral [facility] Start: 10-28-2023 Patient referral [facility] Work Phone: Patient referral [facility] R [facility] Work Phone: Immunizations Immunization Date Immunization Notes Care Provider Fa [facility] 07-18-2020 influenza, injectabl e, quadrivalent, preservative free Shaquille Whitten Other [facility] Payers Date Payer Category Payer Self-pay [id number] 1960 Unknown [id number] 1959 Unknown [id number] Unknown [id number] [id number] Unknown [id number] [id number] Unknown [id number] Social History Date Type Detail Facility Unknown if ever smoked [employer] Other Sex Assigned At Sex Assigned At Bir th [employer] Other Start: 1960 Sex Assigned At Male F [facility] Start: 10-18-2023 End: 10-18-2023 Tobacco smoking status NHIS Ex-smoker (finding) [facility] Clinical Notes 04-30-2022 to 10-31-2023 Note Date & Type Note Facility 10-31-2023 Note [facility] Electrophysiology Consult Note Reason for visit: hospital follow-up s/p flutter ablation, new onset HFrEF HPI: Ulises Perrin is a 63 y.o. year old with past medical history of atrial flutter s/p ablation 10/24/2023, acute HFrEF EF 10 to 15% per TTE 10/2023 likely nonischemic and due to tachyarrhythmia, hypertension. he was recently mated to [facility] 10/21/2023 for atrial flutter RVR with complaints of shortness of breath and palpitations. he had TTE done which showed EF of 20% and then on 10/24/2023 patient had CTI ablation for symptomatic atrial flutter He was discharged with HFrEF GDMT which included Eliquis 5 mg twice daily, farxiga 10 mg daily, Lasix 40 mg daily, Toprol-XL 25 mg daily, Aldactone 25 mg daily, lisinopril 2.5 mg daily PMH: Past Medical History: Diagnosis Date Abnormal ECG Arrhythmia Atrial flutter (CMS/HCC) PSH: Past Surgical History: Procedure Laterality Date ABLATION OF DYSRHYTHMIC FOCUS ANKLE SURGERY COLON SURGERY HERNIA REPAIR SHOULDER SURGERY TONSILLECTOMY SH: Social Determinants of Health Tobacco Use: Medium Risk (10/31/2023) Patient History Smoking Tobacco Use: Former Smokeless Tobacco Use: Never Passive Exposure: Not on file Alcohol Use: Not on file Financial Resource Strain: Low Risk (10/21/2023) Overall Financial Resource Strain (CARDIA) Difficulty of Paying Living Expenses: Not hard at all Food Insecurity: No Food Insecurity (10/21/2023) Hunger Vital Sign Worried About Running Out of Food in the Last Year: Never true Ran Out of Food in the Last Year: Not on file Transportation Needs: No Transportation Needs (10/21/2023) Transportation Lack of Transportation (Medical): No Lack of Transportation (Non-Medical): Not on file Physical Activity: Not on file Stress: Not on file Social Connections: Not on file Intimate Partner Violence: Not At Risk (10/21/2023) [place] Safety & Environment Fear of Current or Ex-Partner: No Emotionally Abused: Not on file Physically Abused: Not on file Sexually Abused: Not on file Physically or Sexually Abused: Not on file Depression: Not on file Housing Stability: Low Risk (10/21/2023) Housing Stability Vital Sign Unable to Pay for Housing in the Last Year: Not on file Number of Places Lived in the Last Year: Not on file Unstable Housing in the Last Year: No Utilities: Not At Risk (10/21/2023) [place] Utilities Threatened with loss of utilities: No Allergies: Allergies Allergen Reactions Albuterol Aspirin Lactose Salicylic Acid Zithromax [Azithromycin] Weight: 126kg Visit Vitals Ht 1.88 m (6' 2 ) Wt 126 kg (277 lb) BMI 35.56 kg/m??? Smoking Status Former BSA 2.57 m??? Meds: Current Outpatient Medications on File Prior to Visit Medication Sig Dispense Refill apixaban (Eliquis) 5 mg tablet Take 1 tablet (5 mg) by mouth in the morning and at bedtime. 60 tablet 0 dapagliflozin propanediol (Farxiga) 10 mg Take 1 tablet (10 mg) by mouth in the morning for 30 doses. Do not start before October 26, 2023. tablet 0 furosemide (Lasix) 40 mg tablet Take 1 tablet (40 mg) by mouth in the morning for 30 doses. Do not start before October 26, 2023. 30 tablet 0 lisinopril 2.5 mg tablet Take 1 tablet (2.5 mg) by mouth in the morning for 30 doses. Do not start before October 26, 2023. tablet 0 metoprolol succinate XL (Toprol-XL) 25 mg 24 hr tablet Take 1 tablet (25 mg) by mouth in the morning for 30 doses. Do not crush or chew. Do not start before October 26, 2023. tablet 0 spironolactone (Aldactone) 25 mg tablet Take 1 tablet (25 mg) by mouth in the morning for 30 doses. Do not start before October 26, 2023. 30 tablet 0 [DISCONTINUED] lisinopril 20 mg tablet Take 20 mg by mouth in the morning. No current facility-administered medications on file prior to visit. ROS: Cardio Basic Cardiovascular Symptoms: no lightheadedness, no leg edema, no syncope, no orthopnea, no PND, no claudication, Constitutional Constitutional: no fever, no night sweats, no significant weight gain, no significant weight loss, no exercise intolerance Eyes Eyes: no dry eyes, no irritation, no vision change ENMT Ears: no difficulty hearing, no ear pain Nose: no frequent nosebleeds, Mouth/Throat: no sore throat, no bleeding gums, no snoring, no dry mouth, no mouth ulcers, no oral abnormalities, no teeth problems Respiratory Respiratory: no cough, no wheezing, no coughing up blood, no sleep apnea Musculoskeletal Musculoskeletal: no muscle aches, no muscle weakness, joint pain+, no back pain, no swelling in the extremities Integumentary Skin no rash, no ulcer, no varicosities, no discoloration, no pruritus Neurologic Neurologic: no loss of consciousness, no weakness, no numbness, no seizures, no dizziness, no headaches Psychiatric Psych: no depression, feeling safe in relationship, no alcohol abuse, Hematologic/Lymphatic Hematologic/Lymphatic no swollen glands, no (more content not included)... [facility] 10-31-2023 Note Patient here for [facility] and atrial flutter ablation. Doing very well s/p procedure and feels much better. Denies chest pain, SOB, palpitations, lightheadedness/syncope, and bleeding on Eliquis. Just started taking magnesium OTC for muscle cramps. Review of Systems Musculoskeletal: Positive for muscle cramps. All other systems reviewed and are negative. [facility] 10-25-2023 Note Hospital Medicine Discharge Summary Final Discharge Diagnosis: Atrial fibrillation (CMS/HCC) Admission Diagnosis: Atrial fibrillation (CMS/HCC) [I48.91] Hospital course: 63 y.o. male transferred from [facility] where he presented with progressive [...] - Continue lisinopril. Dear Dr. Bret MD, Ulises Church is advised to follow up with you within 1-2 weeks. Follow-up with: Cardiology Scheduled appointments: Future Appointments Date Time Provider Department Center 11/02/2023 9:00 AM NOAH Tuttle [facility] Your medication list START [...] Medications These medications were sent to [facility] [place], [place] - [address] [place] [address] [place] [address] [facility] [place] [address], [facility] [address] apixaban 5 mg tablet dapagliflozin propanediol 10 mg furosemide 40 mg tablet lisinopril 2.5 mg tablet metoprolol succinate XL 25 mg 24 hr tablet spironolactone 25 mg tablet Ulises Church is allergic to albuterol, lactose, and salicylic acid. Disposition: Home or Self Care () Discharge Condition: Stable Code Status: Full Code Diagnostic Results Hematology: Results from last 7 days Lab Units 10/25/23 0421 10/24/23 0513 WBC AUTO 10*3/uL 9.33 8.44 HEMOGLOBIN g/dL 16.8 16.9 HEMATOCRIT % 49.3 49.1 MCV fL 90.5 88.9 PLATELETS AUTO 10*3/uL 259 263 Chemistry: Results from last 7 days Lab Units 10/25/23 0421 10/24/23 0513 10/23/23 0538 SODIUM mmol/L 135* 135* 136 POTASSIUM mmol/L 4.0 4.0 4.0 CHLORIDE mmol/L 97* 100 100 CO2 mmol/L 29 29 28 BUN mg/dL 29* 24 24 CREATININE mg/dL 1.48* 1.24 1.28 GLUCOSE mg/dL 117* 98 111* CALCIUM mg/dL 8.9 9.1 9.2 Results from (more content not included)... [facility] 10-25-2023 Note Physical Therapy Physical Therapy Evaluation Patient Name: Ranjit Perrin : 1960 Today's Date: 10/25/2023 General Family/Caregiver Present: No Subjective: History of Present Illness Ulises Perrin is an 63 y.o. 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 Vision [...] the B hip/kne (more content not included)... [facility] 10-25-2023 Note Cardiology Progress Note Subjective F/U A flutter s/p ablation and HFrEF, Ranjit Perrin is a 63 y.o. male transferred from [facility] due to new onset HFrEF, [...] ???F) Temporal 80 16 95 % -- 10/24/23 2110 119/83 -- -- 89 14 96 % -- 10/24/23 2040 106/78 -- -- 90 20 97 % [...] PROCEDURE: 10/24/2023 PERFORMING PHYSICIAN: Dr. Hernandez Mendiola BILLET WORKER: Dr Ralph Jay CONSENT: Patient NAME OF [...] Imaging Results Assessment: atrial flutter with RVR- [id number]=1- CHF and HTN Acute on chronic heart [...] to DC home today and F/U with [facility] within 1 week with repeat BMP. Carlotta Willard ELECTROPLATER Division of Cardiology, [facility]- [phone] Pager- [phone] Email- [email or web address] 10-25-2023 Note Occupational Therapy Occupational Therapy Evaluation Patient Name: Ranjit Perrin : 1960 Today's Date: 10/25/2023 Time In: 733 Time Out: 741 Ulises Perrin is an 63 y.o. male transferred from [facility] where he presented with progressive [...] Level of Function Prior Function Level of Towns: Independent with ADLs and functional transfers, Independent [...] Eating meals?: None (Independent) Total Score OT [facility]: 24 Assessment/Plan Plan OT Plan: No skilled OT OT Discharge Recommendations: Home OT - Discharge Recommendations Placed: Yes OT Goals Multi-Disciplinary Problems (from Occupational Therapy) Active Problems Not on file [facility] 10-24-2023 Note ATRIAL FLUTTER ABLAT ION PROCEDURE NOTE DATE OF PROCEDURE: 10/24/2023 PERFORMING PHYSICIAN: Dr. Hernandez Mendiola BILLET WORKER: Dr Ralph Jay CONSENT: Patient NAME OF [...] INDICATION: 63 y.o. male was transferred from [facility], the patient presented there with [...] clot. CS os was mapped using the [employer] 3D mapping software. Using ICE, the His [...] and hemostasis noted. He was transferred to observation bay. AHms 106 HVms 54 VERPms 600/250 AV Wenkebach ms 330 AH jump ms NA AVNERP ms NA (AERP before AVNERP) AERP ms 600/200 POST PROCEDURE DIAGNOSIS 1. Symptomatic atrial flutter s/p CTI ablation. 2. EP study revealing no retrograde accessory conduction. PLAN: 1. Anticoagulation after 4 hrs of sheath removal with DOAC 2. Groin precautions. Hernandez Mendiola MD Cardiac Electrophysiology [facility] 10-24-2023 Note Hospital Medicine Daily Progress Note - 10/24/2023 2:54 PM; Room: [address] [place] [address] Admission: 10/20/2023 11:42 PM; Length of stay: 4 days THE HOSPITALIST TEAM PREFERS TO USE [employer] CHAT FOR COMMUNICATION 7AM-7PM. IF I DO NOT RESPOND WITHIN 15 MINUTES, PLEASE PAGE ME/CALL THROUGH THE MOLD YARD CRANE OPERATOR. FROM 7PM-7AM, PLEASE PAGE [phone](COVR) Code Status: Full Code Barriers to Discharge: [...] , FREET4 , CORTISOL , FEV1 , SRZ6DUF , DLCO , RVSP , HDL , LDL No results found for: [id number] , IRON , TIBC , C3 , C4 , KALIE , CANCA , ASO , PSA , CEA , CA125 , CA199 , AFP , CA153 Imaging Complete Echo (TTE) w/wo Imaging Agent, Strain, 3D, Bubble Study 1 1 [facility] Heart Station [address] [phone] (fax) Echocardiogram-[facility] Name: ULISES PERRIN Study Date: 10/21/2023 02:19 PM B/P: 112 mmHg/92 mmHg HR: 108 bpm Date of : 1960 Location: [facility] Height: 74 in. Age: 63 year(s) [...] (0.6cm - 1cm) (more content not included)... [facility] 10-24-2023 Note Patient admitted to the hospital for: A-Fib. Review of the last noted chart Echo from 10/21/2023 reports: EF 20%. Reported echo result qualifies for Cardiac Rehab services per CMS eligibility criteria. A Cardiac Rehab CHF referral diagnosis must also meet CMS criteria. Dionna Velásquez RN, BSN Cardiopulmonary Rehab Coordinator [facility] 10-24-2023 Note ---- Attestation signed by Brant Howard MD at 10/24/2023 8:32 PM I personally saw and examined the patient on the same date of service as resident/fellow Kiersten tOero. I discussed the findings and therapeutic plan with the resident/fellow Kiersten Otero. I agree with the documentation, except for any edits/updates below. Teaching Physician's Revisions: none ---- Cardiology Progress Note Subjective Subjective: Ranjit Perrin is a 63 y.o. male transferred from [facility] due to new onset HFrEF, [...] QT Interval 382 QTC CALCULATION(BAZETT) 485 P [place] 267 R-[place] -9 T Wave [place] 64 Impression Atrial flutter with variable A-V block Cannot rule out Inferior infarct , age undetermined Abnormal ECG No previous ECGs available Confirmed by Nicky TAMEZ, L.S. (2) on 10/21/2023 6:27:14 PM No results found for: CKTOTAL , CKMB , CKMBINDEX , TROPONINI Complete Echo (TTE) w/wo Imaging Agent, Strain, 3D, Bubble Study Result Date: 10/22/2023 1 1 [facility] Heart Station [address] [place] [address] [phone] (fax) Echocardiogram-[facility] Name: ULISES PERRIN Study Date: 10/21/2023 02:19 PM B/P: 112 mmHg/92 mmHg HR: 108 bpm Date of : 1960 Location: [facility] Height: 74 in. Age: 63 year(s) [...] Left ventricular wall (more content not included)... [facility] 10-24-2023 Note 10/24/23 0950 Admission Assessment [...] Discharge? Yes Does the patient have a employment case manager assigned to them through their insurance? No [...] link and activate MyChart? MyChart already active [facility] 10-23-2023 Note Hospital Medicine Daily Progress Note - 10/23/2023 10:40 AM; Room: [address] [place] [address] Admission: 10/20/2023 11:42 PM; Length of stay: 3 days THE HOSPITALIST TEAM PREFERS TO USE [employer] FOR COMMUNICATION 7AM-7PM. IF I DO NOT RESPOND WITHIN 15 MINUTES, PLEASE PAGE ME/CALL THROUGH THE MOLD YARD CRANE OPERATOR. FROM 7PM-7AM, PLEASE PAGE [phone](COVR) Code Status: Full Code Barriers to Discharge: [...] Acute on chronic systolic heart failure (CMS/HCC) Assessment and Plan atrial flutter with [...] , FREET4 , CORTISOL , FEV1 , FTT3RGU , DLCO , RVSP , HDL , LDL No results found for: [id number] , IRON , TIBC , C3 , C4 , KALIE , CANCA , ASO , PSA , CEA , CA125 , CA199 , AFP , CA153 Imaging Complete Echo (TTE) w/wo Imaging Agent, Strain, 3D, Bubble Study 1 1 [facility] Heart Station [address] [place] [address] [phone] (fax) Echocardiogram-[facility] Name: ULISES PERRIN Study Date: 10/21/2023 02:19 PM B/P: 112 mmHg/92 mmHg HR: 108 bpm Date of : 1960 Location: [facility] Height: 74 in. Age: 63 year(s) [...] (0.6cm - 1c (more content not included)... [facility] 10-23-2023 Note ---- Attestation signed by Brant Howard MD at 10/23/2023 2:37 PM I personally saw and examined the patient on the same date of service as resident/fellow Natalia Fischer. I discussed the findings and therapeutic plan with the resident/fellow Natalia Fischer. I agree with the documentation, except for any edits/updates below. Teaching Physician's Revisions: none ---- Cardiology Progress Note Subjective Subjective: Ranjit Perrin is a 63 y.o. male transferred from [facility] due to new onset HFrEF, [...] QT Interval 382 QTC CALCULATION(BAZETT) 485 P [place] 267 R-[place] -9 T Wave [place] 64 Impression Atrial flutter with variable A-V block Cannot rule out Inferior infarct , age undetermined Abnormal ECG No previous ECGs available Confirmed by Nicky TAMEZ, L.S. (2) on 10/21/2023 6:27:14 PM No results found for: CKTOTAL , CKMB , CKMBINDEX , TROPONINI Complete Echo (TTE) w/wo Imaging Agent, Strain, 3D, Bubble Study Result Date: 10/22/2023 1 1 [facility] Heart Station [address] [place] [address] [phone] (fax) Echocardiogram-[facility] Name: ULISES PERRIN Study Date: 10/21/2023 02:19 PM B/P: 112 mmHg/92 mmHg HR: 108 bpm Date of : 1960 Location: [facility] Height: 74 in. Age: 63 year(s) [...] normal size. Korin (more content not included)... [facility] 10-22-2023 Note ---- Attestation signed by Brant Howard MD at 10/22/2023 7:57 PM I personally saw and examined the patient on the same date of service as resident/fellow Natalia Fischer. I discussed the findings and therapeutic plan with the resident/fellow Natalia Fischer. I agree with the documentation, except for any edits/updates below. Teaching Physician's Revisions: none ---- Cardiology Progress Note Subjective Subjective: Ranjit Perrin is a 63 y.o. male transferred from [facility] due to new onset HFrEF, [...] QT Interval 382 QTC CALCULATION(BAZETT) 485 P [place] 267 R-[place] -9 T Wave [place] 64 Impression Atrial flutter with variable A-V block Cannot rule out Inferior infarct , age undetermined Abnormal ECG No previous ECGs available Confirmed by Nicky TAMEZ, L.S. (2) on 10/21/2023 6:27:14 PM No results found for: CKTOTAL , CKMB , CKMBINDEX , TROPONINI Complete Echo (TTE) w/wo Imaging Agent, Strain, 3D, Bubble Study Result Date: 10/22/2023 1 1 [facility] Heart Station [address] [place] [address] [phone] (fax) Echocardiogram-[facility] Name: ULISES PERRIN Study Date: 10/21/2023 02:19 PM B/P: 112 mmHg/92 mmHg HR: 108 bpm Date of : 1960 Location: [facility] Height: 74 in. Age: 63 year(s) [...] abnormality. Right Harjit (more content not included)... [facility] 10-22-2023 Note Hospital Medicine Daily Progress Note - 10/22/2023 11:14 AM; Room: [address] [place] [address] Admission: 10/20/2023 11:42 PM; Length of stay: 2 days THE HOSPITALIST TEAM PREFERS TO USE [employer] CHAT FOR COMMUNICATION 7AM-7PM. IF I DO NOT RESPOND WITHIN 15 MINUTES, PLEASE PAGE ME/CALL THROUGH THE MOLD YARD CRANE OPERATOR. FROM 7PM-7AM, PLEASE PAGE [phone](COVR) Code Status: Full Code Barriers to Discharge: [...] Active Inpatient Problems Principal Problem: Atrial fibrillation ([facility]) Assessment and Plan atrial flutter with rapid [...] , FREET4 , CORTISOL , FEV1 , KKV3CXP , DLCO , RVSP , HDL , LDL No results found for: [id number] , IRON , TIBC , C3 , C4 , KALIE , CANCA , ASO , PSA , CEA , CA125 , CA199 , AFP , CA153 Imaging Complete Echo (TTE) w/wo Imaging Agent, Strain, 3D, Bubble Study 1 1 [facility] Heart Station [address] [place] [address] [phone] (fax) Echocardiogram-[facility] Name: ULISES PERRIN Study Date: 10/21/2023 02:19 PM B/P: 112 mmHg/92 mmHg HR: 108 bpm Date of : 1960 Location: [facility] Height: 74 in. Age: 63 year(s) [...] (1.9cm - 3 (more content not included)... [facility] 10-21-2023 Note 10/21/23 1413 Referral Data Referral Source radiation control worker Patient Information Primary Caregiver Self Activities of Daily Living Assistive Device Not applicable (Pt stating none) Living Arrangement (Current/Prior to Hospitalization) Private residence (Patient stating lives alone in his single-story home (with his dog); daughter lives 1 mile away) Behavior Oriented Communication Talks;Understands speaking Referral To Financial Resources (Patient expressing finances are tight and may consider getting into his 401K; health technical writer sending referral to Area Office on [...] use in the home; Patient stating no HHC service history. Patient stating PCP is Dr. Olivares. Patient stating he is very active in AA and has maintained sobriety for many years. [facility] 10-21-2023 Note Hospital Medicine History and Physical 10/21/2023 12:18 AM THE HOSPITALIST TEAM PREFERS TO USE [employer] CHAT FOR COMMUNICATION 7AM-7PM. IF I DO NOT RESPOND WITHIN 15 MINUTES, PLEASE PAGE ME/CALL THROUGH THE MOLD YARD CRANE OPERATOR. FROM 7PM-7AM, PLEASE PAGE [phone](COVR) Chief Complaint No chief complaint on file. History of Present Illness Ulises Perrin is an 63 y.o. male transferred from [facility] where he presented with progressive [...] Problem List Diagnosis Date Noted Atrial fibrillation ([facility]) 10/21/2023 Assessment and Plan Atrial flutter/fibrillation with [...] already on IV (more content not included)... [facility] 02-21-2023 Evaluation note Encounter Date Diagnosis [...] Wound infection home care material was printed [employer] Other 08-26-2022 Evaluation note* Encounter Date Diagnosis Assessment Notes Treatment Notes Treatment Clinical Notes Apr, Well adult exam (ICD-10 - Z00.00) 62-year-old male who is doing very well and is not on any prescribed medication but is on a bunch of tiup-fjl-effjcgb supplements. His lab work was reviewed with [...] I10) Apr, Skin tag (ICD-10 - L91.8) [employer] Other Evaluation noteNo InformationN[employer] Other Evaluation noteNo assessment information available [facility] Work Phone: Evaluation note* Diagnosis Onset Date Resolution Status Varicose veins of bilateral lower extremities with aurelia n acute Atrial fibrillation chronic [facility] Work Phone: Evaluation note* Diagnosis Onset Date Resolution Status Varicose veins of bilateral lower extremities with aurelia n acute Atrial fibrillation chronic Varicose veins of bilateral lower extremities with aurelia n acute [facility] Work Phone: History general Narrative - Reported* [...] Hospitalization History see above Hospitalization History PNEUMONIA [facility] [employer] Other Hospital Discharge instructionsAmbulatory Orders* Referral to Vascular Surgery Location: None Selected [facility] Work Phone: Summary Purpose Family History No Family History Records Found Relationship Condition Age at Onset Recorded Date/T mellissa father Heart disease Unknown Family history of mental disorder Unknown Unknown Not Specified Diabetes mellitus Unknown Advance Directives No Advanced Directives Records Found Advance Directive Response Recorded Date/ Time Advance Directives No August 9:21am Advance Directive Response Recorded Date/ Time Advance Directives No August 8:21am Chief Complaint and Reason for Visit Chief Complaint M25.562 I10 R73.03 Z51.81 Z12.5 Chief Complaint VARICOSE VEINS/FEELI NG WINDED Reason for Visit Varicose veins of bi lateral lower extremities with pain Atrial fibrillation Chief Complaint VARICOSE VEINS/FEELI NG WINDED Referred by Dr Whitten for Varicose Veins with pain I83.813 Reason for Visit Varicose veins of bi lateral lower extremities with pain Atrial fibrillation Varicose veins of bilateral lower extremities with pain Additional Source Comments (unrecognized sect ion and content) No Status Records FoundNo Status Records FoundNo Status Records FoundNo Status Records Found INFORMATION SOURCE (unrecogn ized section and content) DATE CREATED AUTHOR 04/19/2020 [facility] DATE CREATED AUTHOR AUTHOR'S ORGANIZ ATION 05/27/2020 [facility] DATE CREATED AUTHOR AUTHOR'S ORGANIZ ATION 11/28/2023 [facility] DATE CREATED AUTHOR AUTHOR'S ORGANIZ ATION 12/05/2023 [facility] REASON FOR VISIT (unrecogniz ed section and content) WELL ADULT/1 YEAR FOLLOWiNFE CTED LEFT FOOT, SHOE RUBBED HOLE AND MADE A OREmissed appt Care Teams (unrecognized sec tion and content) Team Status: Active Member Role Status Dates Shaquille Whitten , DO Primary Care Provider Active Team Status: Active Member Role Status Dates Shaquille Whitten , DO Primary Care Provider Active Start: October 18, 2023 Shaquille Whitten Attending Provider Active Start: October 18, 2023 Team Status: Active Member Role Status Dates Shaquille Whitten , DO Primary Care Provider Active Start: October 19, 2023 Shaquille Whitten Attending Provider Active Start: October 19, 2023 Team Status: Active Member Role Status Dates Shaquille Whitten , DO Primary Care Provider Active Start: October 20, 2023 Shaquille Whitten Attending Provider Active Start: October 20, 2023 Team Status: Active Member Role Status Dates Shaquille Whitten , DO Primary Care Provider Active Start: October 27, 2023 Shaquille Whitten Attending Provider Active Start: October 27, 2023 Team Status: Inactive Member Role Status Dates Shaquille Whitten , DO Primary Care Provi lucien, Attending Provider Active Start: October 28, 2023 End: October 28, 2023 Team Status: Inactive Member Role Status Dates Shaquille Whitten , DO Primary Care Provider Active Babs Kim APRN Attending Provider Active Team Status: Inactive Member Role Status Dates Shaquille Whitten , DO Primary Care Provider, Attending Provider Active Team Status: Inactive Member Role Status Dates Shaquille Whitten , DO Primary Care Provi lucien, Referring Provider Active Start: November 10, 2023 End: November 10, 2023 Shaquille Alarcon MD Attending Provider Active Start: November 10, 2023 End: November 10, 2023 Team Status: Inactive Member Role Status Dates Shaquille N Bret , DO Primary Care Provider Active Start: November 25, 2023 End: November 25, 2023 Shaquille Alarcon MD Attending Provider Active Start: November 25, 2023 End: November 25, 2023 Goals (unrecognized section and content) Goals may [...] BE BASED ON THE PRIMARY CLINICAL RECORDS. [employer] [facility]. provides no warranty or guarantee of the accuracy or completeness of information in this document.
== END 2023-12-09 12:53 | disposition home or self-care (01) ==
LOC: CARD 12:52
PROVIDERS: Visit Provider Internal Medicine Cardiovascular Disease
DX: I50.22 Chronic systolic (congestive) heart failure (principal)
CPT/HCPCS: 93306; 93356